=== PATIENT | male | born 1950 | race Caucasian/White ===

== ENCOUNTER 2023-09-20 09:47 | Outpatient (AMB) | payer MEDICARE, SELFPAY ==
--- NOTE | 2023-09-20 09:52 | MHC.OFFWIV ---
Intake Vital Signs 09/20/23 09:54 Height 5 ft 11 in Weight 175 lb BMI 24.4 BP 140/70 H Blood Pressure Location Lt brachial Position Sitting Pulse 66 Pulse Source Pulse Oximeter Pulse Oximetry (%) 98 Oxygen Delivery Method Room Air Intake Visit Reasons: R hand pain Intake Note: Patient is here today for right hand pain ongoing for about a year, some swelling in the wrist. Patient Tobacco Use Status: Never used Tobacco Respiratory Equipment Assistant Required: No Emergency Medical Services Coordinator: Not Required per policy Accompanied by: Self / Same As Patient Allergies Sulfa (Sulfonamide Antibiotics) Allergy (Intermediate, Verified 09/20/23 10:08) Unknown Medication List - Last Reconciled 09/20/23 by RICA Hollins- No Known Home Meds Do you need a note to return to daycare/school/sports/work: No HPI HPI Comments History of Present Illness Details Here today w/ c/o R hand numbness. Right hand dominant. Right hand slight numbness of fingers in the AM started 1 year ago Extending arm to the side relieved this initially Used supportive care at home w/ some mild effect Worse since onset Main area of pain is along the radial nerve Brushing teeth also exacerbates his sx. Very active Denies fever chills redness of the joint. Reports some sort of accident in the past year but without injury to the joint on the right wrist or hand PFSH Social History Patient Tobacco Use Status: Never used Tobacco Review of Systems Const All systems reviewed & are unremarkable except as noted in HPI and below Physical Exam Vital Signs: Last Vital Signs Pulse 66 09/20/23 09:54 BP 140/70 H 09/20/23 09:54 Pulse Ox 98 09/20/23 09:54 Oxygen Delivery Method Room Air 09/20/23 09:54 BMI result Body Mass Index 24.4 Const Other: Right wrist: Positive Tinel and Phalen's on the right Hand grasps strong Cap refill within normal limits Radial pulse within limits Assessment & Plan Assessment & Plan (1) Carpal tunnel syndrome of right wrist: Code(s): G56.01 - Carpal tunnel syndrome, right upper limb Plan: . Plan Discussed treatment options with him. He wishes to start with physical therapy and only pursue a hand surgery referral if needed. I did let him know that sometimes the wait to get into the hand surgeon can be sometimes I have placed this referral now and have advised him to schedule this and cancel if he feels physical therapy is effective. He can use a wrist splint at bedtime control the symptoms that he suffers 1st thing upon waking in the morning. This note is constructed using voice recognition software. While every effort has been made to ensure accuracy in costumed character, still errors may have been included Sometimes, these errors may affect the content or meaning of the given sentence . Orders: Orders PT Evaluation and Treatment Today G56.01 - Carpal tunnel syndrome, right upper limb Referrals Hand Surgery Referral G56.01 - Carpal tunnel syndrome, right upper limb Coding Level of Care Code Est Pt Level 3 (54327) Diagnoses Carpal tunnel syndrome of right wrist G56.01
[2023-09-20 09:54] VITALS: BP 140/70; PULSE 66; O2SAT 98; BMI 24.4
== END 2023-09-20 10:34 | disposition home or self-care (01) ==
PROVIDERS: Visit Provider Nurse Practitioner Family
DX: G56.01 Carpal tunnel syndrome, right upper limb (principal)
CPT/HCPCS: 99213

== ENCOUNTER 2023-10-18 10:56 | Outpatient (AMB) | payer MEDICARE, SELFPAY ==
--- NOTE | 2023-10-18 11:07 | A.OFFPC_ITS ---
Vital Signs 10/18/23 11:08 Height 5 ft 11 in Weight 5 lb 11 oz BMI 0.8 BP 136/74 Blood Pressure Location Rt brachial Position Sitting Respiration 13 Pulse 67 Pulse Source Pulse Oximeter Temp 98.6 F Temp Source Temporal Artery Scan Pulse Oximetry (%) 99 Oxygen Delivery Method Room Air Intake Visit Reasons: est care Intake Note: Patient is here to establish care and would like to discuss concerns with the provider. Metal Ceiling Builder Required: No Accompanied by: Self / Same As Patient Allergies Sulfa (Sulfonamide Antibiotics) Allergy (Intermediate, Verified 10/18/23 11:26) Unknown Medication List - Last Reconciled 10/18/23 by Florinda Pike, [facility]- No Known Home Meds Tobacco use date assessed: 10/18/23 Fall risk assessment: No Falls in past year Last assessed Fall Risk: 10/18/23 Dental Screening Dental Screen Date: 10/18/23 Did you have a dental visit in the last 12 months?: Yes Did you have a dental problem in the last 6 months where you did not have access to dental care?: No Was dental information given to patient?: Patient has dentist HPI HPI Comments History of Present Illness Details 73-year-old male with carpal tunnel synd michael, day Quervain's tenosynovitis, CVA 12/2022 [facility] for stroke [facility] Here today with no previous records Here today with complaints of numbness on right lateral thigh. Reports stroke w/ right josé manuel in 2022, Not on meds. Does not follow with Cards or Neuro. numbness right lateral upper leg, since stroke 12/2022. Intermittent. Has occurred 3 times in the last 3 months. Last time 1 week ago while hiking in [place]. REports normal strength. Denies swelling. Remains very active. Has no interest in labs or diagnostics for evaluation of this. [facility] Medical History (Updated 10/18/23 @ 13:09 by Linda Weiner CMA) Stroke Inguinal hernia Surgical History (Updated 10/18/23 @ 13:09 by Linda Weiner CMA) Hx of inguinal hernia surgery History of knee surgery History of hand surgery Family History (Updated 10/18/23 @ 13:09 by Linda Weiner CMA) Mother Cancer Father Cardiovascular disease Social History (Updated 10/18/23 @ 11:18 by Linda Weiner [facility]) Household Members: None Housing: Other Housing Other:: Mobile home 75 years or older and lives alone: No Alcohol intake: current Alcohol intake frequency: a few times a week Alcohol type: wine Patient Tobacco Use Status: Never used Tobacco e-Cigarette/Vaping Use: Never Used service: No Current occupational status: retired Current occupational exposures/hazards: No Cognitive needs: No Hearing needs: No Vision needs: No Questionnaire PHQ-9 Over the last 2 weeks, how often have you been bothered by any of the following problems? 1. Little interest or pleasure in doing things: not at all 2. Feeling down, depressed, or hopeless: not at all 3. Trouble falling or staying asleep, or sleeping too much: not at all 4. Feeling tired or having little energy: not at all 5. Poor appetite or overeating: not at all 6. Feeling bad about yourself - or that you are a failure or have let yourself or your family down: not at all 7. Trouble concentrating on things, such as reading the newspaper or watching te levision: not at all 8. Moving or speaking so slowly that other people could have noticed. Or the opposite - being so fidgety or restless that you have been moving around a lot more than usual: not at all 9. Thoughts that you would be better off or of hurting yourself in some way: not at all Total score: 0 Depression Screening Interpretation: Negative Depression Screening Done: Yes 94812 - PHQ-9 Billing: Yes Source: Developed by Drs. Derrick Garcia, Sirena Whitlock, Moo Lynn and colleagues, with an educational maycol from [employer]. Thrive Questionnaire Date Thrive assessed: 10/18/23 I am a: Patient What is your living situation today?: I have a steady place to live Within the past 12 months, did the food you bought not last and you didn't have the money to get more?: Never true Within the past 12 months, did you worry whether your food would run out before you got money to buy more?: Never true Do you have trouble paying for medicines?: No Do you have trouble getting transportation to medical appointments?: No Do you have trouble paying your heating and electricity bill?: No Do you have trouble taking care of your child, family member or friend?: No Do you have trouble with day-to-day activities such as bathing, preparing meals, shopping, managing finances, etc.?: No Are you currently unemployed and looking for a job?: No Are you interested in more education?: No Please select the resources that you would like help with: None Currently or been in a relationship where the following occur: no concerns reported THRIVE Score: 0 AUDIT C Alcohol Use Questionnaire (AUDIT-C) 1. How often do you have a drink containing alcohol?: Monthly or less 2. How many drinks containing alcohol do you have on a typical day when you are drinking?: 1 or 2 3. How often do you have six or more drinks on one occasion?: Never Total Score: 1 Score Reviewed/Action Taken: Yes AAMIR-7 AMB Questionnaire AAMIR-7 Date AAMIR - 7 assessed: 10/18/23 Feeling nervous, anxious, or on edge: 0 = Not at all Not being able to stop or control worryin = Not at all Worrying too much about different things: 0 = Not at all Trouble relaxin = Not at all Being so restless that it is hard to sit still: 0 = Not at all Becoming easily annoyed or irritable: 0 = Not at all Feeling afraid as if something awful might happen: 0 = Not at all Total AAMIR-7 score (0-4 normal; 5-9 mild; 10-14 moderate; 15-21 severe): 0 Source: Developed by Drs. Derrick Garcia, Sirena Whitlock, Moo Lynn and colleagues, with an educational maycol from [employer]. AAMIR-7 Assessment Billing AAMIR-7 Assessment Tool: AAMIR-7 Assessment 97281 Review of Systems Const All systems reviewed & are unremarkable except as noted in HPI and below Physical exam (Primary Care) Vital Signs: Last Vital Signs Temp 98.6 F 10/18/23 11:08 Pulse 67 10/18/23 11:08 Resp 13 10/18/23 11:08 BP 136/74 10/18/23 11:08 Pulse Ox 99 10/18/23 11:08 Oxygen Delivery Method Room Air 10/18/23 11:08 BMI result Body Mass Index 0.8 Tobacco/Smoking Status: Tobacco use Status Tobacco use date assessed 10/18/23 10/18/23 11:18 Patient Tobacco Use Status Never used Tobacco 10/18/23 11:18 e-Cigarette/Vaping Use Never Used 10/18/23 11:18 PHQ-9: PHQ-9 Score PHQ-9: Total score 0 10/18/23 11:38 Depression Screening Interpretation: Negative Thrive Assessment: Date of Thrive Assessment Date Thrive assessed 10/18/23 10/18/23 11:38 Currently or been in a relationship where the following occur: no concerns reported Const Other: Awake alert oriented Moves all extremities x4 neuro exam grossly intact Unable to reproduce the symptoms he complains of. No spinal tenderness. No CVAT. No edema. Assessment and Plan Assessment & Plan (1) Meralgia paresthetica, right lower limb: Comment: offered PT and labs. Declined at this time. will cont to monitor and f/u if interested in addl workup. Code(s): G57.11 - Meralgia paresthetica, right lower limb Plan This note is constructed using voice recognition software. While every effort has been made to ensure accuracy in square cutter, still errors may have been included Sometimes, these errors may affect the content or meaning of the given sentence . Total time spent caring for the patient today was 30 minutes. This includes time spent before the visit reviewing the chart, time spent during the visit, and time spent after the visit on documentation Coding Level of Care Code Est Pt Level 4 (20667) Diagnoses Meralgia paresthetica, right lower limb G57.11 Additional Codes AAMIR-7 Assessment Billing - AAMIR-7 Assessment Tool: AAMIR-7 Assessment 36824 ([id number])
[2023-10-18 11:08] VITALS: BP 136/74; PULSE 67; RESP 13; TEMP 37; O2SAT 99
== END 2023-10-18 11:40 | disposition home or self-care (01) ==
PROVIDERS: Visit Provider Nurse Practitioner Family
DX: G57.11 Meralgia paresthetica, right lower limb (principal)
CPT/HCPCS: 99214

== ENCOUNTER 2023-10-30 10:31 | Outpatient (AMB) | payer MEDICARE, SELFPAY ==
--- NOTE | 2023-10-30 10:50 | MHC.PC.OV ---
Vital Signs 10/30/23 10:51 Height 5 ft 11 in Weight 173 lb 0.4 oz BMI 24.1 BP 132/80 Blood Pressure Location Lt brachial Position Sitting Pulse 84 Pulse Source Pulse Oximeter Pulse Oximetry (%) 99 Oxygen Delivery Method Room Air Intake Visit Reasons: eye issue Intake Note: pt states left eye swelling X3days Learning Support Teacher Required: No Allergies Sulfa (Sulfonamide Antibiotics) Allergy (Intermediate, Verified 10/30/23 11:54) Unknown Medication List - Last [facility]30[facility]23 [facility] No Known Home Meds Tobacco use date assessed: 10/30/23 Fall risk assessment: No Falls in past year HPI HPI Comments History of Present Illness Details L upper eye lid swelling started a few days ago has been applying ice and hot comps ice helped more than the heat Reports normal vision No drainage Denies trauma or headache PFSH Medical History (Updated 10/18/23 @ 13:09 by Linda Weiner CMA) Stroke Inguinal hernia Surgical History (Updated 10/18/23 @ 13:09 by Linda Weiner CMA) Hx of inguinal hernia surgery History of knee surgery History of hand surgery Family History (Updated 10/18/23 @ 13:09 by Linda Weiner CMA) Mother Cancer Father Cardiovascular disease Social History (Updated 10/18/23 @ 11:18 by Linda Weiner CMA) Household Members: None Housing: Other Housing Other:: Mobile home 75 years or older and lives alone: No Alcohol intake: current Alcohol intake frequency: a few times a week Alcohol type: wine Patient Tobacco Use Status: Never used Tobacco e-Cigarette/Vaping Use: Never Used service: No Current occupational status: retired Current occupational exposures/hazards: No Cognitive needs: No Hearing needs: No Vision needs: No Questionnaire Thrive Questionnaire Date Thrive assessed: 10/18/23 I am a: Patient What is your living situation today?: I have a steady place to live Within the past 12 months, did the food you bought not last and you didn't have the money to get more?: Never true Within the past 12 months, did you worry whether your food would run out before you got money to buy more?: Never true Do you have trouble paying for medicines?: No Do you have trouble getting transportation to medical appointments?: No Do you have trouble paying your heating and electricity bill?: No Do you have trouble taking care of your child, family member or friend?: No Do you have trouble with day-to-day activities such as bathing, preparing meals, shopping, managing finances, etc.?: No Are you currently unemployed and looking for a job?: No Are you interested in more education?: No Please select the resources that you would like help with: None THRIVE Score: 0 AUDIT C Alcohol Use Questionnaire (AUDIT-C) 1. How often do you have a drink containing alcohol?: Monthly or less 2. How many drinks containing alcohol do you have on a typical day when you are drinking?: 1 or 2 3. How often do you have six or more drinks on one occasion?: Never Total Score: 1 Score Reviewed/Action Taken: Yes AAMIR-7 AMB Questionnaire AAMIR-7 Date AAMIR - 7 assessed: 10/18/23 Source: Developed by Drs. Derrick Garcia, Sirena Whitlock, Moo Lynn and colleagues, with an educational maycol from [employer]. Review of Systems Const All systems reviewed & are unremarkable except as noted in HPI and below Physical exam (Primary Care) Vital Signs: Last Vital Signs Pulse 84 10/30/23 10:51 BP 132/80 10/30/23 10:51 Pulse Ox 99 10/30/23 10:51 Oxygen Delivery Method Room Air 10/30/23 10:51 BMI result Body Mass Index 24.1 Tobacco/Smoking Status: Tobacco use Status Tobacco use date assessed 10/30/23 10/30/23 11:12 Patient Tobacco Use Status Never used Tobacco 10/30/23 10:53 e-Cigarette/Vaping Use Never Used 10/30/23 10:53 Thrive Assessment: Date of Thrive Assessment Date Thrive assessed 10/18/23 10/30/23 10:53 Const Other: PERRLA, EOMI, SCLERAS NONICTERIC BILAT LEFT UPPER LID + EDEMA AND ERYTHEMA W/O PERIORBITAL INVOLVEMENT, STYE NOTED, MILD YELLOW CRUSTING NOTED TO EYE LASHES Assessment and Plan Assessment & Plan (1) Hordeolum externum left upper eyelid: Code(s): H00.014 - Hordeolum externum left upper eyelid Medications: New erythromycin 0.5 inches ophthalmic (eye) BID 3.5 grams 0RF 5 days Coding Level of Care Code Est Pt Level 3 (34203) Diagnoses Hordeolum externum left upper eyelid H00.014
[2023-10-30 10:51] VITALS: BP 132/80; PULSE 84; O2SAT 99; BMI 24.1
== END 2023-10-30 12:00 | disposition home or self-care (01) ==
PROVIDERS: PCP Family Medicine; Visit Provider Nurse Practitioner Family
DX: H00.014 Hordeolum externum left upper eyelid (principal)
CPT/HCPCS: 99213

== ENCOUNTER 2023-10-31 09:30 | Outpatient (RCR) | payer MEDICARE, OTHER, SELFPAY ==
--- NOTE | 2023-10-14 11:20 | MHC.OT.EP ---
[address] [phone] Occupational Therapy Plan of Care Patient Name: Forest Marks Date of Evaluation: 10/14/23 Diagnosis: R CTS Pain Location: Mostly pain free at rest Sharp 8/10 pain through right thumb and radiating down radial wrist Tenderness over radial wrist Pain Score: 8 Pain Scale Used: Numeric (0 - 10) Aggravating Factors: Supination, grasping objects/free weights Alleviating Factors: Self massage to hand, ice at times Assessment: 73 yo male was seen in walk-in clinic 09/20/23 w/ right hand pain and edema, had been gradually worsening. He was referred to OT for further assessment and management. On assessment today, he reports pain free at baseline and no significant nighttime pain, but reports sharp discomfort w/ forearm supination and gripping tasks. He has arthritic deformities noted in digits w/ general end range stiffness, right worse than left, and mildly positive CMC grind test for OA. Otherwise provocative testing consistent with De Quervain's tendinitis. He will benefit from cont'd therapy services for conservative management through joint protection, activity modification and progression of strengthening and functional activities. Frequency and Duration: The patient will be seen 2x/wk for 4 weeks Short Term Goals: Ind w/ thumb spica orthosis wear Ind w/ joint protection techniques Ind w/ HEP/stretching program Residential Goals: Pt to report pain <3/10 w/ moderate daily activities Progress to strengthening routine w/ pain managed Right gross grasp > 80lb Treatment Plan: Therapeutic Exercise Therapeutic Activity Home Exercise Program Splinting Patient Education Edema Control ADL Training Ultrasound Iontophoresis Paraffin Fluidotherapy MHP Cold Packs Joint Mobilization Soft Tissue Mobilization Kinesiotaping Recommend neoprene thumb spica orthosis Trial ionto w/ dexamethasone Electronically Signed By: Shantell Ayala OTR/L CHT Please Sign and return to therapist. Thank you once again for your referral.
== END 2023-11-07 09:05 | disposition home or self-care (01) ==
LOC: HO.OT 09:30
PROVIDERS: PCP Family Medicine; Visit Provider Nurse Practitioner Family
DX: G56.01 Carpal tunnel syndrome, right upper limb (principal)
CPT/HCPCS: 97033; 97110; 97165

== ENCOUNTER 2023-12-02 08:56 | Outpatient (AMB) | payer MEDICARE, SELFPAY ==
[2023-12-02 09:16] VITALS: BP 120/78; PULSE 79; O2SAT 100; BMI 24.3
--- NOTE | 2023-12-02 09:16 | A.OFFPC_ITS ---
Vital Signs 12/02/23 09:16 Height 5 ft 11 in Weight 174 lb BMI 24.3 BP 120/78 Blood Pressure Location Lt brachial Position Sitting Pulse 79 Pulse Source Pulse Oximeter Pulse Oximetry (%) 100 Oxygen Delivery Method Room Air Intake Visit Reasons: Follow up regarding last appointment Intake Note: Patient is here for follow up on numbness in the right thigh. Allergies Sulfa (Sulfonamide Antibiotics) Allergy (Intermediate, Verified 12/02/23 09:20) Unknown Medication List - Last Reconciled 12/02/23 by JACQUE Hollins No Known Home Meds Tobacco use date assessed: 12/02/23 Fall risk assessment: No Falls in past year Last assessed Fall Risk: 12/02/23 HPI HPI Comments History of Present Illness Details 73-year-old male with carpal tunnel synd michael, day Quervain's tenosynovitis Health maintenance [facility] Here today to fu on complaints of numbness in Right thigh. started a few months ago. occurring more frequently only happening when standings never when lying or sitting down only affects right thigh. Denies any red flag neuro sx. [facility] Medical History (Updated 12/02/23 @ 09:46 by JACQUE Hollins) Stroke Inguinal hernia Surgical History (Updated 10/18/23 @ 13:09 by Linda Weiner CMA) Hx of inguinal hernia surgery History of knee surgery History of hand surgery Family History (Updated 10/18/23 @ 13:09 by Linda Weiner CMA) Mother Cancer Father Cardiovascular disease Social History (Updated 10/18/23 @ 11:18 by Linda Weiner CMA) Household Members: None Housing: Other Housing Other:: Mobile home 75 years or older and lives alone: No Alcohol intake: current Alcohol intake frequency: a few times a week Alcohol type: wine Patient Tobacco Use Status: Never used Tobacco e-Cigarette/Vaping Use: Never Used service: No Current occupational status: retired Current occupational exposures/hazards: No Cognitive needs: No Hearing needs: No Vision needs: No Questionnaire Thrive Questionnaire Date Thrive assessed: 10/18/23 AAMIR-7 AMB Questionnaire AAMIR-7 Date AAMIR - 7 assessed: 10/18/23 Source: Developed by Drs. Derrick Garcia, Moo Michel and colleagues, with an educational maycol from [employer]. Review of Systems Const All systems reviewed & are unremarkable except as noted in HPI and below Physical exam (Primary Care) Vital Signs: Last Vital Signs Pulse 79 12/02/23 09:16 BP 120/78 12/02/23 09:16 Pulse Ox 100 12/02/23 09:16 Oxygen Delivery Method Room Air 12/02/23 09:16 BMI result Body Mass Index 24.3 Tobacco/Smoking Status: Tobacco use Status Tobacco use date assessed 12/02/23 12/02/23 09:21 Patient Tobacco Use Status Never used Tobacco 12/02/23 09:19 e-Cigarette/Vaping Use Never Used 12/02/23 09:19 Thrive Assessment: Date of Thrive Assessment Date Thrive assessed 10/18/23 12/02/23 09:19 Const Other: FROM and normal strength RLE Neurovasc intact Assessment and Plan Assessment & Plan (1) Meralgia paresthetica, right lower limb: Comment: start PT If no improvement or worsening of sx, please return to office. At this time we will consider MRI Code(s): G57.11 - Meralgia paresthetica, right lower limb (2) Paresthesia of right leg: Code(s): R20.2 - Paresthesia of skin Plan This note is constructed using voice recognition software. While every effort has been made to ensure accuracy in wardrobe specialist, still errors may have been included Sometimes, these errors may affect the content or meaning of the given sentence . Total time spent caring for the patient today was 30 minutes. This includes time spent before the visit reviewing the chart, time spent during the visit, and time spent after the visit on documentation Orders: Orders PT Evaluation and Treatment Today G57.11 - Meralgia paresthetica, right lower limb, R20.2 - Paresthesia of skin Coding Level of Care Code Est Pt Level 4 (23734) Diagnoses Meralgia paresthetica, right lower limb G57.11 Paresthesia of right leg R20.2
== END 2023-12-02 10:50 | disposition home or self-care (01) ==
PROVIDERS: PCP Family Medicine; Visit Provider Nurse Practitioner Family
DX: G57.11 Meralgia paresthetica, right lower limb (principal); R20.2 Paresthesia of skin
CPT/HCPCS: 99214

== ENCOUNTER 2024-01-16 10:00 | Outpatient (RCR) | payer MEDICARE, OTHER, SELFPAY ==
--- NOTE | 2024-01-16 11:00 | MHC.PT.DC ---
[facility] [place] Office [place] Office [place] Office [address] Jaden Garcia [address] [phone] F: [phone] F: [phone] F: [phone] F: [phone] Physical Therapy Discharge Report Diagnosis: RIGHT THIGH PARESTHESIA (KP) Date of Surgery: Date of Evaluation: 12/17/23 Date of Discharge: 01/16/24 Treatments to Date: 7 Cancellations to Date: 0 No Shows to Date: 0 Discharge Status: Achieved Goals Improved Function Independent with HEP Discharge Summary: Pt has met all goals at this time and has returned to PLOF and ADLs. Pt reports minimally symptomatic at rare occasion now. Requesting d/c at this time so reviewed above exercises, given black TB today as well. LEFI completed and in chart. Electronically signed by: Jasmyn Pires PT DPT Please sign and return to therapist. Thank you for your referral.
== END 2024-01-16 11:00 | disposition home or self-care (01) ==
LOC: HO.PT 10:00
PROVIDERS: PCP Family Medicine; Visit Provider Nurse Practitioner Family
DX: G57.11 Meralgia paresthetica, right lower limb (principal); R20.2 Paresthesia of skin
CPT/HCPCS: 97110; 97161; 97535

== ENCOUNTER 2024-01-31 10:53 | Outpatient (AMB) | payer MEDICARE, SELFPAY ==
[2024-01-31 11:46] VITALS: BP 129/74; PULSE 69; O2SAT 99; BMI 22.9
--- NOTE | 2024-01-31 11:46 | MHC.PC.OV ---
Vital Signs 01/31/24 11:46 Height 5 ft 11 in Weight 164 lb BMI 22.9 BP 129/74 Blood Pressure Location Lt brachial Position Sitting Pulse 69 Pulse Source Pulse Oximeter Pulse Oximetry (%) 99 Oxygen Delivery Method Room Air Intake Visit Reasons: CPE Intake Note: Patient is here for physical, had tingling in right upper thigh, finished two weeks ago. Allergies Sulfa (Sulfonamide Antibiotics) Allergy (Intermediate, Verified 01/31/24 11:52) Unknown Tobacco use date assessed: 12/02/23 HPI CPE HPI Details 73 y/o male presents for a CPE with f/u labs and health maintenance. No recent labs to review. Has had colonoscopy x1 about 10 years ago. Pt reports tingling in R upper thigh which improved after physical therapy. HPI Comments History of Present Illness Details Documentation assistance for Josue Ren MD, was provided by Angelo Dong, Funds Development Director on 01/31/2024 at 12:31 PM EST. I, Dr. Ren, have read, observed, and verified documentation. PFSH Medical History Stroke Inguinal hernia Surgical History Hx of inguinal hernia surgery History of knee surgery History of hand surgery Family History Mother Cancer Father Cardiovascular disease Social History Household Members: None Housing: Other Housing Other:: Mobile home 75 years or older and lives alone: No Alcohol intake: current Alcohol intake frequency: a few times a week Alcohol type: wine Patient Tobacco Use Status: Never used Tobacco e-Cigarette/Vaping Use: Never Used service: No Current occupational status: retired Current occupational exposures/hazards: No Cognitive needs: No Hearing needs: No Vision needs: No Questionnaire PHQ-9 Over the last 2 weeks, how often have you been bothered by any of the following problems? 1. Little interest or pleasure in doing things: not at all 2. Feeling down, depressed, or hopeless: not at all 3. Trouble falling or staying asleep, or sleeping too much: not at all 4. Feeling tired or having little energy: not at all 5. Poor appetite or overeating: not at all 6. Feeling bad about yourself - or that you are a failure or have let yourself or your family down: not at all 7. Trouble concentrating on things, such as reading the newspaper or watching television: not at all 8. Moving or speaking so slowly that other people could have noticed. Or the opposite - being so fidgety or restless that you have been moving around a lot more than usual: not at all 9. Thoughts that you would be better off or of hurting yourself in some way: not at all Total score: 0 Depression Screening Interpretation: Negative Depression Screening Done: Yes 36718 - PHQ-9 Billing: Yes Source: Developed by Drs. Derrick Garcia, Sirena Whitlock, Moo Lynn and colleagues, with an educational maycol from [employer]. Thrive Questionnaire Date Thrive assessed: 10/18/23 I am a: Patient What is your living situation today?: I have a steady place to live Within the past 12 months, did the food you bought not last and you didn't have the money to get more?: Never true Within the past 12 months, did you worry whether your food would run out before you got money to buy more?: Never true Do you have trouble paying for medicines?: No Do you have trouble getting transportation to medical appointments?: No Do you have trouble paying your heating and electricity bill?: No Do you have trouble taking care of your child, family member or friend?: No Do you have trouble with day-to-day activities such as bathing, preparing meals, shopping, managing finances, etc.?: No Are you currently unemployed and looking for a job?: No Are you interested in more education?: No THRIVE Score: 0 AUDIT C Alcohol Use Questionnaire (AUDIT-C) 1. How often do you have a drink containing alcohol?: Monthly or less 2. How many drinks containing alcohol do you have on a typical day when you are drinking?: 1 or 2 3. How often do you have six or more drinks on one occasion?: Never Total Score: 1 AAMIR-7 AMB Questionnaire AAMIR-7 Date AAMIR - 7 assessed: 01/31/24 Feeling nervous, anxious, or on edge: 0 = Not at all Not being able to stop or control worryin = Not at all Worrying too much about different things: 0 = Not at all Trouble relaxin = Not at all Being so restless that it is hard to sit still: 0 = Not at all Becoming easily annoyed or irritable: 0 = Not at all Feeling afraid as if something awful might happen: 0 = Not at all Total AAMIR-7 score (0-4 normal; 5-9 mild; 10-14 moderate; 15-21 severe): 0 Source: Developed by Drs. Derrick Garcia, Sirena Whitlock, Moo Lynn and colleagues, with an educational maycol from [employer]. AAMIR-7 Assessment Billing AAMIR-7 Assessment Tool: AAMRI-7 Assessment 28311 Review of Systems Const Denies chills, Denies fatigue, Denies fever(s), Denies headache(s) and Denies weakness Eyes Denies change in vision ENT Denies dizziness, Denies headache(s), Denies hearing loss, Denies nasal congestion, Denies sinus pain, Denies sinus pressure and Denies sore throat Card Denies chest pain, Denies lightheadedness, Denies dyspnea and Denies other (palpitations) Resp Denies cough, Denies dyspnea and Denies wheezing GI Denies abdominal pain, Denies melena, Denies hematochezia, Denies change in bowel habits, Denies dyspepsia and Denies nausea Denies hematuria and Denies dysuria Musc Denies abnormal gait, Denies myalgias, Denies arthralgias, Denies numbness and Denies tingling Skin/Breast Denies rash, Denies unusual bruising and Denies wounds Neuro Denies abnormal gait, Denies dizziness, Denies headache(s), Denies memory loss, Denies numbness, Denies Sensory deficit (Neuro), Denies tingling and Denies weakness Psych Denies anxiety, Denies depression and Denies memory loss Endo Denies cold intolerance, Denies fatigue, Denies heat intolerance, Denies polydipsia and Denies polyuria Efren/Lymph Denies easy bleeding and Denies easy bruising Aller/Immun Denies wheezing Physical exam (Primary Care) Vital Signs: Last Vital Signs Pulse 69 01/31/24 11:46 BP 129/74 01/31/24 11:46 Pulse Ox 99 01/31/24 11:46 Oxygen Delivery Method Room Air 01/31/24 11:46 BMI result Body Mass Index 22.9 Tobacco/Smoking Status: Tobacco use Status Tobacco use date assessed 12/02/23 01/31/24 11:54 Patient Tobacco Use Status Never used Tobacco 01/31/24 11:54 e-Cigarette/Vaping Use Never Used 01/31/24 11:54 PHQ-9: PHQ-9 Score PHQ-9: Total score 0 01/31/24 11:54 Depression Screening Interpretation: Negative Thrive Assessment: Date of Thrive Assessment Date Thrive assessed 10/18/23 01/31/24 11:54 Const General: no acute distress, well developed, alert and awake Nutritional Appearance: well nourished Orientation/consciousness: patient oriented x3 HENMT Head: Yes normocephalic and Yes atraumatic Ears: hearing grossly normal bilaterally and TM's normal bilaterally General nose exam: Normal external nose present and Normal nares present Mouth: Normal oral and palatal mucosa present and moist mucous membranes Teeth and gingiva: dentition normal Throat: Yes posterior oropharynx normal Eyes General: appearance normal, both eyes and all related structures Pupils: Equal, round and reactive pupils present and Pupil accommodation reflex normal EOM: EOMs intact bilaterally Neck Neck: Yes normal visual inspection, Yes no lymphadenopathy and Yes trachea midline Thyroid: Thyroid normal Carotids: no bruits Lymphatic: no lymphadenopathy noted Chest Chest palpation & inspection: normal inspection of the chest Resp Effort & Inspection: normal respiratory effort Auscultation: clear to auscultation bilaterally Cardio Rate: regular rate Rhythm: regular rhythm Heart sounds: S1 normal heart sound present, S2 normal heart sound present, no gallops, no murmurs and no rubs Bruits: no abdominal aortic bruits and no carotid bruits GI Palpation (GI): No Abdominal aortic bruit present, Soft to palpation, nontender, No hepatosplenomegaly present and No Rebound tenderness present Auscultation: normal bowel sounds General: Yes no CVA tenderness Back/Spine/Pelvis Back: no CVA tenderness Cervical Spine: cervical ROM normal and No Cervical spine tenderness Thoracic/Lumbar Spine: thoraco-lumbar ROM normal, No pain with thoraco-lumbar ROM, No thoracic spinal tenderness and No lumbar spinal tenderness Skin Lesions: no lesions Rashes: no rashes Trauma: no lacerations or abrasions Wounds: no wounds Nails: normal Neuro General: patient oriented x3 Cranial nerves: Yes Equal, round and reactive pupils present Cognition (Neuro): normal cognition Gait exam (Neuro): Normal gait present Motor exam (neuro): 5/5 motor strength present throughout Sensory Exam: No Sensory deficit (Neuro) Deep tendon reflexes (DTR's): Right patellar reflex intensity grade: 2+ and Left patellar reflex intensity grade: 2+ Extrem General: Yes normal to inspection and No edema Psych Appearance: grossly normal Affect: normal affect Attitude: cooperative Thought process: Normal thought process present Assessment and Plan Assessment & Plan (1) Adult general medical exam: Code(s): Z00.00 - Encounter for general adult medical examination without abnormal findings Plan: 73-year-old?male?presents?for?complete?physical?exam Exam?within?normal?limits?except?as?described?below Encouraged?ongoing?healthy?diet?with?active?lifestyle?and?plenty?of?exercise (2) Paresthesia of right leg: Code(s): R20.2 - Paresthesia of skin Plan: Gets?numbness?and?tingling?at?right?lateral?aspect?of?thigh Has?attended?physical?therapy?which?resolves?the?problem?and?he?continues?to?do?these?exercises?at?home?now. (3) Wound of skin: Code(s): T14.8XXA - Other injury of unspecified body region, initial encounter Plan: Wound?at?right?anterior?forearm?with?mild?surrounding?erythema No?indication?for?an?antibiotic?at?this?time?but?he?will?watch?this?to?ensure?that?it?resolved He?had?a?tetanus?shot?last?year (4) Screening for colon cancer: Code(s): Z12.11 - Encounter for screening for malignant neoplasm of colon Plan: Colonoscopy?10?years?ago?which?was?negative?and?he?was?told?to?follow-up?in?10?years. No?family?history?of?colon?cancer?or?polyps Will?send?Cologuard?test (5) Screening for prostate cancer: Code(s): Z12.5 - Encounter for screening for malignant neoplasm of prostate Plan: Check?PSA Orders: Orders Comprehensive [place]. Panel Fast Today Z00.00 - Encounter for general adult medical examination without abnormal findings Complete Blood Count Auto Diff Today Z00.00 - Encounter for general adult medical examination without abnormal findings Microalbumin, Random (w Creat) Today I10 - Essential (primary) hypertension Prostate Specific Antigen Scr Today Z12.5 - Encounter for screening for malignant neoplasm of prostate Lipid Panel Today Z00.00 - Encounter for general adult medical examination without abnormal findings TSH reflex Free T4 Today Z00.00 - Encounter for general adult medical examination without abnormal findings UA and rflx microscopic Today Z00.00 - Encounter for general adult medical examination without abnormal findings Referrals Cologuard Test Z12.11 - Encounter for screening for malignant neoplasm of colon, Z12.12 - Encounter for screening for malignant neoplasm of rectum Coding Level of Care Code Est Pt Level 3 (22556) Est Pt Prev Care >65y(76814) Diagnoses Adult general medical exam Z00.00 Paresthesia of right leg R20.2 Wound of skin T14.8XXA Screening for colon cancer Z12.11 Screening for prostate cancer Z12.5 Additional Codes AAMIR-7 Assessment Billing - AAMIR-7 Assessment Tool: AAMIR-7 Assessment 45467 ([id number])
== END 2024-01-31 12:46 | disposition home or self-care (01) ==
PROVIDERS: PCP Family Medicine; Visit Provider Family Medicine
DX: Z00.00 Encounter for general adult medical examination without abnormal findings (principal); R20.2 Paresthesia of skin; T14.8XXA Other injury of unspecified body region, initial encounter; Z12.11 Encounter for screening for malignant neoplasm of colon; Z12.5 Encounter for screening for malignant neoplasm of prostate
CPT/HCPCS: 99397

== ENCOUNTER 2024-02-19 09:30 | Outpatient (REF) | payer MEDICARE, OTHER, SELFPAY ==
[2024-02-19 13:10] LABS: MANUAL DIFF FLAG NO
[2024-02-19 13:12] LABS: Basophils Percent Auto 0.5 % (0-2); Eosinophils Absolute Auto 0.1 X10*3/uL (0.0-0.4); Eosinophils Percent Auto 1.7 % (0-4); Hematocrit 44.7 % (42.0-52.0); Hemoglobin 14.5 g/dl (14.0-18.0); Imm Gran Abs Auto 0.01 X10*3/uL (0.00-0.03); Imm Gran Pct Auto 0.2 % (0.0-0.4); Lymphocytes Absolute Auto 1.7 X10*3/uL (1.2-4.9); Lymphocytes Percent Auto 28.5 % (20-40); Mean Corpuscular HGB Conc 32.4 g/dl (31.0-36.0); Mean Corpuscular Hemoglobin 30.8 pg (27.0-33.0); Mean Corpuscular Volume 94.9 fL (80.0-98.0); Mean Platelet Volume 9.2 fL (9.4-12.4); Monocytes Absolute Auto 0.6 X10*3/uL (0.1-1.2); Monocytes Percent Auto 9.7 % (2-11); Neutrophils Absolute Auto 3.5 x10*3/uL (2.0-8.3); Neutrophils Percent Auto 59.4 % (45-73); Platelet Count 256 X10*3/uL (160-400); Red Blood Count 4.71 X10*6/uL (4.60-5.80); Red Cell Distribution Width 12.7 % (11.0-16.0); White Blood Count 5.9 X10*3/uL (4.8-10.8)
[2024-02-19 13:23] LABS: Appearance Urine Clear; Color Urine Yellow; Glucose Urine UA Negative (Negative); Leukocyte Esterase Urine Negative (Negative); Nitrite Urine Negative (Negative); Specific Gravity - Urine 1.025 (1.005-1.025); Urine Blood Negative (Negative); Urine Ketones Negative (Negative); Urine Protein Negative (Neg-Trace)
[2024-02-19 13:30] LABS: Alanine Aminotransferase 15 U/L (0-40); Albumin Level 4.2 g/dL (3.5-5.0); Alkaline Phosphatase 65 U/L (39-117); Anion Gap 10 (12-20); Aspartate Amino Transferase 23 U/L (5-37); Bilirubin Total 1.6 mg/dL (0.0-1.0); Blood Urea Nitrogen 18 mg/dL (9-16); Calcium 9.7 mg/dL (8.4-10.2); Carbon Dioxide 29 mmol/L (22-29); Chloride 104 mmol/L (96-108); Cholesterol 222 mg/dL (<200); Estimated Glomerular Filt Rate > 60; Glucose Fasting 92 mg/dL (60-99); HDL Cholesterol 48 mg/dL (>40); LDL Cholesterol Calculated 160 mg/dL (<100); Potassium 4.3 mmol/L (3.3-5.1); Sodium 139 mmol/L (135-145); Total Protein 6.7 g/dL (6.5-8.0); Triglycerides 74 mg/dL (<150)
[2024-02-19 13:43] LABS: Prostate Specific Antigen Scr 5.93 ng/mL (<0.05-4.0)
[2024-02-19 13:51] LABS: TSH reflex Free T4 0.79 uIU/mL (0.32-4.0)
[2024-02-19 14:02] LABS: Creatinine Urine 172.76 mg/dL; Microalbum/Creatinine Ratio Ur 9.2 ug/mg cr (<30)
== END 2024-02-19 09:31 | disposition home or self-care (01) ==
LOC: HO.WFDLDS 09:30
PROVIDERS: Visit Provider Family Medicine
DX: Z00.00 Encounter for general adult medical examination without abnormal findings (principal); Z12.5 Encounter for screening for malignant neoplasm of prostate; I10 Essential (primary) hypertension
CPT/HCPCS: 36415; 80053; 80061; 81003; 82043; 82570; 84153; 84443; 85025

== ENCOUNTER 2024-02-27 09:11 | Outpatient (REF) | payer MEDICARE, OTHER, SELFPAY ==
[2024-02-27 12:42] LABS: Prostate Specific Antigen Scr 4.71 ng/mL (<0.05-4.0)
== END 2024-02-27 09:12 | disposition home or self-care (01) ==
LOC: HO.WFDLDS 09:11
PROVIDERS: Visit Provider Family Medicine
DX: R97.20 Elevated prostate specific antigen [PSA] (principal); Z12.5 Encounter for screening for malignant neoplasm of prostate
CPT/HCPCS: 36415; 84153

== ENCOUNTER 2024-04-24 10:48 | Outpatient (AMB) | payer MEDICARE, SELFPAY ==
--- NOTE | 2024-04-24 11:18 | AM.OFFWIN_ITS ---
Intake Vital Signs 04/24/24 11:22 Height 5 ft 11 in Weight 163 lb 2 oz BMI 22.7 BP 128/72 Blood Pressure Location Rt brachial Position Sitting Respiration 16 Pulse 62 Pulse Source Pulse Oximeter Pulse Oximetry (%) 99 Oxygen Delivery Method Room Air Intake Visit Reasons: est/ toenail fungus/ needs medication Intake Note: Fungus on all toes both feet. Requesting prescription for Jublia as it works well for his friends. Patient Tobacco Use Status: Never used Tobacco Allergies Sulfa (Sulfonamide Antibiotics) Allergy (Intermediate, Verified 04/24/24 11:52) Unknown Medication List - Last Reconciled 04/24/24 by Florinda Pike, [facility] No Known Home Meds Do you need a note to return to daycare/school/sports/work: No HPI HPI Comments History of Present Illness Details Pleasant 73-year-old female here today with chief complaints of onychomycosis affecting toenails of bilat feet. Reports that this has been ongoing for years. He would like a prescription for Jublia. Reports that he has done some research at home and has a friend in his using this and has worked quite effectively and therefore he would like it. Exam Onychomycosis on all toenails of bilat feet Plan Start Jublia. Advised for him to work with Jublia directly or his insurance company if this is not covered by his insurance he has a high [id number] cost. Educated on side effects to include ingrown toenails and skin sensitivity. This note is constructed using voice recognition software. While every effort has been made to ensure accuracy in consumer services consultant, still errors may have been included Sometimes, these errors may affect the content or meaning of the given sentence . [facility] Medical History Stroke Inguinal hernia Surgical History Hx of inguinal hernia surgery History of knee surgery History of hand surgery Family History Mother Cancer Father Cardiovascular disease Social History Household Members: None Housing: Other Housing Other:: Mobile home 75 years or older and lives alone: No Alcohol intake: current Alcohol intake frequency: a few times a week Alcohol type: wine Patient Tobacco Use Status: Never used Tobacco e-Cigarette/Vaping Use: Never Used service: No Current occupational status: retired Current occupational exposures/hazards: No Cognitive needs: No Hearing needs: No Vision needs: No Physical Exam Vital Signs: Last Vital Signs Pulse 62 04/24/24 11:22 Resp 16 04/24/24 11:22 BP 128/72 04/24/24 11:22 Pulse Ox 99 04/24/24 11:22 Oxygen Delivery Method Room Air 04/24/24 11:22 BMI result Body Mass Index 22.7 Assessment & Plan Assessment & Plan (1) Onychomycosis: Code(s): B35.1 - Tinea unguium Plan: . Plan . Medications: New efinaconazole 10% (Jublia) 1 appl topical BEDTIME 48 weeks 8 mL 1RF Coding Level of Care Code Est Pt Level 3 (67230) Diagnoses Onychomycosis B35.1
[2024-04-24 11:22] VITALS: BP 128/72; PULSE 62; RESP 16; O2SAT 99; BMI 22.7
== END 2024-04-24 11:56 | disposition home or self-care (01) ==
PROVIDERS: PCP Family Medicine; Visit Provider Nurse Practitioner Family
DX: B35.1 Tinea unguium (principal)
CPT/HCPCS: 99213

== ENCOUNTER 2024-04-28 08:56 | Outpatient (AMB) | payer MEDICARE, SELFPAY ==
--- NOTE | 2024-04-28 08:59 | A.OFFVIS_ITS ---
Intake Visit Reasons: elevated PSA Intake Note: New Patient presents for initial visit for elevated psa Last PSA 02/27/24: 4.71 Urology Medications: none Blood Thinner: none Nutrition Aides Teacher Required: No Accompanied by: Self / Same As Patient Allergies Sulfa (Sulfonamide Antibiotics) Allergy (Intermediate, Verified 04/28/24 09:31) Unknown Medication List - Last Reconciled 04/28/24 by JACQUE Tran efinaconazole 10% (Jublia) 1 appl topical BEDTIME 48 weeks HPI Comments Details: Forest is a 73-year-old male patient of Dr. Ren. He has a past medical history of stroke and inguinal hernia. He presents to the office today as a new patient for an elevated PSA. In review of patient's chart it appears PSAs are as follows 07/07 2.3, 03/11 4.7. When asked he denies any bothersome urinary issues or concerns. He denies any known family history of prostate cancer. ANDREA performed enlarged prostate smooth, no masses or nodules palpated. He denies urinary urgency, urinary frequency, incontinence, nocturia, hematuria, dysuria, foul smelling urine, changes to urinary stream, flank pain, fever, and or chills. He is happy with his current voiding parameters. We discussed at length potential causes of elevated PSA. Discussed obtaining retroperitoneal ultrasound for further assessment evaluation as well as redraw of PSA with no sex the night before, no caffeine morning of, and no heavy lifting 1-2 days prior. In office urinalysis results reviewed with the patient today. He otherwise offers no other issues or concerns at this time. [facility] Medical History Stroke Inguinal hernia Surgical History Hx of inguinal hernia surgery History of knee surgery History of hand surgery Family History Mother Cancer Father Cardiovascular disease Social History Household Members: None Housing: Other Housing Other:: Mobile home 75 years or older and lives alone: No Alcohol intake: current Alcohol intake frequency: a few times a week Alcohol type: wine Patient Tobacco Use Status: Never used Tobacco e-Cigarette/Vaping Use: Never Used service: No Current occupational status: retired Current occupational exposures/hazards: No Cognitive needs: No Hearing needs: No Vision needs: No Review of Systems Const All systems reviewed & are unremarkable except as noted in HPI and below Physical Exam Const General: cooperative, healthy appearing, comfortable, no acute distress, well developed, alert and awake Orientation/consciousness: patient oriented x3 Limitations: no limitations HEENT Head: Yes normal to inspection, Yes normocephalic and Yes atraumatic Ears: hearing grossly normal bilaterally Eyes General: appearance normal, both eyes and all related structures Neck Neck: Yes normal visual inspection and Yes trachea midline Chest Chest palpation & inspection: normal inspection of the chest Resp Effort & Inspection: normal respiratory effort and able to speak in complete sentences Cardio Rate: regular rate GI Inspection: Yes normal to inspection General: Yes no CVA tenderness Back/Spine/Pelvis Back: no CVA tenderness Skin General skin exam: no rashes or lesions noted Neuro General: patient oriented x3 Extrem General: Yes normal to inspection Psych Appearance: grossly normal and well kempt Mental Status: mental status grossly normal Speech and movement: Normal speech and movement present and Clear speech present Affect: normal affect Attitude: cooperative Thought process: Normal thought process present Thought content: Normal thought content present Insight: Fair insight present (Psych) Judgement: Fair judgement present (Psych) Results AMB Urinalysis, Automated UA Leukoctes 0 Cyrus/uL Last Edit by [employer] on 04/28/24 09:16 UA Nitrite Last Edit by [employer] on 04/28/24 09:16 UA Urobilinogen 0.2 mg/dL Last Edit by [employer] on 04/28/24 09:16 UA Protein 0 mg/dL Last Edit by [employer] on 04/28/24 09:16 UA pH 6.0 Last Edit by [employer] on 04/28/24 09:16 UA Blood 0 Fernando/uL Last Edit by [employer] on 04/28/24 09:16 UA Specific [place] 1.020 Last Edit by [employer] on 04/28/24 09:16 UA Ketone Last Edit by [employer] on 04/28/24 09:16 UA Bilirubin 0 mg/dL Last Edit by César Blanchard on 04/28/24 09:16 UA Glucose 0 mg/dL Last Edit by César Blanchard on 04/28/24 09:16 Results Reviewed Results Reviewed: Laboratory Last Values Urine pH (Auto) 6.0 04/28/24 09:06 Specific [place] (Auto) 1.020 04/28/24 09:06 Urine Protein (Auto) 0 mg/dL 04/28/24 09:06 Glucose (UA)(Auto) 0 mg/dL 04/28/24 09:06 Urine Blood (Auto) 0 Fernando/uL 04/28/24 09:06 Urine Bilirubin (Auto) 0 mg/dL 04/28/24 09:06 Urine Urobilinogen (Auto) 0.2 mg/dL 04/28/24 09:06 Leukocyte Esterase (Auto) 0 Cyrus/uL 04/28/24 09:06 Assessment & Plan Assessment & Plan (1) Elevated PSA: Code(s): R97.20 - Elevated prostate specific antigen [PSA] Category: Medical Plan In office urinalysis results reviewed with the patient today; as noted above. Recent PSA results reviewed with the patient today; as noted above. Discussed at length potential causes of elevated PSA. Will obtain redraw of PSA with no sex the night before, no caffeine morning of, no heavy lifting 1-2 days prior. Will obtain retroperitoneal ultrasound for further assessment evaluation. Patient currently denies any bothersome urinary issues or concerns. He reports be happy with current voiding parameters. Follow-up in 1-3 months with imaging and labs to be completed prior; or sooner with any issues, concerns, and or questions. Orders: Orders US retroperitoneal comp Today R97.20 - Elevated prostate specific antigen [PSA] AMB Urinalysis Automated Today Z13.9 - Encounter for screening, unspecified PSA,Total (Free>4and<10) Today R97.20 - Elevated prostate specific antigen [PSA] Patient Instructions: The patient had an opportunity to ask questions regarding the treatment plan. All questions were answered. Physical exam, labs, and imaging were discussed and reviewed in detail. As well as risks, benefits, and discussion of treatment choices. No major barriers to understanding were identified. The patient expressed understanding and agreement with the above treatment plan. The patient was made aware they should contact our office by phone for worsening of their current condition, the appearance of new symptoms, or with any questions or concerns. Compliance is encouraged with any medications and follow up testing that is ordered. It is a privilege to be allowed the opportunity to participate in? your urological care.? Again, if you have any questions or concerns If you have any questions or concerns please do not hesitate to contact me. The office is [phone]. This note is constructed using voice recognition software. While every effort has been made to ensure accuracy residential program director errors may have been included. Yours sincerely, JACQUE Tran Coding Level of Care Code New Pt Level 3 (72679) Diagnoses Elevated PSA R97.20
== END 2024-04-28 09:38 | disposition home or self-care (01) ==
PROVIDERS: PCP Family Medicine; Visit Provider Nurse Practitioner Family
DX: R97.20 Elevated prostate specific antigen [PSA] (principal); Z13.9 Encounter for screening, unspecified
CPT/HCPCS: 99203

== ENCOUNTER → 2024-04-28 08:56 | Outpatient (BNVA) | payer MEDICARE, SELFPAY | PROVIDERS: PCP Family Medicine; Visit Provider Nurse Practitioner Family | DX: R97.20 Elevated prostate specific antigen [PSA] (principal) | CPT/HCPCS: 81003; 99202 ==

== ENCOUNTER 2024-05-29 14:46 | Outpatient (REF) | payer MEDICARE, SELFPAY ==
[2024-05-29 16:27] LABS: PSA,Total (Free>4and<10) 6.24 ng/mL (0.00-4.00)
[2024-06-01 13:27] LABS: Free Prostate Spec Ag 1.2 ng/mL; Percent Free Prostate Spec Ag 18 % (calc) (>25); Prostate Specific Ag Total 6.6 ng/mL (< OR = 4.0)
== END 2024-05-29 14:47 | disposition home or self-care (01) ==
LOC: HO.LAB 14:46
PROVIDERS: PCP Family Medicine; Visit Provider Nurse Practitioner Family
DX: R97.20 Elevated prostate specific antigen [PSA] (principal); Z12.5 Encounter for screening for malignant neoplasm of prostate
CPT/HCPCS: 36415; 84153; 84154

== ENCOUNTER 2024-06-09 10:02 | Outpatient (REF) | payer MEDICARE, SELFPAY ==
--- NOTE | ~2024-06-09 | US_ITS ---
EXAMINATION: US RETROPERITONEAL COMPLETE (RENAL) CLINICAL INFORMATION: Limited PSA. COMPARISON: None available. TECHNIQUE: Real-time imaging of the kidneys and bladder. FINDINGS: RIGHT KIDNEY: 11 x 6 x 5 cm (SAG x AP x TRV). Volume is 191 cc . Normal echotexture. No solid or cystic lesion.. Renal cortical thickness is normal. No hydronephrosis. No gross calculus. LEFT KIDNEY: 11 x 6 x 6 cm (SAG x AP x TRV).. Volume is 201 cc . No solid or cystic lesion. Normal echotexture. Renal cortical thickness is normal. No hydronephrosis. No gross calcification/calculus. BLADDER: Fluid-filled. Bilateral ureteral jets are demonstrated. Prevoid bladder volume is 396 mL. Postvoid bladder volume is 25 mL. Prostate gland measures 6 cm in maximal length and volume 63 cc. US/US retroperitoneal comp IMPRESSION: No hydronephrosis. No gross renal lesion.. Electronically signed by: Amilcar Hennessy MD 06/16/2024 11:11 AM EDT
== END 2024-06-09 10:03 | disposition home or self-care (01) ==
LOC: HO.US 10:02
PROVIDERS: PCP Family Medicine; Visit Provider Nurse Practitioner Family
DX: R97.20 Elevated prostate specific antigen [PSA] (principal)
CPT/HCPCS: 76770

== ENCOUNTER → 2024-06-09 10:04 | Outpatient (BNV) | payer MEDICARE, SELFPAY | PROVIDERS: PCP Family Medicine; Visit Provider Radiology Diagnostic Radiology | DX: R97.20 Elevated prostate specific antigen [PSA] (principal) | CPT/HCPCS: 76770 ==

== ENCOUNTER 2024-06-16 08:42 | Outpatient (AMB) | payer MEDICARE, SELFPAY ==
--- NOTE | 2024-06-16 08:54 | MHC.OFFVIS ---
Intake Visit Reasons: 2m/US/PSA Intake Note: Patient presents today for follow up on: elevated psa, psa and ultrasound results Imaging completed: 06/09/24 PSA: 6.6 Urology Medications: none Blood Thinner: none Industrial Electrical Engineer Required: No Accompanied by: Self / Same As Patient Allergies Sulfa (Sulfonamide Antibiotics) Allergy (Intermediate, Verified 06/16/24 09:51) Unknown Medication List - Last Reconciled 06/16/24 by JIN TranP- levofloxacin 500 mg PO daily 3 days HPI Comments Details: Forest is a 73-year-old male patient of Dr. Ren. He has a past medical history of stroke and inguinal hernia. He presents to the office today for follow-up. Of note, patient was seen approximately 6 weeks ago as a new patient for an elevated PSA at which time a retroperitoneal ultrasound was ordered and redraw of PSA for further assessment evaluation. These results were reviewed with the patient today. Bilateral kidneys with no calculi, lesions, or hydronephrosis. The bladder's fluid filled. Bladder jets are demonstrated. Pre void bladder volume is a proximally 400 mL. Postvoid bladder volume is approximately 30 mL. Prostate gland measures approximately 63 cc. 07/07 2.3, 03/11 4.7, 06/11 6.6 % free PSA 18%. When asked he denies any bothersome urinary issues or concerns. He denies any known family history of prostate cancer. ANDREA performed during last office visit and noted enlarged prostate; smooth, no masses or nodules palpated. He denies urinary urgency, urinary frequency, incontinence, nocturia, hematuria, dysuria, foul smelling urine, changes to urinary stream, flank pain, fever, and or chills. He is happy with his current voiding parameters. We discussed at length potential causes of elevated PSA. PCPT risk calculator results reviewed with the patient today. Discussed 70% chance prostate biopsy is negative for prostate cancer, 20% chance of low-grade prostate cancer, and 10% chance of high-grade prostate cancer. We discussed at length further treatment options to include MRI of the prostate verses trial of finasteride verses prostate biopsy. Risks and benefits of these interventions were discussed. In office urinalysis results reviewed with the patient today. He otherwise offers no other issues or concerns at this time. [facility] Medical History Stroke Inguinal hernia Surgical History Hx of inguinal hernia surgery History of knee surgery History of hand surgery Family History Mother Cancer Father Cardiovascular disease Social History Household Members: None Housing: Other Housing Other:: Mobile home 75 years or older and lives alone: No Alcohol intake: current Alcohol intake frequency: a few times a week Alcohol type: wine Patient Tobacco Use Status: Never used Tobacco e-Cigarette/Vaping Use: Never Used service: No Current occupational status: retired Current occupational exposures/hazards: No Cognitive needs: No Hearing needs: No Vision needs: No Review of Systems Const All systems reviewed & are unremarkable except as noted in HPI and below Physical Exam Const General: cooperative, healthy appearing, comfortable, no acute distress, well developed, alert and awake Orientation/consciousness: patient oriented x3 Limitations: no limitations HEENT Head: Yes normal to inspection, Yes normocephalic and Yes atraumatic Ears: hearing grossly normal bilaterally Eyes General: appearance normal, both eyes and all related structures Neck Neck: Yes normal visual inspection and Yes trachea midline Chest Chest palpation & inspection: normal inspection of the chest Resp Effort & Inspection: normal respiratory effort and able to speak in complete sentences Cardio Rate: regular rate GI Inspection: Yes normal to inspection General: Yes no CVA tenderness Back/Spine/Pelvis Back: no CVA tenderness Skin General skin exam: no rashes or lesions noted Neuro General: patient oriented x3 Extrem General: Yes normal to inspection Psych Appearance: grossly normal and well kempt Mental Status: mental status grossly normal Speech and movement: Normal speech and movement present and Clear speech present Affect: normal affect Attitude: cooperative Thought process: Normal thought process present Thought content: Normal thought content present Insight: Fair insight present (Psych) Judgement: Fair judgement present (Psych) Results AMB Urinalysis, Automated UA Leukoctes 0 Cyrus/uL Last Edit by César Blanchard on 06/16/24 09:05 UA Nitrite Negative Last Edit by César Blanchard on 06/16/24 09:05 UA Urobilinogen 0.2 mg/dL Last Edit by César Blanchard on 06/16/24 09:05 UA Protein 0 mg/dL Last Edit by César Blanchard on 06/16/24 09:05 UA pH 6.0 Last Edit by César Blanchard on 06/16/24 09:05 UA Blood 0 Fernando/uL Last Edit by César Blanchard on 06/16/24 09:05 UA Specific [place] 1.025 Last Edit by César Blanchard on 06/16/24 09:05 UA Ketone Negative Last Edit by César Blanchard on 06/16/24 09:05 UA Bilirubin 0 mg/dL Last Edit by César Blanchard on 06/16/24 09:05 UA Glucose 0 mg/dL Last Edit by César Blanchard on 06/16/24 09:05 Results Reviewed Results Reviewed: Laboratory Last Values Urine pH (Auto) 6.0 06/16/24 09:03 Specific [place] (Auto) 1.025 06/16/24 09:03 Urine Protein (Auto) 0 mg/dL 06/16/24 09:03 Glucose (UA)(Auto) 0 mg/dL 06/16/24 09:03 Urine Ketones (Auto) Negative 06/16/24 09:03 Urine Blood (Auto) 0 Fernando/uL 06/16/24 09:03 Urine Nitrite (Auto) Negative 06/16/24 09:03 Urine Bilirubin (Auto) 0 mg/dL 06/16/24 09:03 Urine Urobilinogen (Auto) 0.2 mg/dL 06/16/24 09:03 Leukocyte Esterase (Auto) 0 Cyrus/uL 06/16/24 09:03 Date of Service: 06/09/24 EXAMINATION: US RETROPERITONEAL COMPLETE (RENAL) FINDINGS: RIGHT KIDNEY: 11 x 6 x 5 cm (SAG x AP x TRV). Volume is 191 cc . Normal echotexture. No solid or cystic lesion.. Renal cortical thickness is normal. No hydronephrosis. No gross calculus. LEFT KIDNEY: 11 x 6 x 6 cm (SAG x AP x TRV).. Volume is 201 cc . No solid or cystic lesion. Normal echotexture. Renal cortical thickness is normal. No hydronephrosis. No gross calcification/calculus. BLADDER: Fluid-filled. Bilateral ureteral jets are demonstrated. Prevoid bladder volume is 396 mL. Postvoid bladder volume is 25 mL. Prostate gland measures 6 cm in maximal length and volume 63 cc. IMPRESSION: No hydronephrosis. No gross renal lesion.. Assessment & Plan Assessment & Plan (1) Elevated PSA: Code(s): R97.20 - Elevated prostate specific antigen [PSA] Category: Medical (2) Enlarged prostate: Code(s): N40.0 - Benign prostatic hyperplasia without lower urinary tract symptoms Category: Medical Plan: Plan Risks and benefits regarding trans rectal ultrasound with prostate biopsy were discussed.? Options of continued surveillance, no treatment and biopsy were offered. The risks include but are not limited to, urinary tract infection, sepsis, difficulty urinating, bleeding into the rectum or bladder that requires intervention and transfusion,and failure to diagnose prostate cancer. The patient understands the options and the risks involved. They wish to proceed. Printed information was provided to ensure he remains off anticoagulation for the appropriate length of time. He may require cardiology or PCP clearance.? An antibiotic will be administered prior to, and following the procedure Plan In office urinalysis results reviewed with the patient today; as noted above. Recent retroperitoneal ultrasound results reviewed with the patient today; as noted above. Recent PSA results reviewed with the patient today; as noted above. We discussed at length potential causes of elevated PSA as well as further treatment options to include surveillance monitoring verses prostate biopsy verses MRI of the prostate. Risks and benefits of these interventions were discussed at length. All questions were answered. Will schedule for prostate biopsy. Discussed importance of taking antibiotic day before, day of, and day after procedure; prescription provided. Patient denies any bothersome urinary issues or concerns. He reports be happy with current voiding parameters. Follow-up per doctor's orders; or sooner with any issues, concerns, and or questions. Orders: Orders AMB Urinalysis Automated Today Z13.9 - Encounter for screening, unspecified Medications: New levofloxacin take 1 tablet day before procedure, 1 tablet day of procedure and 1 tablet day after procedure 500 mg PO daily 3 tabs 0RF 3 days Patient Instructions: The patient had an opportunity to ask questions regarding the treatment plan. All questions were answered. Physical exam, labs, and imaging were discussed and reviewed in detail. As well as risks, benefits, and discussion of treatment choices. No major barriers to understanding were identified. The patient expressed understanding and agreement with the above treatment plan. The patient was made aware they should contact our office by phone for worsening of their current condition, the appearance of new symptoms, or with any questions or concerns. Compliance is encouraged with any medications and follow up testing that is ordered. It is a privilege to be allowed the opportunity to participate in? your urological care.? Again, if you have any questions or concerns If you have any questions or concerns please do not hesitate to contact me. The office is [phone]. This note is constructed using voice recognition software. While every effort has been made to ensure accuracy video operator errors may have been included. Yours sincerely, JACQUE Tran Coding Level of Care Code Est Pt Level 4 (22846) Diagnoses Elevated PSA R97.20 Enlarged prostate N40.0
== END 2024-06-16 09:23 | disposition home or self-care (01) ==
LOC: HO.HUSH 08:43
PROVIDERS: PCP Nurse Practitioner Family; Visit Provider Nurse Practitioner Family
DX: R97.20 Elevated prostate specific antigen [PSA] (principal); N40.0 Benign prostatic hyperplasia without lower urinary tract symptoms; Z13.9 Encounter for screening, unspecified
CPT/HCPCS: 99214

== ENCOUNTER → 2024-06-16 08:42 | Outpatient (BNVA) | payer MEDICARE, SELFPAY | PROVIDERS: PCP Nurse Practitioner Family; Visit Provider Nurse Practitioner Family | DX: R97.20 Elevated prostate specific antigen [PSA] (principal); N40.0 Benign prostatic hyperplasia without lower urinary tract symptoms | CPT/HCPCS: 81003; 99212 ==

== ENCOUNTER 2024-06-23 08:52 | Outpatient (AMB) | payer MEDICARE, SELFPAY ==
--- NOTE | 2024-06-23 08:57 | MHC.OFFWIV ---
Intake Vital Signs 06/23/24 09:01 06/23/24 09:13 Height 5 ft 11 in Weight 165 lb 8 oz BMI 23.1 BP 158/74 H 132/68 Blood Pressure Location Lt brachial Lt brachial Position Sitting Sitting Respiration 14 Pulse 66 Pulse Source Pulse Oximeter Pulse Oximetry (%) 100 Oxygen Delivery Method Room Air Intake Visit Reasons: est/ear pain in both Intake Note: Patient complaining of both ears bothering, lightheaded and unbalanced x 1 week. Patient needs a medication prescribed jublia. Patient Tobacco Use Status: Never used Tobacco [employer] Member Other Ranks Required: No Allergies Sulfa (Sulfonamide Antibiotics) Allergy (Intermediate, Verified 06/23/24 09:07) Unknown Medication List - Last Re[facility]iled [facility]23[facility]24 [facility] No Known Home Meds Do you need a note to return to daycare/school/sports/work: No HPI HPI Comments History of Present Illness Details 73 y/o M with vertigo Here today for a walk in visit. Reports for the last 10 days, felt lightheaded, could not walk straight line without swaying, felt presyncopal. Since onset, less and less. Has appt with ENT Jul 23 2024 for chronic vertigo/BPPV. Right ear felt like listening through a shell, this has improved. Has never done vestibular therapy Ears do not hurt. Denies any drainage. Denies trauma. BP elevated upon intake. Recheck WNL. Not currently on medications Asked what his PSA was from 05/2024 w/ consult with Uro. Advised to fu with PCP and URo about this. PSA values provided to him Finally he asks for RX for Jublia for onychomycosis. Exam Awake alert oriented, no acute distress PERRLA, EOMI, no nystagmus EAC bilat clear, TM intact with mild congestion Nares patent, turbinates within normal limits Pharynx within normal limits Normal tandem walking, normal toe walking, normal heel walking, alert oriented, moves all extremities Plan Recommend to see ENT as scheduled in July. Try Flonase to see if this helps. He reports that he has a prescription at home. Referred for vestibular therapy. Fall precautions reviewed. Recommend a follow up with primary care provider as well as urologist in regards to his PSA Made aware that the Jublia which was prescribed was denied by insurance. Return to the office for routine follow up with primary care provider, sooner as needed This note is constructed using voice recognition software. While every effort has been made to ensure accuracy in warehouse distribution manager, still errors may have been included Sometimes, these errors may affect the content or meaning of the given sentence . Total time spent caring for the patient today was 30 minutes. This includes time spent before the visit reviewing the chart, time spent during the visit, and time spent after the visit on documentation PFSH Medical History Stroke Inguinal hernia Surgical History Hx of inguinal hernia surgery History of knee surgery History of hand surgery Family History Mother Cancer Father Cardiovascular disease Social History Household Members: None Housing: Other Housing Other:: Mobile home 75 years or older and lives alone: No Alcohol intake: current Alcohol intake frequency: a few times a week Alcohol type: wine Patient Tobacco Use Status: Never used Tobacco e-Cigarette/Vaping Use: Never Used service: No Current occupational status: retired Current occupational exposures/hazards: No Cognitive needs: No Hearing needs: No Vision needs: No Physical Exam Vital Signs: Last Vital Signs Pulse 66 06/23/24 09:01 Resp 14 06/23/24 09:01 BP 158/74 H 06/23/24 09:01 Pulse Ox 100 06/23/24 09:01 Oxygen Delivery Method Room Air 06/23/24 09:01 BMI result Body Mass Index 23.1 Assessment & Plan Assessment & Plan (1) Vertigo: Code(s): R42 - Dizziness and giddiness Plan: . (2) Onychomycosis: Code(s): B35.1 - Tinea unguium Plan: . (3) Elevated PSA: Code(s): R97.20 - Elevated prostate specific antigen [PSA] Plan: . (4) Elevated blood pressure reading without diagnosis of hypertension: Code(s): R03.0 - Elevated blood-pressure reading, without diagnosis of hypertension Plan: . (5) BPPV (benign paroxysmal positional vertigo): Comment: . Code(s): H81.10 - Benign paroxysmal vertigo, unspecified ear Qualifiers: Laterality: bilateral Qualified Code(s): H81.13 - Benign paroxysmal vertigo, bilateral Plan: . Orders: Orders PT Evaluation and Treatment Today H81.10 - Benign paroxysmal vertigo, unspecified ear, R42 - Dizziness and giddiness Medications: New fluticasone propionate 50 mcg/actuation administer into each nostril 1 spray intranasal BID 16 grams 0RF Coding Level of Care Code Est Pt Level 4 (58750) Diagnoses Vertigo R42 Onychomycosis B35.1 Elevated PSA R97.20 Elevated blood pressure reading without diagnosis of hypertension R03.0 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 Laterality: bilateral
[2024-06-23 09:01] VITALS: BP 158/74; PULSE 66; RESP 14; O2SAT 100; BMI 23.1
[2024-06-23 09:13] VITALS: BP 132/68
== END 2024-06-23 09:22 | disposition home or self-care (01) ==
PROVIDERS: PCP Nurse Practitioner Family; Visit Provider Nurse Practitioner Family
DX: B35.1 Tinea unguium (principal); R97.20 Elevated prostate specific antigen [PSA]; R03.0 Elevated blood-pressure reading, without diagnosis of hypertension; H81.13 Benign paroxysmal vertigo, bilateral

== ENCOUNTER → 2024-06-23 08:52 | Outpatient (BNVA) | payer MEDICARE, SELFPAY | PROVIDERS: PCP Nurse Practitioner Family | DX: R97.20 Elevated prostate specific antigen [PSA] (principal); R03.0 Elevated blood-pressure reading, without diagnosis of hypertension; H81.13 Benign paroxysmal vertigo, bilateral | CPT/HCPCS: 99212 ==

== ENCOUNTER 2024-07-02 08:02 | Outpatient (REF) | payer MEDICARE, SELFPAY ==
[2024-07-02] MEDS: Lidocaine HCl 1 % MPF 5 ML VIAL 10 ML SUBCUT (08:56)
--- NOTE | 2024-07-02 08:59 | W.PM.OPN ---
Operative Note Operative Note Date of Service: 07/02/24 Narrative: Preoperative diagnosis: Elevated PSA Postoperative diagnosis: Elevated PSA Procedure: 1. transrectal ultrasound measurement of prostate 2. transrectal ultrasound-guided pudendal nerve block 3. transrectal ultrasound-guided prostate biopsy 12 core Surgeon: Dr. Fred Rubin Anesthetic: 10cc 1% lidocaine Indications for procedure: Elevated PSA 06/11 6.6 18%F Counselling: Technical aspects, risks and benefits of proposed procedure were discussed in full. All questions have been answered, written consent has been obtained and patient agrees to proceed. Procedure: The patient was brought into the procedure area and placed in a left lateral decubitus position. Patient identity confirmed. Perioperative antibiotics confirmed. Safety pause time out performed. ANDREA was performed to dilate rectal sphincter Iodine 10cc with 60 cc gel was placed per rectum to reduce infection risk using a catheter tip syringe. 8 Hz Jazmine rectal end-fire ultrasound probe was placed transrectally without difficulty. The prostate was visualized. Seminal vesicles were normal. Prostate margins were clearly demarcated. Bladder was seen superiorly. No cystic structures were noted No calcifications were noted at the surgical margin The prostate was otherwise homogeneous in nature. No suspicious whorls on nodularity suggestive prostate cancer. The prostate was measured in 3 dimensions Prostatic Width: 5.4 cm Prostatic Height: 4.4 cm Urethral Length: 5.1 cm Total volume equals : 65 ml An ultrasound-guided pudendal nerve block was performed using a 22 gauge spinal needle in the sagittal plane. 4 cc of 1% lidocaine placed at the junction of each seminal vesicle and 2 cc placed at the apex of the prostate. A 12 core biopsy was performed with 6 cores each side using an 18 gauge prostate biopsy gun. Two cores each were taken at the prostate apex, mid and base on each side. Cores were spaced between lateral and medial aspects. Each core was examined as placed on specimen foam as part of quality audit representative to ensure a minimum 1 cm of length and minimal discontinuity. He tolerated the procedure well with minimal rectal bleeding. Blood pressure remained stable following procedure. He was able to ambulate to bathroom after 5 minutes. Printed instructions regarding antibiotic use and common adverse events from the procedure such as low-grade temperature, potential infection and bleeding were given. He understands to call the office or go to an emergency room should any of these events arise. Pathology: 12 core prostate biopsy. CPT code 64643: Transrectal ultrasound; this is a diagnostic test for evaluation of the prostate and surrounding structures, looking for abnormalities or suspicious areas worrisome for cancer CPT code 10007: Biopsy, prostate; needle or punch, single or multiple, any approach CPT code 55656: Ultrasonic guidance for needle placement (eg, biopsy, aspiration, injection, localization device), imaging supervision and interpretation
== END 2024-07-02 08:03 | disposition home or self-care (01) ==
LOC: HO.US 08:02
PROVIDERS: PCP Nurse Practitioner Family; Visit Provider Urology
DX: R97.20 Elevated prostate specific antigen [PSA] (principal)
CPT/HCPCS: 55700; 76942; 88305; J2003

== ENCOUNTER → 2024-07-02 08:02 | Outpatient (BNV) | payer MEDICARE, SELFPAY | PROVIDERS: PCP Nurse Practitioner Family; Visit Provider Urology | DX: R97.20 Elevated prostate specific antigen [PSA] (principal) | CPT/HCPCS: 55700; 76872; 76942 ==

== ENCOUNTER 2024-07-23 13:27 | Outpatient (AMB) | payer MEDICARE, SELFPAY ==
--- NOTE | 2024-07-23 13:25 | A.OFFVIS_ITS ---
Intake Visit Reasons: Prostate biopsy results Intake Note: Patient is present for PROSTATE BIOPSY RESULTS Urology Medication:NONE Antibiotic Allergy:SULFA Blood Thinner:NONE Stick Puller Required: No Allergies Sulfa (Sulfonamide Antibiotics) Allergy (Intermediate, Verified 07/28/24 14:21) Unknown HPI Comments Details: Forest is a pleasant male. He is a patient of Dr. Ren. He is seen for the following urologic conditions -prostate cancer Telemedicine Evaluation 15 min Consultation Your [employer] [facility] Video Prostate biopsy follow-up Biopsy performed followed for elevated PSA Results discussed Staging investigations to be completed 1) Deferred therapy/active surveillance. Recommended in the setting of low volume, very low risk and low risk disease. Criteria include 3 cores or less, same side, no core greater than 50% disease. Evaluation may be augmented with imaging such as pelvic MRI and genetic evaluation of biopsy material. Somatic tissue genetic testing such as Prolaris, which focuses on tumor-specific pathogenic variants that may identify an indication for further germline testing and can guide therapeutic decisions in the setting of low risk and low volume disease. - The patient is a candidate for active surveillance. NCCN Prostate Cancer Guideline 4.2022 PROS-F Page 2 PRINCIPLES OF ACTIVE SURVEILLANCE AND OBSERVATION Confirmatory Testing to Establish Appropriateness of Active Surveillance: - Goals of confirmatory testing are to help facilitate early identification of those patients who may be at a higher risk of future grade reclassification or cancer progression. - Since an initial prostate biopsy may underestimate tumor grade or volume, confirmatory testing is strongly recommended within the first 6 to 12 months of diagnosis for patients who are considering active surveillance. - Options for confirmatory testing include prostate biopsy, mpMRI with calculation of PSA density (and repeat biopsy as indicated), and/or molecular tumor analysis, see Principles of Risk Stratification (PROS-D). - Early confirmatory testing may not be necessary in patients who have had an mpMRI prior to diagnostic biopsy. ?All patients should undergo a confirmatory prostate biopsy within 1?2 years of their diagnostic biopsy Prostate cancer - 07/12 - grade group 1, NCCN ultra/low risk category 4.2023 PSA - 07/07 2.3, 03/11 4.7, 06/11 6.6 % free PSA 18% TRUS volume 65gm [id number] Histologic type: Acinar adenocarcinoma Histologic grade: Moderately differentiated Fatou score: 3+3=6 Tumor quantitation: Number cores positive: 5 ( LDL 4%, LL 25%, RMM 8%, RAL 4%, VARINDER 29%) Total number of cores: 12 Periprostatic fat inv.: Not identified Seminal vesicle inv.: Not identified Perineural inv.: Not identified LVI: Not identified Staging investigations to be completed [facility] Medical History Stroke Inguinal hernia Surgical History Hx of inguinal hernia surgery History of knee surgery History of hand surgery Family History Mother Cancer Father Cardiovascular disease Social History Household Members: None Housing: Other Housing Other:: Mobile home 75 years or older and lives alone: No Alcohol intake: current Alcohol intake frequency: a few times a week Alcohol type: wine Patient Tobacco Use Status: Never used Tobacco e-Cigarette/Vaping Use: Never Used service: No Current occupational status: retired Current occupational exposures/hazards: No Cognitive needs: No Hearing needs: No Vision needs: No Review of Systems Const Denies chills and Denies fever(s) Card Reports no additional complaints and Denies syncope Resp Denies cough GI Denies abdominal pain and Denies heartburn Reports as per HPI and Denies change in libido Neuro Denies syncope Psych Denies change in libido Endo Denies change in libido Physical Exam Const General: cooperative, healthy appearing, comfortable and no acute distress Orientation/consciousness: patient oriented x3 HEENT Face and sinus: Yes normal facial exam Mouth: moist mucous membranes Neck Neck: Yes normal visual inspection, Yes full ROM and Yes trachea midline Chest Chest palpation & inspection: normal inspection of the chest Resp Effort & Inspection: normal respiratory effort, able to speak in complete sentences and no respiratory distress GI Inspection: Yes normal to inspection Back/Spine/Pelvis Cervical Spine: normal cervical lordosis Thoracic/Lumbar Spine: thoracic and lumbar spine normal to inspection Skin General skin exam: no rashes or lesions noted Neuro General: patient oriented x3, gait normal, tone normal and moves all extremities Extrem General: Yes normal to inspection and Yes capillary refill normal Telehealth Telehealth Telehealth Platform: [facility] Location of provider rendering services: practice address Location of patient: address on file Patient Identification confirmed using: Name, : Yes Telehealth method: video Patient verbally consented to treatment: Yes Patient verbally consented to billing insurance company: Yes Patient informed of any privacy concerns related to visit: Yes Minutes spent on Phone/Video with Pt.: 15 Assessment & Plan Assessment & Plan (1) Hormone sensitive prostate cancer: Code(s): C61 - Malignant neoplasm of prostate; Z19.1 - Hormone sensitive malignancy status Category: Medical Plan Three-month follow-up PSA Consider finasteride If remains on surveillance will require imaging repeat biopsy at appropriate interval Orders: Orders PSA,Total (Free>4and<10) 3 Months C61 - Malignant neoplasm of prostate, Z19.1 - Hormone sensitive malignancy status Patient Instructions: Imaging studies, laboratory and physical exam results were discussed and reviewed in detail. No major barriers to patient understanding were identified. An opportunity to ask questions regarding the treatment plan was provided. All questions were answered. The patient expressed understanding and agreement with the above treatment plan. The patient is aware they should contact our office by phone for worsening of their current condition or the appearance of new urologic symptoms. Compliance is encouraged with any medications and followup testing that is ordered. It is a privilege to participate in the urologic care of your patient. If you have any questions or concerns regarding treatment for the above conditions, or other urologic issues, please do not hesitate to contact me. The office t elephone contact is [phone]. This note is constructed using voice recognition software. While every effort has been made to ensure accuracy dredge deckhand errors may have been included. Yours sincerely, Dr Fred Rubin MD, [facility] - Urology Providers of Expert, Compassionate Care for the Genitourinary System Coding Level of Care Code Tele Est Pt Level 4 (11897) Diagnoses Hormone sensitive prostate cancer C61; Z19.1
--- OUTSIDE RECORDS SUMMARY | 2024-07-29 02:35 | XMS_ITS | Data Portability ---
Author Organization [facility], Home Service Address [address] [place] [id number] Assessment Encounter Date Assessment Date Assessment LastModified by Organization Details LastModified Time 07/14/2018 07/14/2018 Patient presente d to office today for their Medicare Annual Wellness Visit. Education was provided on healthy nutrition, including a diet rich in fruits and vegetables, minimizing simple carbohydrates, salt, and saturated fats. Encouraged regular cardiovascular exercise such as walking at least 30 minutes daily, 5 times per week. Emphasized preventive health measures and educated pt on fall prevention and community-based lifestyle interventions to help reduce health risks and promote healthy living. tbalicki Not available 07/14/2018 14:56:29 07/13/2019 07/13/2019 Patient presente d to office today for their Medicare Annual Wellness Visit. Education was provided on healthy nutrition, including a diet rich in fruits and vegetables, minimizing simple carbohydrates, salt, and saturated fats. Encouraged regular cardiovascular exercise such as walking at least 30 minutes daily, 5 times per week. Emphasized preventive health measures and educated pt on fall prevention and community-based lifestyle interventions to help reduce health risks and promote healthy living. Not available 07/13/2019 10:22:19 Plan of Treatment Reminders Order Date Submit Date Provider Last Modified By Organization Details Last Modified Time Details Appointments None recorded. Lab lipid panel, blood 2017 018 RENEE Not available 8 08:06:53 CBC w/ auto diff 2017 018 RENEE Not available 8 08:06:53 CMP, serum or plasma 2017 018 RENEE Not available 8 08:06:53 urinalysi s, dipstick 2017 018 agatha [facility], 6 [facility] [place], [address], 8 16:34:24 CBC w/ auto diff 2018 019 [facility], 6 [facility],[place], [address], 9 08:25:27 culture, urine 2018 019 [facility], [address] [place] [address],[place], [address], 9 08:25:27 erythrocy te sedimenta tion rate by westergre n method 2018 019 [facility], [address] [place] [address],[place], [address], 9 08:25:27 vitamin D, 25-hydrox y, total, serum 2018 RENEE Not available 9 08:16:28 lipid panel, blood 2018 RENEE Not available 9 08:16:28 urinalysi s, dipstick 2018 abelanger 7 [facility] [place] [facility], [address] [place] [address],[place], [address], 9 10:22:21 CBC w/ auto diff 2018 RENEE Not available 9 08:16:28 CMP, serum or plasma 2018 RENEE Not available 9 08:16:27 hepatitis C Ab, serum 2018 abelanger 7 Not available 9 10:22:21 PSA, serum or plasma 2018 RENEE Not available 9 08:16:28 Referral physical therapist referral 2018 019 [facility], [address], [place], [address], 9 09:59:04 Procedures None recorded. Surgeries None recorded. Imaging XR, shoulder 2017 RENEE Not available 8 08:44:48 XR, cervical spine, 2 or 3 view 2017 RENEE Not available 8 08:44:48 US, testicle 2018 RENEE Not available 9 23:52:57 Medication Orders Medrol (Js) 4 mg tablets in a dose pack 2017 018 alicki [facility] [place] [place], [address] [place], [address], 9 11:02:41 doxycycli ne hyclate 100 mg tablet 2018 019 sbHiConversiono [facility] [place], [place], [address] [place], [address], 9 14:45:15 triamcino lone acetonide 0.1 % topical cream 2018 019 [employer] [facility] [place] [place], [address] [place], [address], 9 09:40:50 Patient TargetsNo targets recorded. Patient Instructions Encounter Date Encounter Id Patient Instructions Last Modified By Organization Details Last Modified Time 07/14/2018 [id number] rhythm strip, EKG* [email or web address] Not available 07/21/2018 08:10:08 Discussed and explained advance directives such as standard forms to the {{patient caregiv er patient and caregiver}}. Face to face discussion lasted for a duration of ___ minutes. bren Not available 07/14/2018 14:56:29 09/01/2018 [id number] Call if any increased symptoms agatha Not available 09/01/2018 11:54:56 05/15/2019 [id number] sciatica: care instructions Not available 05/15/2019 14:30:34 07/13/2019 [id number] advance care planning: care instructions Not available 07/13/2019 10:22:21 Discussed and explained advance directives such as standard forms to the {{patient caregiv er patient and caregiver}}. Face to face discussion lasted for a duration of ___ minutes. Not available 07/13/2019 09:53:49 Reason for Referral Physical Therapist Referral for Pain in right lower limb Referring Physician: Hey[facility], Encounter Date: 04/27/2019 Results Created Date Observation Date Name Description Value Unit Range Abnormal Flag Note LastModifiedBy Organization Detail LastModifiedTime 07/14/20 18 07/14/2018 urina lysis , dipst ick Leukocytes Negati ve Not Available [facility] [place] [facility] [address] [place] [address], [address], 07/14/2018 15:45:13 07/14/20 18 07/14/2018 urina lysis , dipst ick Nitrite negati ve Not Available [facility] [address] [place] [address], [address], 07/14/2018 15:45:13 07/14/20 18 07/14/2018 urina lysis , dipst ick Urobilinogen .2 Not Available [facility] [address] [place] [address], [address], 07/14/2018 15:45:13 07/14/20 18 07/14/2018 urina lysis , dipst ick Protein Negati ve Not Available [facility] [place] [facility] [address] [place] [address], [address], 07/14/2018 15:45:13 07/14/20 18 07/14/2018 urina lysis , dipst ick pH 6.5 Not Available [facility] [place] [facility] [address] [place] [address], [address], 07/14/2018 15:45:13 07/14/20 18 07/14/2018 urina lysis , dipst ick Blood Negati ve Not Available [facility] [place] [facility] [address] [place], [place] [address], [address], 07/14/2018 15:45:13 07/14/20 18 07/14/2018 urina lysis , dipst ick Specific Mobeetie 1.015 Not Available [facility] [place] [facility] [address] [place], [place] [address], [address], 07/14/2018 15:45:13 07/14/20 18 07/14/2018 urina lysis , dipst ick Ketone Negati ve Not Available [facility] [place] [facility] [address] [place], [place] [address], [address], 07/14/2018 15:45:13 07/14/20 18 07/14/2018 urina lysis , dipst ick Bilirubin Negati ve Not Available [facility] [place] [facility] [address] [place], [place] [address], [address], 07/14/2018 15:45:13 07/14/20 18 07/14/2018 urina lysis , dipst ick Glucose Negati ve Not Available [facility] [place] [facility] [address] [place], [place] [address], [address], 07/14/2018 15:45:13 07/14/20 18 07/14/2018 urina lysis , dipst ick Appearance Clear Not Available [facility] [place] [facility] [address] [place], [place] [address], [address], 07/14/2018 15:45:13 07/14/20 18 07/14/2018 urina lysis , dipst ick Color Pale Yellow Not Available [facility] [place] [facility] [address] [place], [place] [address], [address], 07/14/2018 15:45:13 11/25/07/13/2019 urina lysis , dipst ick Leukocytes Negati ve Not Available [facility] [place] [facility] [address] [place], [place] [address], [address], 07/13/2019 09:41:37 07/13/2007/13/2019 urina lysis , dipst ick Nitrite negati ve Not Available [facility] [place] [facility] [address] [place], [place] [address], [address], 07/13/2019 09:41:37 07/13/2007/13/2019 urina lysis , dipst ick Urobilinogen .2 Not Available [facility] [address] [place], [address], 07/13/2019 09:41:37 07/13/2007/13/2019 urina lysis , dipst ick Protein Negati ve Not Available [address] [place], [address], 07/13/2019 09:41:37 07/13/2007/13/2019 urina lysis , dipst ick pH 7.0 Not Available [address] [place], [address], 07/13/2019 09:41:37 07/13/2007/13/2019 urina lysis , dipst ick Blood Negati ve Not Available [facility] [place] [facility] [address] [place], [place] [address], [address], 07/13/2019 09:41:37 07/13/2007/13/2019 urina lysis , dipst ick Specific Mobeetie 1.020 Not Available [facility] [place] [facility] [address] [place], [place] [address], [address], 07/13/2019 09:41:37 07/13/2007/13/2019 urina lysis , dipst ick Ketone Negati ve Not Available [facility] [place] [facility] [address] [place], [place] [address], [address], 07/13/2019 09:41:37 07/13/20 19 07/13/2019 urina lysis , dipst ick Bilirubin Negati ve Not Available [facility] [place] [facility] [address] [place], [place] [address], [address], 07/13/2019 09:41:37 07/13/20 19 07/13/2019 urina lysis , dipst ick Glucose Negati ve Not Available [facility] [place] [facility] [address] [place], [place] [address], [address], 07/13/2019 09:41:37 07/13/20 19 07/13/2019 urina lysis , dipst ick Appearance Clear Not Available [facility] [place] [facility] [address] [place], [place] [address], [address], 07/13/2019 09:41:37 07/13/20 19 07/13/2019 urina lysis , dipst ick Color Yellow Not Available [facility] [address] [place] [address] [place], [address], 07/13/2019 09:41:37 07/16/20 18 07/15/2018 XR, cervi quinn spine , 2 or 3 view No observ ation record ed. [facility] (Radiology) [address] [place], [address], 07/18/2018 09:21:40 07/16/20 18 07/15/2018 XR, shoul gurdeep No observ ation record ed. [facility] (Radiology) [address] [place], [address], 07/18/2018 09:21:40 09/02/19 19 09/02/2018 US, moreno merle No observ ation record ed. [facility] [address], [place], [address], 04/27/2019 15:00:27 Result Notes None recorded. Problems Name Problem SNOMED Code Status Onset Date Resolution Date Notes Provider Name and Address Organization Details Recorded Time History of emphysema 364846039879 52850 Active 2017 [facility] 12:[facility]:24 Frostbite 652815829 Active 2017 left great toe Chiquita Cleo galloway [facility] 8 12:04:50 Mobitz type II atrioventr icular block 71234224 Active 2017 [facility] 8 12:05:26 Seasonal allergy 901895856 Active 2017 Melyssa Plummer NP, S [address],[place], [address], [facility] 8 15:05:50 Problem Notes None recorded. Procedures Surgical History Date Name Laterality Status Provider Name and Address Organization Details Recorded Time 4 colonoscopy completed Melyssa Plummer NP, S [address],[place], [place], [address], [facility] 07/14/2018 15:11:36 8 operative procedure on knee completed November [facility] [address],[place], [address], [facility] 07/13/2019 10:12:06 7 Unlisted px hands/fingers completed November [facility] [address],[place], [address], [facility] 07/13/2019 10:12:31 Remove tonsils and adenoids completed November [facility] 6 [facility],[place], [address], [facility] 07/13/2019 10:12:44 repair of inguinal hernia completed November [facility] [address],[place], [address], [facility] 07/13/2019 10:13:02 Imaging Results Imaging Date Name Status LastModified by Organiz ation Details LastModified Time 07/15/2018 XR, cervical spine, 2 or 3 view completed [facility] (Radiology) [address] [place], [address], 07/18/2018 09:21:40 07/15/2018 XR, shoulder completed [facility] ([facility]) [address] [place], [address], 07/18/2018 09:21:40 09/02/2018 US, testicle completed [email or web address] [place] [address] [facility] [address] [place], [address], 04/27/2019 15:00:27 Procedure Notes None recorded. Medical Equipment None Reported. Allergies Allergen ID Allergen Name Allergen Category Reaction Reaction Severity Criticality Documentation Date Start Date Code Code System Note Provider Name and Address Organization Details Recorded Time 1865 Substance with sulfonami de structure and antibacte rial mechanism of action (substanc e) medicatio n Not available Not available Not available 02/28/2018 50441 8003 SNOMED Melyssa Plummer NP, S [address] [place], [address], [facility] 8 15:05:10 2701 meclizine medicatio n Not available Not available Not available 09/01/2018 6676 RxNorm Chiquita Gallo [facility] 9 11:02:37 Medications Name Sig Start Date Stop Date Status Note LastModified by Organization Details LastModified Time amoxicillin 500 mg capsule 04/27 completed Not Available Not Available Not Available prednisone 10 mg tablet take 5 tabs x 2 daystake 4 tabs x 2 daystake 3 tabs x 2 daystake 2 tabs x 2 daystake 1 tab x 2 days 05/15 completed Not Available Not Available Not Available doxycycline hyclate 100 mg capsule 02/28 completed Not Available Not Available Not Available azithromyci n 250 mg tablet 02/28 completed Not Available Not Available Not Available ibuprofen 800 mg tablet 05/15 completed Not Available Not Available Not Available prednisone 20 mg tablet 07/13 completed Not Available Not Available Not Available ciprofloxac in 500 mg tablet 02/28 completed Not Available Not Available Not Available triamcinolo ne acetonide 0.1 % topical cream APPLY A THIN LAYER TO THE AFFECTED AREA(S) BY TOPICAL ROUTE 2 TIMES PER DAY 07/13 completed Not Available Not Available Not Available amoxicillin 875 mg tablet 02/28 completed Not Available Not Available Not Available methylpredn isolone 4 mg tablets in a dose pack as directed 09/01 completed Not Available Not Available Not Available fluticasone propionate 50 mcg/actuati on nasal spray,suspe nsion 07/14 completed Not Available Not Available Not Available doxycycline hyclate 100 mg tablet Take 1 tablet twice a day by oral route. 04/27 completed Not Available Not Available Not Available Cialis 20 mg tablet Take 1 tablet as needed by oral route. 2018 active Not Available Not Available Not Avai lable Vitals Date Recorded Body height Body mass index (BMI) Body weight Heart rate Oxygen saturation Oxygen saturation in Arterial blood by Pulse oximetry Provider Name and Address Organization Details Last Updated DateTime 9 177.17 cm 24.9 kg/m2 86955.6 1 g 71 /min 98 % 98 % Chelita Menezes [facility] 9 09:44:16 Date Recorded Systolic blood pressure Diastolic blood pressure Provider Name and Address Organization Details Last Updated DateTime 07/13/2019 122 mm[Hg] 70 mm[Hg] November SUE Soto [address] [place] [address], [address], [facility] 07/13/2019 10:21:59 Date Recorded Body height Body mass index (BMI) Body weight Heart rate Oxygen saturation Oxygen saturation in Arterial blood by Pulse oximetry Systolic blood pressure Diastolic blood pressure Provider Name and Address Organization Details Last Updated DateTime 8 177.17 cm 24.8 kg/m2 45488.1 7 g 72 /min 98 % 98 % 120 mm[Hg] 74 mm[Hg] Chiquita Gallo [facility] 8 15:00:35 Date Recorded Body height Body mass index (BMI) Body weight Oxygen saturation Oxygen saturation in Arterial blood by Pulse oximetry Heart rate Body temperature Systolic blood pressure Diastolic blood pressure Provider Name and Address Organization Details Last Updated DateTime 9 177.17 cm 25.6 kg/m2 73110.8 5 g 99 % 99 % 78 /min 98.1 [degF] 124 mm[Hg] 68 mm[Hg] Chiquita Cleo [facility] 9 11:04:04 Date Recorded Body height Body mass index (BMI) Body weight Heart rate Oxygen saturation Oxygen saturation in Arterial blood by Pulse oximetry Systolic blood pressure Diastolic blood pressure Provider Name and Address Organization Details Last Updated DateTime 9 177.17 cm 24.7 kg/m2 55478.9 4 g 70 /min 99 % 99 % 130 mm[Hg] 76 mm[Hg] Chelita Riri [facility] 9 14:46:35 Date Recorded Body height Body mass index (BMI) Body weight Heart rate Oxygen saturation Oxygen saturation in Arterial blood by Pulse oximetry Systolic blood pressure Diastolic blood pressure Provider Name and Address Organization Details Last Updated DateTime 9 177.17 cm 24.6 kg/m2 69210.7 8 g 69 /min 98 % 98 % 110 mm[Hg] 80 mm[Hg] Chelitajone Fongyasmin [facility] 9 14:16:22 Social History Question Answer Notes LastModified by Organizat ion Details LastModified Time Tobacco Smoking Status [facility] 07/14/2018 14:59:21 Do You Or Have You Ever Used E-cigarettes Or Vape? Never Used Electronic Cigarettes Information not available 07/13/2019 What Was The Date Of Your Most Recent Tobacco Screening? 09/01/2018 Information not available 03/12/2019 Do You Or Have You Ever Used Smokeless Tobacco? Never Used Smokeless Tobacco Information not available 07/13/2019 How Much Tobacco Do You Smoke? No Information not available 07/13/2019 How Many Years Have You Smoked Tobacco? 0 Information not available 07/13/2019 Sex: Unknown Functional Status None recorded. Mental Status None recorded. Family History Relationship Description Onset Age of this Age Resolved Age Notes LastModified by Organization Details LastModified Time Father Myocardial infarction Not available 06/20 10:10:38 Father Cerebrovascu lar accident Not available 10:10:47 Mother Malignant neoplasm of abdomen Not available 07/13 10:11:12 Medical History No medical history recorded. Past Encounters Encounter ID Performer Location Encounter Start Date Encounter Closed Date Diagnosis/Indication Diagnosis SNOMED-CT Code Diagnosis ICD10 Code [id number] Melyssa Plummer NP, [facility] [address] [place] [address],[place] [address] 02/28/2018 14:55:21 03/04/2018 08:06:35 On examination - rash present 349974205 R21 [id number] Melyssa Plummer NP, [facility] INTER[facility] MED[facility]INE [address] [place], [place] [address] , [place] [address] 07/14/2018 14:54:49 07/14/2018 15:46:20 Adult health examination 765552097 Z00.01 Screening for cardiovascular system disease 425067871 Z13.6 Pain in right arm 696265 004 M79.601 Atypical chest pain 1025 59756 R07.89 [id number] Melyssa Plummer NP, [facility] [address] [place] [address] [place] [address] 09/01/2018 10:52:36 09/01/2018 11:57:52 Pain in testicle 75268623 N50.819 [id number] [facility] INTERNAL [address],[facility] [place] [address] 04/27/2019 14:38:55 04/27/2019 15:14:55 Pain in right lower limb 382276038 M79.604 [id number] [facility] INTERNAL [address],[facility] [address] 05/15/2019 14:07:20 05/15/2019 14:32:51 Pruritic rash 77803441 L28.2 Sciatica 83782762 M54.30 [id number] [facility] INTERNAL MEDICINE [address] [place] [address] 07/13/2019 09:34:50 07/13/2019 10:27:49 Adult health examination 849734587 Z00.00 Active or passive immunization 731444830 Z23 Screening for cardiovascular system disease 217293534 Z13.6 Vitamin D deficiency 347 17285 E55.9 Cough 78566474 R05 Health Concerns Section Related Observation LastModified by Organization Detai ls LastModified Time None Recorded Concern Status LastModified by Organization Details LastModified Time None Recorded Advance Directives Directive None Recorded Payers Encounter Date Sequence Insurance Name Policy Number Policy Ramos Covered Member ID Ramos Member ID Guarantor Name 07/14/[address] [facility] (MEDICARE REPLACEMENT/A DVANTAGE - HMO) [id number] [employer] [id number] [employer] 09/01/[address] [facility] (MEDICARE REPLACEMENT/A DVANTAGE - HMO) [id number] [employer] [id number] [employer] 04/27/[address] [facility] (MEDICARE REPLACEMENT/A DVANTAGE - HMO) [id number] [employer] [id number] [employer] 05/15/2019 1 [facility] (MEDICARE REPLACEMENT/A DVANTAGE - HMO) [id number] [employer] [id number] [employer] 07/13/[address] [facility] (MEDICARE REPLACEMENT/A DVANTAGE - HMO) [id number] [employer] [id number] [employer] Notes Date Note Type Note Provider Name and Address Organization Details Recorded Time 07/14/2018 text/html Medicare Annual Wellness VisitReported bypatient.Diet and Nutrition:healthy diet Fracture Risk:no history of fractures; no recent explained fracture; no sudden unexplained fractures; no previous musculoskeletal injuries Physical Activity:exercises on a regular basis; good physical condition Depression Risk:never feels sad, empty, or tearful; no loss of interest in activities; no significant changes in weight; no sleep disturbances or insomnia; no agitation; no loss of energy; no feelings of worthlessness or guilt; no thoughts of suicide; no history of depression; no history of mood disorders Orientation:no disorientation to time; no disorientation to date; no disorientation to place Concentration and Memory:no decreased concentrating ability; does not forget words Speech/Motor difficulties:no speech difficulties; no difficulty expressing formulated concepts; no difficulty with fine manipulative tasks; no difficulty writing/copying; does not knock things over when trying to pick them up Hearing:no loss of hearing; had recent hearing exam Vision:no vision problems Activities of Daily Living:able to bathe with limited or no assistance; able to contol urination and bowels; able to dress with limited or no assistance; able to feed self with limited or no assistance; able to get out of chair or bed with limited or no assistance; able to groom with limited or no assistance; able to toilet with limited or no assistance Instrumental Activities of Daily Living:able to do house work with limited or no assistance; able to grocery shop with limited or no assistance; able to manage medications with limited or no assistance; able to manage money with limited or no assistance; able to prepare meals with limited or no assistance; able to use the phone with limited or no assistance Falls Risk Assessment:no frequent falls while walking; no fall in the past year; no fall since last visit;dizziness/verti go; recent episode, resolved Home Safety:no unsafe stairs; no unsafe gas appliances; working smoke/CO detectors; use of seatbelts; no vision or hearing loss while driving; no fire arms; has hand bars in the bathroom/shower; good lighting in the home August 2017 had CP/SOB- diagnosed with anxiety, ? r/t meclizine ?'s pinched nerve in right arm. 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 Also C/O anterior left chest pain without associated symptoms Melyssa Plummer NP, S [address] [place] [address], [address], [facility] 07/14/2018 16:35:01 09/01/2018 text/html Hx: orchiditis S ome recent ( 1 week ) on/off testicular discomfort ( 2 or 3 on pain scale ) More on left side No penile discharge, no rash No fever Denies back, abdominal pain, minimal suprapubic discomfort No hematuria, No BRBPR Melyssa Plummer NP, S [address] [place] [address], [address], [facility] 09/01/2018 11:55:11 04/27/2019 text/html c/o pain in the hamstring area for 1 week, but no injury, just woke up with some tension initially played 11 games of Ciapple ball yesterday and also has tightness in his right calf in the last week he has had a little bit of pain behind the knee, but mainly in the hamstring. occasionally has pain in the bottom of the heel when walking bare foot very active lifestyle, sports, bicycling, labor intense job. has had sciatica around 24 but this feels different this time. he denies any numbness or tingling at this time has tried ice and heat with some temporary relief denies weakness of the leg the pain is generalized in the back of the thigh cannot pinpoint an area of maximal pain pain is worse when walking and standing up straight, but not much more so than when sitting longest drive was to [place], but the pain preceded this trip has been using OTC ibuprofen with some relief has a bottle of oxycodone from his dentist pain at its worst is 8/10 presently the pain is 3/10 12 system ROS negative except where noted above- denies: chest pain, palpitations, sob, ankle swelling, visual problems, hearing problems, muscle aches or pains, numbness or tingling extremities, abdominal pain, bowel issues, bladder issues, sexual dysfunction, abnormal bleeding, sx of sinus/respiratory infection , headaches, dizziness/lightheaded ness, rashes, or nail changes. November SUE Soto [address] [place] [address], [address], [facility] 04/27/2019 15:11:32 05/15/2019 text/html rash right leg w chucho up with red spot a couple days ago then noticed a ring shaped indent adjacent at first just thought it was from his clothes but its persisted all day it isn't itchy or bothersome was wondering if this could be ring worm sciatica still bothersome but seeing pt now 12 system ROS negative except where noted above- denies: chest pain, palpitations, sob, ankle swelling, visual problems, hearing problems, muscle aches or pains, numbness or tingling extremities, abdominal pain, bowel issues, bladder issues, sexual dysfunction, abnormal bleeding, sx of sinus/respiratory infection , headaches, dizziness/lightheaded ness, rashes, or nail changes. SUE Finn [facility] [place], [address], [facility] 05/18/2019 13:40:00 07/13/2019 text/html Medicare Annual Wellness VisitReported bypatient.Diet and Nutrition:healthy diet; discussed vitamin and supplement use Fracture Risk:no recent explained fracture; no sudden unexplained fractures; no previous musculoskeletal injuries;history of fractures Physical Activity:exercises on a regular basis; good physical condition Depression Risk:never feels sad, empty, or tearful; no loss of interest in activities; no significant changes in weight; no sleep disturbances or insomnia; no agitation; no loss of energy; no feelings of worthlessness or guilt; no thoughts of suicide; no history of depression; no history of mood disorders Orientation:no disorientation to time; no disorientation to date; no disorientation to place Concentration and Memory:no decreased concentrating ability; no memory lapses or loss; does not forget words Speech/Motor difficulties:no speech difficulties; no difficulty expressing formulated concepts; no difficulty with fine manipulative tasks; no difficulty writing/copying; no slowed reaction time; does not knock things over when trying to pick them up Hearing:no loss of hearing Vision:no vision problems Activities of Daily Living:able to bathe with limited or no assistance; able to contol urination and bowels; able to dress with limited or no assistance; able to feed self with limited or no assistance; able to get out of chair or bed with limited or no assistance; able to groom with limited or no assistance; able to toilet with limited or no assistance Instrumental Activities of Daily Living:able to do house work with limited or no assistance; able to grocery shop with limited or no assistance; able to manage medications with limited or no assistance; able to manage money with limited or no assistance; able to prepare meals with limited or no assistance; able to use the phone with limited or no assistance Falls Risk Assessment:no frequent falls while walking; no fall in the past year; no fall since last visit; no dizziness/vertigo Home Safety:reviewed sun protection; no unsafe radha hazzards; no unsafe stairs; no unsafe gas appliances; working smoke/CO detectors; wears protective head gear for biking/high velocity; use of seatbelts; no vision or hearing loss while driving; has hand bars in the bathroom/shower; good lighting in the home November [facility]UE Soto [facility] [place], [address], [facility] 07/13/2019 10:27:14
== END 2024-07-23 14:26 | disposition home or self-care (01) ==
LOC: HO.HUSH 13:27
PROVIDERS: PCP Nurse Practitioner Family; Visit Provider Urology
DX: C61 Malignant neoplasm of prostate (principal); Z19.1 Hormone sensitive malignancy status
CPT/HCPCS: 99214

== ENCOUNTER 2024-07-28 14:12 | Outpatient (AMB) | payer MEDICARE, SELFPAY ==
[2024-07-28 14:20] VITALS: BP 130/60; PULSE 60; RESP 16; O2SAT 98; BMI 23.3
--- NOTE | 2024-07-28 14:20 | A.OFFPC_ITS ---
Vital Signs 07/28/24 14:20 Height 5 ft 11 in Weight 167 lb 4 oz BMI 23.3 BP 130/60 Blood Pressure Location Rt brachial Position Sitting Respiration 16 Pulse 60 Pulse Source Pulse Oximeter Pulse Oximetry (%) 98 Oxygen Delivery Method Room Air Intake Visit Reasons: pt referral Intake Note: right leg pain Allergies Sulfa (Sulfonamide Antibiotics) Allergy (Intermediate, Verified 07/28/24 14:21) Unknown Tobacco use date assessed: 12/02/23 HPI pt referral HPI Details 74 y/o male presents today with complain ts of R leg pain, back pain. Has noted pain seems to worsen in the morning. Pain improves significantly with alleve. Had been having trouble getting referral to physical therapy. [facility] Medical History Stroke Inguinal hernia Surgical History Hx of inguinal hernia surgery History of knee surgery History of hand surgery Family History Mother Cancer Father Cardiovascular disease Social History Household Members: None Housing: Other Housing Other:: Mobile home 75 years or older and lives alone: No Alcohol intake: current Alcohol intake frequency: a few times a week Alcohol type: wine Patient Tobacco Use Status: Never used Tobacco e-Cigarette/Vaping Use: Never Used service: No Current occupational status: retired Current occupational exposures/hazards: No Cognitive needs: No Hearing needs: No Vision needs: No Questionnaire PHQ-9 Over the last 2 weeks, how often have you been bothered by any of the following problems? 4. Feeling tired or having little energy: not at all 5. Poor appetite or overeating: not at all 6. Feeling bad about yourself - or that you are a failure or have let yourself or your family down: not at all 7. Trouble concentrating on things, such as reading the newspaper or watching television: not at all 8. Moving or speaking so slowly that other people could have noticed. Or the opposite - being so fidgety or restless that you have been moving around a lot more than usual: not at all 9. Thoughts that you would be better off or of hurting yourself in some way: not at all Source: Developed by Drs. Derrick Garcia, Sirena Whitlock, Moo Lynn and colleagues, with an educational maycol from [employer]. Thrive Questionnaire Date Thrive assessed: 10/18/23 I am a: Patient What is your living situation today?: I have a steady place to live Within the past 12 months, did the food you bought not last and you didn't have the money to get more?: I choose not to answer this question Within the past 12 months, did you worry whether your food would run out before you got money to buy more?: Never true Do you have trouble paying for medicines?: No Do you have trouble getting transportation to medical appointments?: No Do you have trouble paying your heating and electricity bill?: No Do you have trouble taking care of your child, family member or friend?: I choose not to answer this question Do you have trouble with day-to-day activities such as bathing, preparing meals, shopping, managing finances, etc.?: No Are you currently unemployed and looking for a job?: No Are you interested in more education?: No Please select the resources that you would like help with: None Currently or been in a relationship where the following occur: I choose not to answer THRIVE Score: 0 AUDIT C Alcohol Use Questionnaire (AUDIT-C) 1. How often do you have a drink containing alcohol?: Monthly or less 2. How many drinks containing alcohol do you have on a typical day when you are drinking?: 1 or 2 3. How often do you have six or more drinks on one occasion?: Never Total Score: 1 AAMIR-7 AMB Questionnaire AAMIR-7 Date AAMIR - 7 assessed: 01/31/24 Feeling nervous, anxious, or on edge: 0 = Not at all Not being able to stop or control worryin = Not at all Worrying too much about different things: 0 = Not at all Trouble relaxin = Not at all Being so restless that it is hard to sit still: 0 = Not at all Becoming easily annoyed or irritable: 0 = Not at all Feeling afraid as if something awful might happen: 0 = Not at all Total AAMIR-7 score (0-4 normal; 5-9 mild; 10-14 moderate; 15-21 severe): 0 Source: Developed by Drs. Derrick Garcia, Sirena Whitlock, Moo Lynn and colleagues, with an educational maycol from [employer]. Review of Systems Const Denies chills, Denies fatigue, Denies fever(s), Denies headache(s) and Denies weakness ENT Denies dizziness and Denies headache(s) Card Denies dyspnea Resp Denies cough, Denies dyspnea, Denies wheezing and Denies other (shortness of breath) Musc Details: R Leg pain Reports back pain, Denies numbness and Denies tingling Neuro Denies dizziness, Denies headache(s), Denies numbness, Denies tingling and Denies weakness Psych Denies anxiety and Denies depression Endo Denies fatigue Aller/Immun Denies wheezing Physical exam (Primary Care) Vital Signs: Last Vital Signs Pulse 60 07/28/24 14:20 Resp 16 07/28/24 14:20 BP 130/60 07/28/24 14:20 Pulse Ox 98 07/28/24 14:20 Oxygen Delivery Method Room Air 07/28/24 14:20 BMI result Body Mass Index 23.3 Tobacco/Smoking Status: Tobacco use Status Tobacco use date assessed 12/02/23 07/28/24 14:22 Patient Tobacco Use Status Never used Tobacco 07/28/24 14:22 e-Cigarette/Vaping Use Never Used 07/28/24 14:22 Thrive Assessment: Date of Thrive Assessment Date Thrive assessed 10/18/23 07/28/24 14:22 Currently or been in a relationship where the following occur: I choose not to answer Const General: well developed; No acute distress Nutritional Appearance: well nourished Orientation/consciousness: patient oriented x3 [facility] Head: Yes normocephalic and Yes atraumatic Eyes General: appearance normal, both eyes and all related structures Pupils: Equal, round and reactive pupils present EOM: EOMs intact bilaterally Resp Effort & Inspection: normal respiratory effort Neuro General: patient oriented x3 and gait normal Cranial nerves: Yes Equal, round and reactive pupils present Psych Affect: normal affect Coding Level of Care Code Est Pt Level 3 (10022) Diagnoses Right leg pain M79.604 Back pain M54.9 Lumbar radiculopathy M54.16 Assessment & Plan Assessment & Plan (1) Right leg pain: Code(s): M79.604 - Pain in right leg Category: Medical Plan: Patient?has?right?thigh?pain?and?numbness/tingling?which?is?worse?in?the?morning ?and?also?relieved?with?lumbar?extension Also?improved?significantly?with?a?leave Ma y?have?chronic?right?thigh?muscle?strain?however?concern?for?lumbar?radiculopath y?and?may?have?disc?injury?or?swelling. Ordered?physical?therapy Use?Aleve?as?an?anti-inflammatory?medication Ice/heat Follow-up?in?4-6?weeks.??If?not?improving?or?worsening?will?get?imaging?and?cons ider?referral?for?injection?therapy (2) Back pain: Code(s): M54.9 - Dorsalgia, unspecified Category: Medical Plan: As?above (3) Lumbar radiculopathy: Code(s): M54.16 - Radiculopathy, lumbar region Category: Medical Plan: As?above Orders: Orders PT Evaluation and Treatment Today M54.16 - Radiculopathy, lumbar region, M79.651 - Pain in right thigh
== END 2024-07-28 15:05 | disposition home or self-care (01) ==
PROVIDERS: PCP Nurse Practitioner Family; Visit Provider Family Medicine
DX: M79.604 Pain in right leg (principal); M54.9 Dorsalgia, unspecified; M54.16 Radiculopathy, lumbar region

== ENCOUNTER → 2024-07-28 14:12 | Outpatient (BNVA) | payer MEDICARE, SELFPAY | PROVIDERS: PCP Nurse Practitioner Family; Visit Provider Family Medicine | DX: M79.604 Pain in right leg (principal); M54.9 Dorsalgia, unspecified; M54.16 Radiculopathy, lumbar region | CPT/HCPCS: 99212 ==

== ENCOUNTER 2024-08-20 08:45 | Outpatient (AMB) | payer MEDICARE, SELFPAY ==
--- OUTSIDE RECORDS SUMMARY | 2024-08-20 08:48 | XMS_ITS | Data Portability ---
Author Organization [facility], Home Service Address [address] [place] [address] Assessment Encounter Date Assessment Date Assessment LastModified [...] 08:06:53 CMP, serum or plasma 2017 018 REENE Not available 8 08:06:53 urinalysi s, dipstick 2017 018 agatha [facility], [address] [facility], [address], [place], [address], 8 16:34:24 CBC w/ auto diff 2018 019 [facility], [address] [facility], [address], [place], [address], 9 08:25:27 culture, urine 2018 019 [facility], [address] [place] [address], [address], [place], [address], 9 08:25:27 erythrocy te sedimenta tion rate by westergre n method 2018 [facility], [address] [place] [address], [address], [place], [address], 9 08:25:27 vitamin D, 25-hydrox y, total, serum 2018 RENEE Not available 9 08:16:28 lipid panel, blood 2018 RENEE Not available 9 08:16:28 urinalysi s, dipstick 2018 abelanger 7 [facility], [address] [place] [address], [address], [place], [address], 9 10:22:21 CBC w/ auto diff 2018 RENEE Not available 9 08:16:28 CMP, serum or plasma 2018 RENEE Not available 9 08:16:27 hepatitis C Ab, serum 2018 abelanger 7 Not available 9 10:22:21 PSA, serum or plasma 2018 RENEE Not available 9 08:16:28 Referral physical therapist referral 2018 019 [facility], [address] [place], [address], 9 09:59:04 Procedures None recorded. Surgeries None recorded. Imaging XR, shoulder 2017 RENEE Not available 8 08:44:48 XR, cervical spine, 2 or 3 view 2017 018 RENEE Not available 8 08:44:48 US, testicle 2018 RENEE Not available 9 23:52:57 Medication Orders Medrol (Js) 4 mg tablets in a dose pack 2017 018 tbevansi [facility] [place] [place], [address] [place], [address], 9 11:02:41 doxycycli ne hyclate 100 mg tablet 2018 019 sbjuan pabloo [facility] [place] [place], [address] [place], [address], 9 14:45:15 triamcino lone acetonide 0.1 % topical cream 2018 019 sbjuan pabloo [facility] [place], [place], [address] [place], [address], 9 09:40:50 Patient TargetsNo targets recorded. Patient Instructions Encounter Date Encounter Id Patient Instructions Last Modified By Organization Details Last Modified Time 07/14/2018 [id number] rhythm strip, EKG* shahab Not available 07/21/2018 08:10:08 Discussed and explained advance directives such as standard forms to the {{patient caregiv er patient and caregiver}}. Face to face discussion lasted for a duration of ___ minutes. tbalisarah Not available 07/14/2018 14:56:29 09/01/2018 [id number] Call if any increased symptoms eskawski Not available 09/01/2018 11:54:56 05/15/2019 [id number] sciatica: care instructions Not available 05/15/2019 14:30:34 07/13/2019 [id number] advance care planning: care instructions Not available [...] dipst ick Leukocytes Negati ve Not Available [facility] [address], [address], 07/14/2018 15:45:13 07/14/20 18 07/14/2018 urina lysis , dipst ick Nitrite negati ve Not Available [facility] [address] [place], [address], 07/14/2018 15:45:13 07/14/20 18 07/14/2018 urina lysis , dipst ick Urobilinogen .2 Not Available [facility] [address] [place], [address], 07/14/2018 15:45:13 07/14/20 18 07/14/2018 urina lysis , dipst ick Protein Negati ve Not Available [facility] [address] [place], [address], 07/14/2018 15:45:13 07/14/20 18 07/14/2018 urina lysis , dipst ick pH 6.5 Not Available [facility] [address] [facility], [place], [address], 07/14/2018 15:45:13 07/14/20 18 07/14/2018 urina lysis , dipst ick Blood Negati ve Not Available [facility] [address] [facility] [address], [place], [address], 07/14/2018 15:45:13 07/14/20 18 07/14/2018 urina lysis , dipst ick Specific [place] 1.015 Not Available [facility] [address] [facility] [address], [place], [address], 07/14/2018 15:45:13 07/14/20 18 07/14/2018 urina lysis , dipst ick Ketone Negati ve Not Available [facility] [address] [facility] [address], [place], [address], 07/14/2018 15:45:13 07/14/20 18 07/14/2018 urina lysis , dipst ick Bilirubin Negati ve Not Available [facility] [address] [facility] [address], [place], [address], 07/14/2018 15:45:13 07/14/20 18 07/14/2018 urina lysis , dipst ick Glucose Negati ve Not Available [facility] [address] [facility] [address], [place], [address], 07/14/2018 15:45:13 07/14/20 18 07/14/2018 urina lysis , dipst ick Appearance Clear Not Available [facility] [address] [facility] [address], [place], [address], 07/14/2018 15:45:13 07/14/20 18 07/14/2018 urina lysis , dipst ick Color Pale Yellow Not Available [facility] [address] [facility] [address], [place], [address], 07/14/2018 15:45:13 07/13/2007/13/2019 urina lysis , dipst ick Leukocytes Negati ve Not Available [facility] [address] [facility] [address], [place], [address], 07/13/2019 09:41:37 07/13/2007/13/2019 urina lysis , dipst ick Nitrite negati ve Not Available [facility] [address] [facility] [address], [place], [address], 07/13/2019 09:41:37 07/13/2007/13/2019 urina lysis , dipst ick Urobilinogen .2 Not Available [facility] [address] [facility] [address], [place], [address], 07/13/2019 09:41:37 07/13/2007/13/2019 urina lysis , dipst ick Protein Negati ve Not Available [facility] [address] [facility] [address], [place], [address], 07/13/2019 09:41:37 07/13/2007/13/2019 urina lysis , dipst ick pH 7.0 Not Available [facility] [address] [facility] [address], [place], [address], 07/13/2019 09:41:37 07/13/2007/13/2019 urina lysis , dipst ick Blood Negati ve Not Available [facility] [address] [facility] [address], [place], [address], 07/13/2019 09:41:37 07/13/2007/13/2019 urina lysis , dipst ick Specific [place] 1.020 Not Available [facility] [address] [facility] [address], [place], [address], 07/13/2019 09:41:37 07/13/20 19 07/13/2019 urina lysis , dipst ick Ketone Negati ve Not Available [facility] [address] [facility] [address], [place], [address], 07/13/2019 09:41:37 07/13/20 19 07/13/2019 urina lysis , dipst ick Bilirubin Negati ve Not Available [facility] [address] [facility] [address] , [place], [address], 07/13/2019 09:41:37 07/13/20 19 07/13/2019 urina lysis , dipst ick Glucose Negati ve Not Available [facility] [address] [facility] [address] , [place], [address], 07/13/2019 09:41:37 07/13/20 19 07/13/2019 urina lysis , dipst ick Appearance Clear Not Available [facility] [address] [facility] [address] , [place], [address], 07/13/2019 09:41:37 07/13/20 19 07/13/2019 urina lysis , dipst ick Color Yellow Not Available [facility] [address] [facility] [address] , [place], [address], 07/13/2019 09:41:37 07/16/20 18 07/15/2018 XR, cervi quinn spine , 2 or 3 view No observ ation record ed. [facility] (Radiology) [address] [place], [address], 07/18/2018 09:21:40 07/16/20 18 07/15/2018 XR, shoul gurdeep No observ ation record ed. [facility] (Radiology) [address] [place], [address], 07/18/2018 09:21:40 09/02/19 19 09/02/2018 US, testi merle No observ ation record ed. [facility] [address] [facility], [place], [address], 04/27/2019 15:00:27 Result Notes None recorded. Problems Name Problem SNOMED Code Status Onset Date Resolution Date Notes Provider Name and Address Organization Details Recorded Time History of emphysem a 50660964872 043910 Active 2017 [facility]24 Frostbit e 834748519 Active 2017 left great toe Chiquita galloway [facility] 8 12:04:50 Mobitz type II atrioven tricular block 07331934 Active 2017 [facility] 8 12:05:26 Seasonal allergy 922542036 Active 2017 Melyssa Plummer NP, S [address] [place] [address], [address], [facility] 8 15:05:50 Problem Notes None recorded. Procedures Surgical History Date Name Laterality Status Provider Name and Address Organization Details Recorded Time 03/01/20 14 colonoscopy completed Melyssa Plummer NP, S [address] [place] [address], [address], [facility] 07/14/2018 15:11:36 08/19/18 68 operative procedure on knee completed [facility] [address], [address], [facility] 07/13/2019 10:12:06 08/19/18 67 Unlisted px hands/fingers completed [address], [address], [facility] 07/13/2019 10:12:31 Remove tonsils and adenoids completed [address], [address], [facility] 07/13/2019 10:12:44 repair of inguinal hernia completed [address], [place], [address], [facility] 07/13/2019 10:13:02 Imaging Results Imaging Date Name Status LastModified by Organiz ation Details LastModified Time 07/15/2018 XR, cervical spine, 2 or 3 view completed [facility] (Radiology) [address] [place], [address], 07/18/2018 09:21:40 07/15/2018 XR, shoulder completed [facility] (Radiology) [address] [place], [address], 07/18/2018 09:21:40 09/02/2018 US, testicle completed [email or web address] [facility] [address] [place], [address], 04/27/2019 15:00:27 Procedure Notes None recorded. Medical Equipment None Reported. Allergies Allergen ID Allergen Name Allergen Category Reaction Reaction Severity Criticality Documentation Date Start Date Code Code System Note Provider Name and Address Organization Details Recorded Time 1866 Substance with sulfonami de structure and antibacte rial mechanism of action (substanc e) medicatio n Not available Not available Not available 02/28/2018 68038 8003 SNGENESIS Plummer NP, S [address] [place], [address], [facility] 8 15:05:10 2701 meclizine medicatio n Not available Not available Not available 09/01/2018 6676 RxNorm Chiquita galloway, [facility] 9 11:02:37 Medications Name Sig [...] Updated DateTime 9 177.17 cm 24.9 kg/m2 55530.6 1 g 71 /min 98 % 98 % Chelita Menezes [facility] 9 09:44:16 Date Recorded Systolic blood pressure Diastolic blood pressure Provider Name and Address Organization Details Last Updated DateTime 07/13/2019 122 mm[Hg] 70 mm[Hg] November Charles [facility] [address] [place], [address], [facility] 07/13/2019 10:21:59 Date Recorded Body height Body mass index (BMI) Body weight Heart rate Oxygen saturation Oxygen saturation in Arterial blood by Pulse oximetry Systolic blood pressure Diastolic blood pressure Provider Name and Address Organization Details Last Updated DateTime 8 177.17 cm 24.8 kg/m2 94922.1 7 g 72 /min 98 % 98 % 120 mm[Hg] 74 mm[Hg] Chiquita Gallo [place] [facility] 8 15:00:35 Date Recorded Body height Body mass index (BMI) Body weight Oxygen saturation Oxygen saturation in Arterial blood by Pulse oximetry Heart rate Body temperature Systolic blood pressure Diastolic blood pressure Provider Name and Address Organization Details Last Updated DateTime 9 177.17 cm 25.6 kg/m2 87080.8 5 g 99 % 99 % 78 /min 98.1 [degF] 124 mm[Hg] 68 mm[Hg] Chiquitamaribeth Gallo [facility] 9 11:04:04 Date Recorded Body height Body mass index (BMI) Body weight Heart rate Oxygen saturation Oxygen saturation in Arterial blood by Pulse oximetry Systolic blood pressure Diastolic blood pressure Provider Name and Address Organization Details Last Updated DateTime 177.17 cm 24.7 kg/m2 76271.9 4 g 70 /min 99 % 99 % 130 mm[Hg] 76 mm[Hg] Chelita Riri [facility] 9 14:46:35 Date Recorded Body height Body mass index (BMI) Body weight Heart rate Oxygen saturation Oxygen saturation in Arterial blood by Pulse oximetry Systolic blood pressure Diastolic blood pressure Provider Name and Address Organization Details Last Updated DateTime 177.17 cm 24.6 kg/m2 39097.7 8 g 69 /min 98 % 98 % 110 mm[Hg] 80 mm[Hg] Chelita Menezes [facility] 9 14:16:22 Social History Question Answer Notes LastModified by Organizat ion Details LastModified Time Tobacco Smoking Status Never Smoker Chiquita Cleo galloway [facility] 07/14/2018 14:59:21 Do You Or [...] Diagnosis ICD10 Code [id number] Melyssa Plummer NP, [facility] [address] [place] [address],[place] [address] 02/28/2018 14:55:21 03/04/2018 08:06:35 On examination - rash present [id number] R21 [id number] Melyssa Plummer NP, [facility] [address] [place], [place] [address] [address] 07/14/2018 14:54:49 07/14/2018 15:46:20 Adult health examination 980555233 Z00.01 Screening for cardiovascular system disease 389077633 Z13.6 Pain in right arm 819665 004 M79.601 Atypical chest pain 1025 24159 R07.89 [id number] Melyssa Plummer NP, [facility] [address] [place] [address] 09/01/2018 10:52:36 09/01/2018 11:57:52 Pain in testicle 00996718 N50.819 [id number] November [facility] [address] [place] [address],[place] [address] 04/27/2019 14:38:55 04/27/2019 15:14:55 Pain in right lower limb 305503041 M79.604 [id number] November [facility] [address] [place] [address],[place] [address] 05/15/2019 14:07:20 05/15/2019 14:32:51 Pruritic rash 89261432 L28.2 Sciatica 74677434 M54.30 [id number] November SUE Soto [facility] [address] [facility],[place] [address] 07/13/2019 09:34:50 07/13/2019 10:27:49 Adult health examination 217398101 Z00.00 Active or passive immunization 737904803 Z23 Screening for cardiovascular system disease 897276097 Z13.6 Vitamin D deficiency 347 01654 E55.9 Cough 95646780 R05 Health Concerns Section Related Observation LastModified by Organization Detai ls LastModified Time None Recorded Concern Status LastModified by Organization Details LastModified Time None Recorded Advance Directives Directive None Recorded Payers Encounter Date Sequence Insurance Name Policy Number Policy Ramos Covered Member ID Ramos Member ID Guarantor Name 07/14/2018 1 [facility] (MEDICARE REPLACEMENT/A DVANTAGE - HMO) [id number] Forest Marks [id number] Forest Marks 09/01/2018 1 [facility] (MEDICARE REPLACEMENT/A DVANTAGE - HMO) [id number] Forest Marks [id number] Forest Marks 04/27/2019 1 [facility] (MEDICARE REPLACEMENT/A DVANTAGE - HMO) [id number] Forest Marks [id number] Forest Marks 05/15/2019 1 [facility] (MEDICARE REPLACEMENT/A DVANTAGE - HMO) [id number] Forest Marks [id number] Forest Marks 07/13/2019 1 [facility] (MEDICARE REPLACEMENT/A DVANTAGE - HMO) [id number] Forest Marks [id number] Forest Marks Notes Date Note Type Note Provider Name a oh Address Organization Details Recorded Time 8 text/html Medicare Annual Wellness VisitReported bypatient.Diet and [...] the past year; no fall since last visit;dizziness/vert igo; recent episode, resolved Home Safety:no unsafe stairs; [...] left chest pain without associated symptoms Melyssa Plummer, MARIE, S [address] [facility], [place], [address], [facility] 07/14/2018 16:35:01 9 text/html Hx: orchiditis Some recent ( 1 week ) on/off testicular discomfort ( 2 or 3 on pain scale ) More on left side No penile discharge, no rash No fever Denies back, abdominal pain, minimal suprapubic discomfort No hematuria, No BRBPR Melyssa Plummer, [employer], S [address] [place], [address], [facility] 09/01/2018 11:55:11 9 text/html c/o pain in the hamstring area for 1 week, but no injury, just woke up with some tension initially played 11 games of Ocision ball yesterday and also has tightness in [...] than when sitting longest drive was to [place], but the pain preceded this trip has [...] bleeding, sx of sinus/respiratory infection , headaches, dizziness/lightheade dness, rashes, or nail changes. SUE Finn [address] [place], [address], [facility] 04/27/2019 15:11:32 9 text/html rash right leg woke up with red spot a couple days [...] bleeding, sx of sinus/respiratory infection , headaches, dizziness/lightheade dness, rashes, or nail changes. Heydi SUE Soto [address] [place] [address], [address], [facility] 05/18/2019 13:40:00 9 text/html Medicare Annual Wellness VisitReported bypatient.Diet and [...] lighting in the home November SUE Soto [address] [place] [address], [address], [facility] 07/13/2019 10:27:14
--- NOTE | 2024-08-20 08:57 | MHC.PC.OV ---
Vital Signs 08/20/24 08:59 Height 5 ft 11 in Weight 165 lb BMI 23.0 BP 130/60 Blood Pressure Location Rt brachial Position Sitting Respiration 16 Pulse 68 Pulse Source Pulse Oximeter Pulse Oximetry (%) 98 Oxygen Delivery Method Room Air Intake Visit Reasons: xray referral Intake Note: pt is here for a x-ray for his back Allergies Sulfa (Sulfonamide Antibiotics) Allergy (Intermediate, Verified 08/20/24 08:58) Unknown Tobacco use date assessed: 12/02/23 HPI xray referral HPI Details 74 y/o male presents to f/u R thigh pain, numbness/tingling. Had referred him for physical therapy. Reports no improvement with physical therapy. [facility] Medical History Stroke Inguinal hernia Surgical History Hx of inguinal hernia surgery History of knee surgery History of hand surgery Family History Mother Cancer Father Cardiovascular disease Social History Household Members: None Housing: Other Housing Other:: Mobile home 75 years or older and lives alone: No Alcohol intake: current Alcohol intake frequency: a few times a week Alcohol type: wine Patient Tobacco Use Status: Never used Tobacco e-Cigarette/Vaping Use: Never Used service: No Current occupational status: retired Current occupational exposures/hazards: No Cognitive needs: No Hearing needs: No Vision needs: No Questionnaire PHQ-9 Over the last 2 weeks, how often have you been bothered by any of the following problems? 1. Little interest or pleasure in doing things: not at all 2. Feeling down, depressed, or hopeless: not at all 3. Trouble falling or staying asleep, or sleeping too much: not at all 4. Feeling tired or having little energy: not at all 5. Poor appetite or overeating: not at all 6. Feeling bad about yourself - or that you are a failure or have let yourself or your family down: not at all 7. Trouble concentrating on things, such as reading the newspaper or watching television: not at all 8. Moving or speaking so slowly that other people could have noticed. Or the opposite - being so fidgety or restless that you have been moving around a lot more than usual: several days 9. Thoughts that you would be better off or of hurting yourself in some way: not at all Total score: 1 Source: Developed by Drs. Derrick Garcia, Sirena Whitlock, Moo Lynn and colleagues, with an educational maycol from [employer]. Thrive Questionnaire Date Thrive assessed: 10/18/23 I am a: Patient What is your living situation today?: I have a steady place to live Within the past 12 months, did the food you bought not last and you didn't have the money to get more?: Never true Within the past 12 months, did you worry whether your food would run out before you got money to buy more?: Never true Do you have trouble paying for medicines?: No Do you have trouble getting transportation to medical appointments?: No Do you have trouble paying your heating and electricity bill?: No Do you have trouble taking care of your child, family member or friend?: No Do you have trouble with day-to-day activities such as bathing, preparing meals, shopping, managing finances, etc.?: No Are you currently unemployed and looking for a job?: I choose not to answer this question Are you interested in more education?: I choose not to answer this question Please select the resources that you would like help with: Utilities Currently or been in a relationship where the following occur: No concerns reported THRIVE Score: 0 AUDIT C Alcohol Use Questionnaire (AUDIT-C) 1. How often do you have a drink containing alcohol?: Monthly or less 2. How many drinks containing alcohol do you have on a typical day when you are drinking?: 1 or 2 3. How often do you have six or more drinks on one occasion?: Never Total Score: 1 AAMIR-7 AMB Questionnaire AAMIR-7 Date AAMIR - 7 assessed: 01/31/24 Feeling nervous, anxious, or on edge: 1 = Several days Not being able to stop or control worryin = Not at all Worrying too much about different things: 0 = Not at all Trouble relaxin = More than half the days Being so restless that it is hard to sit still: 1 = Several days Becoming easily annoyed or irritable: 0 = Not at all Feeling afraid as if something awful might happen: 0 = Not at all Total AAMIR-7 score (0-4 normal; 5-9 mild; 10-14 moderate; 15-21 severe): 4 Source: Developed by Drs. Derrick Garcia, Sirena Whitlock, Moo Lynn and colleagues, with an educational maycol from [employer]. Review of Systems Const Denies chills, Denies fatigue, Denies fever(s), Denies headache(s) and Denies weakness ENT Denies dizziness and Denies headache(s) Card Denies dyspnea Resp Denies cough, Denies dyspnea, Denies wheezing and Denies other (shortness of breath) Musc Denies numbness and Denies tingling Neuro Denies dizziness, Denies headache(s), Denies numbness, Denies tingling and Denies weakness Psych Denies anxiety and Denies depression Endo Denies fatigue Aller/Immun Denies wheezing Physical exam (Primary Care) Vital Signs: Last Vital Signs Pulse 68 08/20/24 08:59 Resp 16 08/20/24 08:59 BP 130/60 08/20/24 08:59 Pulse Ox 98 08/20/24 08:59 Oxygen Delivery Method Room Air 08/20/24 08:59 BMI result Body Mass Index 23.0 Tobacco/Smoking Status: Tobacco use Status Tobacco use date assessed 12/02/23 08/20/24 08:57 Patient Tobacco Use Status Never used Tobacco 08/20/24 08:57 e-Cigarette/Vaping Use Never Used 08/20/24 08:57 PHQ-9: PHQ-9 Score PHQ-9: Total score 1 08/20/24 09:06 Thrive Assessment: Date of Thrive Assessment Date Thrive assessed 10/18/23 08/20/24 08:57 Currently or been in a relationship where the following occur: No concerns reported Const General: well developed; No acute distress Nutritional Appearance: well nourished Orientation/consciousness: patient oriented x3 HENMT Head: Yes normocephalic and Yes atraumatic Eyes General: appearance normal, both eyes and all related structures Pupils: Equal, round and reactive pupils present EOM: EOMs intact bilaterally Resp Effort & Inspection: normal respiratory effort Neuro General: patient oriented x3 and gait normal Cranial nerves: Yes Equal, round and reactive pupils present Psych Affect: normal affect Coding Level of Care Code Est Pt Level 3 (28144) Diagnoses Lumbar radiculopathy M54.16 Right thigh pain M79.651 Assessment & Plan Assessment & Plan (1) Lumbar radiculopathy: Code(s): M54.16 - Radiculopathy, lumbar region Category: Medical Plan: Ongoing?lumbar?radicular?pain?radiating?in?to?right?hip Patient?denies?that?physical?therapy?helped?much. He?notes?that?applying?cold?to?his?back?improves?his?symptoms.??He?notes?leave?improves?his?symptoms?being?does?not?want?take?medication?on?regular?basis. Will?give?him?a?short?course?of?prednisone. He?will?use?cold?packs?gentle?stretching.??Support?legs?while?sleeping. Referred?to?new?[facility] Will?check?x-rays?of?lumbar?spine?and?right?hip?pelvis. Will?discuss?results?with?patient?a?few?weeks. (2) Right thigh pain: Code(s): M79.651 - Pain in right thigh Category: Medical Plan: As?above Orders: Orders XR hip RT min 2V w/wo pel Today M79.651 - Pain in right thigh XR lumbar spine 2-3V Today M54.16 - Radiculopathy, lumbar region Referrals Orthopedics Referral M54.16 - Radiculopathy, lumbar region, M79.651 - Pain in right thigh Medications: New prednisone 40 mg (2 x 20 mg) PO DAILY 4 days 8 tabs 0RF
[2024-08-20 08:59] VITALS: BP 130/60; PULSE 68; RESP 16; O2SAT 98; BMI 23.0
== END 2024-08-20 09:29 | disposition home or self-care (01) ==
PROVIDERS: PCP Nurse Practitioner Family; Visit Provider Family Medicine
DX: M54.16 Radiculopathy, lumbar region (principal); M79.651 Pain in right thigh

== ENCOUNTER 2024-08-24 10:13 | Outpatient (REF) | payer MEDICARE, SELFPAY ==
--- NOTE | ~2024-08-24 | XR_ITS ---
EXAMINATION: Right hip x-ray. CLINICAL INFORMATION: Pain in the right thigh. TECHNIQUE: AP and oblique views]. 2 views. COMPARISON: No priors. FINDINGS: No acute cortical disruption or malalignment. No lytic or blastic lesions. Degenerative changes in the coxofemoral joint and sacroiliac joint. 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 Electronically signed by: Amilcar Hennessy MD 08/24/2024 10:48 AM DELORIS POMPA
--- NOTE | ~2024-08-24 | XR_ITS ---
EXAMINATION: XR LUMBOSACRAL SPINE CLINICAL INFORMATION: M54.16 - Radiculopathy, lumbar region COMPARISON: None available. TECHNIQUE: Three views of the lumbosacral spine. FINDINGS: Dextroconvex curvature of the lumbar spine apex at L3. Multilevel marginal osteophyte formation and endplate sclerosis and decreased intervertebral disc height throughout the included lower thoracic and the lumbar spine. No acute cortical disruption. Grade 1 retrolisthesis at L2-3. Vascular calcifications. Abundant stool. No lytic or blastic lesions. XR/XR lumbar spine 2-3V IMPRESSION: Multilevel thoracolumbar spondylosis and dextroconvex rotoscoliosis without acute fracture. Electronically signed by: Amilcar Hennessy MD 08/24/2024 10:50 AM DELORIS
--- OUTSIDE RECORDS SUMMARY | 2024-08-24 11:17 | XMS_ITS | Data Portability ---
Author Organization [facility] Home Service Address [address] [place] [address] Assessment Encounter Date Assessment Date Assessment LastModified [...] 2017 018 [facility], [address] [facility], [address], [place], [address], 8 16:34:24 CBC w/ auto diff 2018 019 [facility], [address] [facility], [address], [place], [address], 9 08:25:27 culture, urine 2018 019 [facility], [address] [place] [address], [address], [place], [address], 9 08:25:27 erythrocy te sedimenta tion rate by westergre n method 2018 [facility], [address] [place] [address], [address], [place], [address], 9 08:25:27 vitamin D, 25-hydrox y, total, serum 2018 RENEE Not available 9 08:16:28 lipid panel, blood 2018 RENEE Not available 9 08:16:28 urinalysi s, dipstick 2018 abelanger 7 [facility], [address] [place] [address], [address], [place], [address], 9 10:22:21 CBC w/ auto diff 2018 RENEE Not available 9 08:16:28 CMP, serum or plasma 2018 RENEE Not available 9 08:16:27 hepatitis C Ab, serum 2018 abelanger 7 Not available 9 10:22:21 PSA, serum or plasma 2018 RENEE Not available 9 08:16:28 Referral physical therapist referral 2018 019 [facility], [address] [place], [address], 9 09:59:04 Procedures None recorded. Surgeries None recorded. Imaging XR, shoulder 2017 RENEE Not available 8 08:44:48 XR, cervical spine, 2 or 3 view 2017 018 RENEE Not available 8 08:44:48 US, testicle 2018 RENEE Not available 9 23:52:57 Medication Orders Medrol (Js) 4 mg tablets in a dose pack 2017 018 [email or web address] [facility] [place], [address] [place], [address], 9 11:02:41 doxycycli ne hyclate 100 mg tablet 2018 019 sbjuan pabloo [facility] [place], [address] [place], [address], 9 14:45:15 triamcino lone acetonide 0.1 % topical cream 2018 019 sbjuanp abloo [facility] [place], [address] [place], [address], 9 09:40:50 Patient TargetsNo targets recorded. Patient Instructions Encounter Date Encounter Id Patient Instructions Last Modified By Organization Details Last Modified Time 07/14/2018 [id number] rhythm strip, EKG* [email or web address] Not available 07/21/2018 08:10:08 Discussed and explained advance directives such as standard forms to the {{patient caregiv er patient and caregiver}}. Face to face discussion lasted for a duration of ___ minutes. [email or web address] Not available 07/14/2018 14:56:29 09/01/2018 [id number] Call if any increased symptoms eskawski Not available 09/01/2018 11:54:56 05/15/2019 [id number] sciatica: care instructions Not available 05/15/2019 14:30:34 07/13/2019 [id number] advance care planning: care instructions Not available [...] dipst ick Leukocytes Negati ve Not Available [facility] [address], [address], 07/14/2018 15:45:13 07/14/20 18 07/14/2018 urina lysis , dipst ick Nitrite negati ve Not Available [facility] [address] [place], [address], 07/14/2018 15:45:13 07/14/20 18 07/14/2018 urina lysis , dipst ick Urobilinogen .2 Not Available [facility] [address] [place], [address], 07/14/2018 15:45:13 07/14/20 18 07/14/2018 urina lysis , dipst ick Protein Negati ve Not Available [facility] [address] [place], [address], 07/14/2018 15:45:13 07/14/20 18 07/14/2018 urina lysis , dipst ick pH 6.5 Not Available [facility] [address] [facility], [place], [address], 07/14/2018 15:45:13 07/14/20 18 07/14/2018 urina lysis , dipst ick Blood Negati ve Not Available [facility] [address] [facility] [address], [place], [address], 07/14/2018 15:45:13 07/14/20 18 07/14/2018 urina lysis , dipst ick Specific Lignite 1.015 Not Available [facility] [address] [facility] [address], [place], [address], 07/14/2018 15:45:13 07/14/20 18 07/14/2018 urina lysis , dipst ick Ketone Negati ve Not Available [facility] [address] [facility] [address], [place], [address], 07/14/2018 15:45:13 07/14/20 18 07/14/2018 urina lysis , dipst ick Bilirubin Negati ve Not Available [facility] [address] [facility] [address], [place], [address], 07/14/2018 15:45:13 07/14/20 18 07/14/2018 urina lysis , dipst ick Glucose Negati ve Not Available [facility] [address] [facility] [address], [place], [address], 07/14/2018 15:45:13 07/14/20 18 07/14/2018 urina lysis , dipst ick Appearance Clear Not Available [facility] [address] [facility] [address], [place], [address], 07/14/2018 15:45:13 07/14/20 18 07/14/2018 urina lysis , dipst ick Color Pale Yellow Not Available [facility] [address] [facility] [address], [place], [address], 07/14/2018 15:45:13 07/13/2007/13/2019 urina lysis , dipst ick Leukocytes Negati ve Not Available [facility] [address] [facility] [address], [place], [address], 07/13/2019 09:41:37 07/13/2007/13/2019 urina lysis , dipst ick Nitrite negati ve Not Available [facility] [address] [facility] [address], [place], [address], 07/13/2019 09:41:37 07/13/2007/13/2019 urina lysis , dipst ick Urobilinogen .2 Not Available [facility] [address], [place], [address], 07/13/2019 09:41:37 07/13/2007/13/2019 urina lysis , dipst ick Protein Negati ve Not Available [facility] [address] [facility] [address], [place], [address], 07/13/2019 09:41:37 07/13/2007/13/2019 urina lysis , dipst ick pH 7.0 Not Available [facility] [address] [facility] [address], [place], [address], 07/13/2019 09:41:37 07/13/2007/13/2019 urina lysis , dipst ick Blood Negati ve Not Available [facility] [address] [facility] [address], [place], [address], 07/13/2019 09:41:37 07/13/2007/13/2019 urina lysis , dipst ick Specific Lignite 1.020 Not Available [facility] [address] [facility] [address], [place], [address], 07/13/2019 09:41:37 07/13/20 19 07/13/2019 urina lysis , dipst ick Ketone Negati ve Not Available [facility] [address] [facility] [address], [place], [address], 07/13/2019 09:41:37 07/13/20 19 07/13/2019 urina lysis , dipst ick Bilirubin Negati ve Not Available [facility] [address] [facility] [address] , [place], [address], 07/13/2019 09:41:37 07/13/20 19 07/13/2019 urina lysis , dipst ick Glucose Negati ve Not Available [facility] [address] [facility] [address] , [place], [address], 07/13/2019 09:41:37 07/13/20 19 07/13/2019 urina lysis , dipst ick Appearance Clear Not Available [facility] [address] [facility] [address] , [place], [address], 07/13/2019 09:41:37 07/13/20 19 07/13/2019 urina lysis , dipst ick Color Yellow Not Available [facility] [address] [facility] [address] , [place], [address], 07/13/2019 09:41:37 07/16/20 18 07/15/2018 XR, cervi quinn spine , 2 or 3 view No observ ation record ed. [facility] (Radiology) [address] [place], [address], 07/18/2018 09:21:40 07/16/20 18 07/15/2018 XR, shoul gurdeep No observ ation record ed. [facility] (Radiology) [address] [place], [address], 07/18/2018 09:21:40 09/02/19 19 09/02/2018 US, testi merle No observ ation record ed. [facility] [address] [facility], [place], [address], 04/27/2019 15:00:27 Result Notes None recorded. Problems Name Problem SNOMED Code Status Onset Date Resolution Date Notes Provider Name and Address Organization Details Recorded Time History of emphysem a 87996323359 451641 Active 2017 [facility] 12:[facility]24 Frostbit e 240179737 Active 2017 left great toe Chiquita galloway [facility] 8 12:04:50 Mobitz type II atrioven tricular block 97341536 Active 2017 [facility] 8 12:05:26 Seasonal allergy 222269471 Active 2017 Melyssa Plummer NP, S [address] [place] [address], [address], [facility] 8 15:05:50 Problem Notes None recorded. Procedures Surgical History Date Name Laterality Status Provider Name and Address Organization Details Recorded Time 03/01/20 14 colonoscopy completed Melyssa Plummer NP, S [address] [place] [address], [address], [facility] 07/14/2018 15:11:36 08/19/18 68 operative procedure on knee completed [facility] [address], [address], [facility] 07/13/2019 10:12:06 08/19/18 67 Unlisted px hands/fingers completed [address], [address], [facility] 07/13/2019 10:12:31 Remove tonsils and adenoids completed [address], [address], [facility] 07/13/2019 10:12:44 repair of inguinal hernia completed [address], [place], [address], [facility] 07/13/2019 10:13:02 Imaging Results Imaging Date Name Status LastModified by Organiz ation Details LastModified Time 07/15/2018 XR, cervical spine, [address] [facility] (Radiology) [address] [place], [address], 07/18/2018 09:21:40 07/15/2018 XR, shoulder completed [facility] (Radiology) [address] [place], [address], 07/18/2018 09:21:40 09/02/2018 US, testicle completed [email or web address] [facility] [address] [place], [address], 04/27/2019 15:00:27 Procedure Notes None recorded. Medical Equipment None Reported. Allergies Allergen ID Allergen Name Allergen Category Reaction Reaction Severity Criticality Documentation Date Start Date Code Code System Note Provider Name and Address Organization Details Recorded Time 1866 Substance with sulfonami de structure and antibacte rial mechanism of action (substanc e) medicatio n Not available Not available Not available 02/28/2018 63237 8003 SNGENESIS Plummer NP, S [address] [place], [address], [facility] 8 15:05:10 2701 meclizine medicatio n Not available Not available Not available 09/01/2018 6676 RxNorm Chiquita galloway, [facility] 9 11:02:37 Medications Name Sig [...] Updated DateTime 9 177.17 cm 24.9 kg/m2 82131.6 1 g 71 /min 98 % 98 % Chelita Menezes [facility] 9 09:44:16 Date Recorded Systolic blood pressure Diastolic blood pressure Provider Name and Address Organization Details Last Updated DateTime 07/13/2019 122 mm[Hg] 70 mm[Hg] November [facility] [address] [place], [address], [facility] 07/13/2019 10:21:59 Date Recorded Body height Body mass index (BMI) Body weight Heart rate Oxygen saturation Oxygen saturation in Arterial blood by Pulse oximetry Systolic blood pressure Diastolic blood pressure Provider Name and Address Organization Details Last Updated DateTime 8 177.17 cm 24.8 kg/m2 90062.1 7 g 72 /min 98 % 98 % 120 mm[Hg] 74 mm[Hg] Chiquita Gallo [place] [facility] 8 15:00:35 Date Recorded Body height Body mass index (BMI) Body weight Oxygen saturation Oxygen saturation in Arterial blood by Pulse oximetry Heart rate Body temperature Systolic blood pressure Diastolic blood pressure Provider Name and Address Organization Details Last Updated DateTime 9 177.17 cm 25.6 kg/m2 36162.8 5 g 99 % 99 % 78 /min 98.1 [degF] 124 mm[Hg] 68 mm[Hg] Chiquitamaribeth Gallo [facility] 9 11:04:04 Date Recorded Body height Body mass index (BMI) Body weight Heart rate Oxygen saturation Oxygen saturation in Arterial blood by Pulse oximetry Systolic blood pressure Diastolic blood pressure Provider Name and Address Organization Details Last Updated DateTime 177.17 cm 24.7 kg/m2 81864.9 4 g 70 /min 99 % 99 % 130 mm[Hg] 76 mm[Hg] Chelita Riri [facility] 9 14:46:35 Date Recorded Body height Body mass index (BMI) Body weight Heart rate Oxygen saturation Oxygen saturation in Arterial blood by Pulse oximetry Systolic blood pressure Diastolic blood pressure Provider Name and Address Organization Details Last Updated DateTime 177.17 cm 24.6 kg/m2 12960.7 8 g 69 /min 98 % 98 % 110 mm[Hg] 80 mm[Hg] Chelita Menezes [facility] 9 14:16:22 Social History Question Answer Notes LastModified by Organizat ion Details LastModified Time Tobacco Smoking Status Never Smoker Chiquita Cleo galloway [facility] 07/14/2018 14:59:21 Do You Or [...] Diagnosis/Indication Diagnosis SNOMED-CT Code Diagnosis ICD10 Code Diagnosis Note [id number] Melyssa Plummer NP, [facility] [address] [place] [address] [place] [address] 02/28/2018 14:55:21 03/04/2018 08:06:35 On examination - rash present 028869770 R21 [id number] Melyssa Plummer NP, [facility] [address] [place] [address] 07/14/2018 14:54:49 07/14/2018 15:46:20 Adult health examination 619866189 Z00.01 Screening for cardiovascular system disease 154904613 Z13.6 Pain in right arm 278762 004 M79.601 Atypical chest pain 1025 46291 R07.89 [id number] Melyssa Plummer NP, [address] [place] [address] 09/01/2018 10:52:36 09/01/2018 11:57:52 Pain in testicle 94339501 N50.819 [id number] [facility] [address] [place] [address] 04/27/2019 14:38:55 04/27/2019 15:14:55 Pain in right lower limb 747517929 M79.604 ? nerve impingemen t dvt very unlikely ibuprofen 800 mg tid prn has old oxycodone which is ok to take if in extreme pain [id number] November [facility] [address] [facility] [address] 05/15/2019 14:07:20 05/15/2019 14:32:51 Pruritic rash 56647403 L28.2 Sciatica 86316051 M54.[place] [id number] November SUE Soto [facility] [address] [facility] [address] 07/13/2019 09:34:50 07/13/2019 10:27:49 Adult health examination 910806782 Z00.00 HCP - sister - debbi mora Active or passive immunization 233994910 Z23 refuses flu shot ama Screening for cardiovascular system disease 958579928 Z13.6 Vitamin D deficiency 347 85131 E55.9 Cough 85448383 R05 has dry/troat clearing habit - just feels more like a habit doesn't feel thirsty doesn't feel an itching in throat denies post nasal drip denies hoarseness denies heartburn doesn't seem to be related to underlying pathology will monitor for change Health Concerns Section Related Observation LastModified by Organization Detai ls LastModified Time None Recorded Concern Status LastModified by Organization Details LastModified Time None Recorded Advance Directives Directive None Recorded Payers Encounter Date Sequence Insurance Name Policy Number Policy Ramos Covered Member ID Ramos Member ID Guarantor Name 07/14/2018 1 [facility] (MEDICARE REPLACEMENT/A DVANTAGE - HMO) [id number] [employer] [id number] [employer] 09/01/2018 1 [facility] (MEDICARE REPLACEMENT/A DVANTAGE - HMO) [id number] [employer] Marks [id number] Forest Marks 04/27/2019 1 [facility] (MEDICARE REPLACEMENT/A DVANTAGE - HMO) [id number] Forest Marks [id number] Forest Marks 05/15/2019 1 [facility] (MEDICARE REPLACEMENT/A DVANTAGE - HMO) [id number] Forest Marks [id number] Forest Marks 07/13/2019 1 [facility] (MEDICARE REPLACEMENT/A DVANTAGE - HMO) [id number] Forest Marks [id number] Forest [employer] Notes Date Note Type Note Provider Name a nd Address Organization Details Recorded Time 8 text/html [...] without associated symptoms Melyssa Plummer NP, S [address] [place], [address], [facility] 07/14/2018 16:35:01 9 text/html Hx: orchiditis Some recent ( 1 week ) on/off testicular discomfort ( 2 or 3 on pain scale ) More on left side No penile discharge, no rash No fever Denies back, abdominal pain, minimal suprapubic discomfort No hematuria, No BRBPR Melyssa Plummer NP, S [address] [place], [address], [facility] 09/01/2018 11:55:11 9 text/html c/o pain in the hamstring area for 1 week, but no injury, just woke up with some tension initially played 11 games of [employer] ball yesterday and also has tightness in [...] than when sitting longest drive was to [place], but the pain preceded this trip has [...] rashes, or nail changes. SUE Finn [address] [place], [address], [facility] 04/27/2019 15:11:32 9 text/html rash [...] rashes, or nail changes. SUE Finn [address] [place], [address], [facility] 05/18/2019 13:40:00 9 text/html Medicare [...] the bathroom/shower; good lighting in the home SUE Finn [address] [place] [address], [address], [facility] 07/13/2019 10:27:14
== END 2024-08-24 10:14 | disposition home or self-care (01) ==
LOC: HO.XRAY 10:13
PROVIDERS: PCP Family Medicine; Visit Provider Family Medicine
DX: M79.651 Pain in right thigh (principal); M54.16 Radiculopathy, lumbar region
CPT/HCPCS: 72100; 73502

== ENCOUNTER → 2024-08-24 10:18 | Outpatient (BNV) | payer MEDICARE, SELFPAY | PROVIDERS: PCP Family Medicine; Visit Provider Radiology Diagnostic Radiology | DX: M16.11 Unilateral primary osteoarthritis, right hip (principal); M47.895 Other spondylosis, thoracolumbar region | CPT/HCPCS: 72100; 73502 ==

== ENCOUNTER 2024-09-03 09:41 | Outpatient (AMB) | payer MEDICARE, SELFPAY ==
--- NOTE | 2024-09-03 09:54 | A.OFFPC_ITS ---
Vital Signs 09/03/24 09:56 Height 5 ft 11 in Weight 167 lb BMI 23.3 BP 130/60 Blood Pressure Location Rt brachial Position Sitting Respiration 14 Pulse 65 Pulse Source Pulse Oximeter Temp 97.4 F Temp Source Oral Pulse Oximetry (%) 99 Oxygen Delivery Method Room Air Intake Visit Reasons: f/u R leg pain, back pain Intake Note: f/u rt leg pain and back pain Allergies Sulfa (Sulfonamide Antibiotics) Allergy (Intermediate, Verified 09/03/24 09:55) Unknown Tobacco use date assessed: 12/02/23 HPI f/u R leg pain, back pain HPI Details 74 y/o male presents to f/u lumbar radic ulopathy and referred pain to R hip thigh. Had ordered x-rays. Gave him a short course of prednisone. Had referred him to [facility]. Lumbar spine x-ray 08/24/24 shows multilevel thoracolumbar spondylosis and dextroconvex rotoscoliosis without acute fracture. Notes pain has improved a bit in the morning. HPI Comments History of Present Illness Details Documentation assistance for Josue Ren MD, was provided by Angelo Dong,? Machine Rebuilder on 09/03/2024 at 10:23AM EST. I, Dr. Ren, have read, observed, and verified documentation. ?? PFSH Medical History Stroke Inguinal hernia Surgical History Hx of inguinal hernia surgery History of knee surgery History of hand surgery Family History Mother Cancer Father Cardiovascular disease Social History Household Members: None Housing: Other Housing Other:: Mobile home 75 years or older and lives alone: No Alcohol intake: current Alcohol intake frequency: a few times a week Alcohol type: wine Patient Tobacco Use Status: Never used Tobacco e-Cigarette/Vaping Use: Never Used service: No Current occupational status: retired Current occupational exposures/hazards: No Cognitive needs: No Hearing needs: No Vision needs: No Questionnaire Thrive Questionnaire Date Thrive assessed: 08/20/24 I am a: Patient What is your living situation today?: I have a steady place to live Within the past 12 months, did the food you bought not last and you didn't have the money to get more?: Never true Within the past 12 months, did you worry whether your food would run out before you got money to buy more?: Never true Do you have trouble paying for medicines?: No Do you have trouble getting transportation to medical appointments?: No Do you have trouble paying your heating and electricity bill?: No Do you have trouble taking care of your child, family member or friend?: No Do you have trouble with day-to-day activities such as bathing, preparing meals, shopping, managing finances, etc.?: No Are you currently unemployed and looking for a job?: I choose not to answer this question Are you interested in more education?: I choose not to answer this question Please select the resources that you would like help with: Utilities Currently or been in a relationship where the following occur: No concerns reported THRIVE Score: 0 AAMIR-7 AMB Questionnaire AAMIR-7 Date AAMIR - 7 assessed: 01/31/24 Source: Developed by Drs. Derrick Garcia, Sirena Whitlock, Moo Lynn and colleagues, with an educational maycol from [employer]. Review of Systems Const Denies chills, Denies fatigue, Denies fever(s), Denies headache(s) and Denies weakness ENT Denies dizziness and Denies headache(s) Card Denies dyspnea Resp Denies cough, Denies dyspnea, Denies wheezing and Denies other (shortness of breath) Musc Reports back pain, Denies numbness and Denies tingling Neuro Denies dizziness, Denies headache(s), Denies numbness, Denies tingling and Denies weakness Psych Denies anxiety and Denies depression Endo Denies fatigue Aller/Immun Denies wheezing Physical exam (Primary Care) Vital Signs: Last Vital Signs Temp 97.4 F 09/03/24 09:56 Pulse 65 09/03/24 09:56 Resp 14 09/03/24 09:56 BP 130/60 09/03/24 09:56 Pulse Ox 99 09/03/24 09:56 Oxygen Delivery Method Room Air 09/03/24 09:56 BMI result Body Mass Index 23.3 Tobacco/Smoking Status: Tobacco use Status Tobacco use date assessed 12/02/23 09/03/24 10:01 Patient Tobacco Use Status Never used Tobacco 09/03/24 10:01 e-Cigarette/Vaping Use Never Used 09/03/24 10:01 Thrive Assessment: Date of Thrive Assessment Date Thrive assessed 08/20/24 09/03/24 10:01 Currently or been in a relationship where the following occur: No concerns reported Const General: well developed; No acute distress Nutritional Appearance: well nourished Orientation/consciousness: patient oriented x3 HENMT Head: Yes normocephalic and Yes atraumatic Eyes General: appearance normal, both eyes and all related structures Pupils: Equal, round and reactive pupils present EOM: EOMs intact bilaterally Resp Effort & Inspection: normal respiratory effort Neuro General: patient oriented x3 and gait normal Cranial nerves: Yes Equal, round and reactive pupils present Psych Affect: normal affect Coding Level of Care Code Est Pt Level 3 (02639) Diagnoses Right thigh pain M79.651 Lumbar radiculopathy M54.16 Meralgia paresthetica, right lower limb G57.11 Assessment & Plan Assessment & Plan (1) Right thigh pain: Code(s): M79.651 - Pain in right thigh Category: Medical Plan: Right?hip?and?thigh?pain. X-ray?shows?some?spondylosis?and?also?a?rotoscoliosis May?have?referred/radicular?pain?from?the?above. May?be?secondary?to?a?meralgia?paresthetica?with?a?locations?impingement?closer? to?anterior?superior?iliac?spine Thi s?may?be?amenable?to?physical?therapy?and?patient?was?agreeable?to?beginning?thi s. He?does?not?feel?that?the?short?course?of?steroid?helped?although?he?does?say?th at?he?is?feeling?better. He?will?try? diclofenac?gel?and?he?says?that?ice?improves?his?pain?and?makes?worse. Had?referred?him?to?Ortho?and?he?will?decide?if?he?wants?to?pursue?that?after?tr china?physical?therapy?and?diclofenac (2) Lumbar radiculopathy: Code(s): M54.16 - Radiculopathy, lumbar region Category: Medical Plan: As?above (3) Meralgia paresthetica, right lower limb: Code(s): G57.11 - Meralgia paresthetica, right lower limb Category: Medical Plan: As?above Orders: Orders PT Evaluation and Treatment Today G57.11 - Meralgia paresthetica, right lower limb, R20.2 - Paresthesia of skin Medications: New diclofenac sodium 1% (Arthritis Pain (diclofenac)) 4 grams topical BID 200 grams 2RF 30 days
[2024-09-03 09:56] VITALS: BP 130/60; PULSE 65; RESP 14; TEMP 36.3; O2SAT 99; BMI 23.3
== END 2024-09-03 10:33 | disposition home or self-care (01) ==
PROVIDERS: PCP Family Medicine; Visit Provider Family Medicine
DX: G57.11 Meralgia paresthetica, right lower limb (principal)

== ENCOUNTER → 2024-09-03 09:41 | Outpatient (BNVA) | payer MEDICARE, SELFPAY | PROVIDERS: PCP Nurse Practitioner Family; Visit Provider Family Medicine | DX: M79.651 Pain in right thigh (principal); M54.16 Radiculopathy, lumbar region; G57.11 Meralgia paresthetica, right lower limb | CPT/HCPCS: 99212 ==

== ENCOUNTER 2024-11-16 12:04 | Outpatient (REF) | payer MEDICARE, SELFPAY ==
--- OUTSIDE RECORDS SUMMARY | 2024-11-16 13:46 | XMS_ITS | Encounter Summary ---
Author Organization [employer] Address [address] [place] [address] Care Team Providers Care Rn Surgery Name Role Phone Unavailable Primary Care Provider Unavailabl e Encounter Details Date Type Department Care Team (Latest Contact Info) Description 08/23/2022 Abstract Social History Tobacco Use Types Packs/Day Years Used Date Smoking Tobacco: Never Smokeless Tobacco: Never Sex and Gender Information Value Date Recorded Sex Assigned at Male 06/18/2022 10:24 AM EDT Legal Sex Male 10:24 AM EDT Gender Identity Male 06/18/2022 10:24 AM EDT Sexual Orientation Choose not to disclose 2021 10:24 AM EDT COVID-19 Exposure Response Date Recorded In the last 10 days, have yo u been in contact with someone who was confirmed or suspected to have Coronavirus/COVID-19? No / Unsure 08/23/2022 2:29 PM EST documented as of this encounter Plan of Treatment Upcoming Encounters Date Type Department Care Team (Late st Contact Info) Description 03/29/2025 9:00 AM EDT Office Visit [facility] [address] [place], [place] [phone] Jolene Hope [address] [place], [place] [phone] documented as of this encounter Visit Diagnoses Not on filedocumented in this encounter
--- OUTSIDE RECORDS SUMMARY | 2024-11-16 13:46 | XMS_ITS | Clinical Summary ---
Author Organization [employer] Address [address] [place] [address] [address] [place] [address] Care Team Providers Care Restaurant Supervisor Name Role Phone Unavailable Primary Care Provider Unavailabl e Allergies Active Allergy Reactions Criticality Noted Date Comments Sulfa Antibiotics Unknown 07/08/2017 Medications No known medications Encounters Date Type Department Care Team Description 09/08/2024 9:00 AM EST Office Visit [facility] [address] [place] [address] [phone] Jolnee Hope from Last 3 Months Social History Tobacco Use Types Packs/Day Years Used Date Smoking Tobacco: Never Smokeless Tobacco: Never Tobacco Cessation:Counseling Given: Not Answered Sex and Gender Information Value Date Recorded Sex Assigned at Male 06/18/2022 10:24 AM EDT Legal Sex Male 10:24 AM EDT Gender Identity Male 06/18/2022 10:24 AM EDT Sexual Orientation Choose not to disclose 2021 10:24 AM EDT Last Filed Vital Signs Vital Sign Reading Time Taken Comments Blood Pressure 134/60 09/08/2024 9:13 AM EST Pulse 68 09/08/2024 9:13 AM EST Temperature - - Respiratory Rate - - Oxygen Saturation - - Inhaled Oxygen Concentration - - Weight - - Height - - Body Mass Index - - Plan of Treatment Upcoming Encounters Date Type Department Care Team (Late st Contact Info) Description 03/29/2025 9:00 AM EDT Office Visit [facility] [address] [place] [address] [phone] Jolene Hope [address] [place], [place] [phone] Health Maintenance Due Date Last Done Comments CT Colonography 1949 Colonoscopy 1949 Colorectal Cancer Screening 1949 Depression Screening 1949 FIT DNA/Cologuard 1949 FIT 1949 FOBT 1949 Lipid Panel 1949 SDOH Screening 1949 Sigmoidoscopy 1949 Alcohol/Substance Use Screening 1961 Hepatitis C Screening 1967 Pneumococcal Vaccine: 50+ Years (1 of 1 - PCV) 1999 Zoster Vaccines (1 of 2) 1999 Dental X-Ray: Full Mouth 09/01/2015 08/31/2012 COVID-19 Vaccine (3 - 2023- season) 2024 04/04/2021, 03/12/2021 Influenza Vaccine (#1) 2024 RSV Patients and Patients Aged 60 years or older (1 - 1-dose 75+ series) 2024 Dental Oral Exam 03/09/2025 09/08/2024, , 08/28/2023, Additional history exists Dental Prophylaxis 03/09/2025 09/08/2024, 0 03/04/2024, 08/28/2023, Additional history exists Tobacco Screening 09/08/2025 09/08/2024 Dental X-Ray: Bitewings 09/09/2025 09/08/19, 07/08/2024, 08/28/2023, Additional history exists DTaP/Tdap/Td Vaccines (2 - Td or Tdap) 06/30/2033 06/30/2023 HIB Vaccines Aged Out No longer eligi ble based on patient's age to complete this topic HPV Vaccines Aged Out No longer eligi ble based on patient's age to complete this topic Hepatitis A Vaccines Aged Out No long er eligible based on patient's age to complete this topic Hepatitis B Vaccines Aged Out No long er eligible based on patient's age to complete this topic IPV Vaccines Aged Out No longer eligi ble based on patient's age to complete this topic Meningococcal Vaccine Aged Out No sherron misty eligible based on patient's age to complete this topic RSV under 20 months Aged Out No longe r eligible based on patient's age to complete this topic Rotavirus Vaccines Aged Out No longer eligible based on patient's age to complete this topic Procedures Procedure Name Priority Date/Time Associated Diagnosis Comments INTRAORAL - PERIAPICAL FIRST RADIOGRAPHIC IMAGE Routine 09/08/2024 9:00 AM EST INTRAORAL - PERIAPICAL EACH ADDITIONAL RADIOGRAPHIC IMAGE Routine 09/08/2024 9:00 AM EST INTRAORAL - PERIAPICAL EACH ADDITIONAL RADIOGRAPHIC IMAGE Routine 09/08/2024 9:00 AM EST BITEWINGS - 4 RADIOGRAPHIC IMAGES Routine 09/08/2024 9:00 AM EST PROPHYLAXIS - ADULT Routine 09/08/2024 9 :00 AM EST CASE PRESENTATION, DETAILED AND EXTENSIVE TREATMENT PLANNING Routine 09/08/2024 9:00 AM EST PERIODIC ORAL EVALUATION - ESTABLISHED PATIENT Routine 09/08/2024 9:00 AM EST from Last 3 Months Insurance [facility] FULL DENTAL - N FULL (MEDICAID) DENTAL [facility]
--- OUTSIDE RECORDS SUMMARY | 2024-11-16 13:46 | XMS_ITS | Data Portability ---
Author Organization [facility], Home Service Address [address] [place] [address] Assessment Encounter Date Assessment Date Assessment LastModified [...] Modified Time Details Appointments None recorded. Lab vitamin D, 25-hydrox y, total, serum 2018 019 RENEE Not available 9 08:16:28 lipid panel, blood 2018 019 RENEE Not available 9 08:16:28 urinalysi s, dipstick 2018 019 abelanger 7 [facility], [address] [place] [address], [address], [place], [address], 9 10:22:21 CBC w/ auto diff 2018 RENEE Not available 9 08:16:28 CMP, serum or plasma 2018 RENEE Not available 9 08:16:27 hepatitis C Ab, serum 2018 abelanger 7 Not available 9 10:22:21 PSA, serum or plasma 2018 RENEE Not available 9 08:16:28 CBC w/ auto diff 2018 [facility], [address] [place] [address], [address], [place], [address], 9 08:25:27 culture, urine 2018 [facility], [address] [place] [address], [address], [place], [address], 9 08:25:27 erythrocy te sedimenta tion rate by westergre n method 2018 [facility], [address] [place] [address], [address], [place], [address], 9 08:25:27 lipid panel, blood 2017 018 RENEE Not available 8 08:06:53 CBC w/ auto diff 2017 RENEE Not available 8 08:06:53 CMP, serum or plasma 2017 RENEE Not available 8 08:06:53 urinalysi s, dipstick 2017 agatha [facility], [address] [place] [address], [address], [place], [address], 8 16:34:24 Referral physical therapist referral 2018 019 [facility], [address], [place], [address], 9 09:59:04 Procedures None recorded. Surgeries None recorded. Imaging US, testicle 2018 RENEE Not available 9 23:52:57 XR, shoulder 2017 018 RENEE Not available 8 08:44:48 XR, cervical spine, 2 or 3 view 2017 RENEE Not available 8 08:44:48 Medication Orders triamcino lone acetonide 0.1 % topical cream 2018 019 sbjuan pabloo [facility] [place], [address] [place], [address], 9 09:40:50 doxycycli ne hyclate 100 mg tablet 2018 019 sbucko [facility] [place], [address] [place], [address], 9 14:45:15 Medrol (Js) 4 mg tablets in a dose pack 2017 018 tbalicki [facility] [place], [address] [place], [address], 9 11:02:41 Patient TargetsNo targets recorded. Patient Instructions Encounter Date Encounter Id Patient Instructions Last Modified By Organization Details Last Modified Time 07/14/2018 [id number] rhythm strip, EKG* [email or web address] Not available 07/21/2018 08:10:08 Discussed and explained advance directives such as standard forms to the {{patient caregiv er patient and caregiver}}. Face to face discussion lasted for a duration of ___ minutes. [email or web address] Not available 07/14/2018 14:56:29 09/01/2018 [id number] Call if any increased symptoms agatha Not available 09/01/2018 11:54:56 05/15/2019 [id number] sciatica: care instructions Not available 05/15/2019 14:30:34 07/13/2019 [id number] advance care planning: care instructions Not available 07/13/2019 10:22:21 Discussed and explained advance directives such as standard forms to the {{patient caregiv er patient and caregiver}}. Face to face discussion lasted for a duration of ___ minutes. Not available 07/13/2019 09:53:49 Reason for Referral Physical Therapist Referral for Pain in right lower limb Referring Physician: Heydi Soto, Internal Medicine, Encounter Date: 04/27/2019 Results Created Date Observation Date Name Description Value Unit Range Abnormal Flag Note LastModifiedBy Organization Detail LastModifiedTime 07/14/20 18 07/14/2018 urina lysis , dipst ick Leukocytes Negati ve Not Available [facility] [address], [address], 07/14/2018 15:45:13 07/14/20 18 07/14/2018 urina lysis , dipst ick Nitrite negati ve Not Available [address], [address], 07/14/2018 15:45:13 07/14/20 18 07/14/2018 urina lysis , dipst ick Urobilinogen .2 Not Available [facility] [address] [place], [address], 07/14/2018 15:45:13 07/14/20 18 07/14/2018 urina lysis , dipst ick Protein Negati ve Not Available [facility] [address] [place], [address], 07/14/2018 15:45:13 07/14/20 18 07/14/2018 urina lysis , dipst ick pH 6.5 Not Available [facility] [address], [place], [address], 07/14/2018 15:45:13 07/14/20 18 07/14/2018 urina lysis , dipst ick Blood Negati ve Not Available [facility] [address], [place], [address], 07/14/2018 15:45:13 07/14/20 18 07/14/2018 urina lysis , dipst ick Specific [place] 1.015 Not Available [facility] [address], [place], [address], 07/14/2018 15:45:13 07/14/20 18 07/14/2018 urina lysis , dipst ick Ketone Negati ve Not Available [facility] [address], [place], [address], 07/14/2018 15:45:13 07/14/20 18 07/14/2018 urina lysis , dipst ick Bilirubin Negati ve Not Available [facility] [address], [place], [address], 07/14/2018 15:45:13 07/14/20 18 07/14/2018 urina lysis , dipst ick Glucose Negati ve Not Available [facility] [address], [place], [address], 07/14/2018 15:45:13 07/14/20 18 07/14/2018 urina lysis , dipst ick Appearance Clear Not Available [facility] [address], [place], [address], 07/14/2018 15:45:13 07/14/20 18 07/14/2018 urina lysis , dipst ick Color Pale Yellow Not Available [facility] [address], [place], [address], 07/14/2018 15:45:13 07/13/2007/13/2019 urina lysis , dipst ick Leukocytes Negati ve Not Available [facility] [address], [place], [address], 07/13/2019 09:41:37 07/13/2007/13/2019 urina lysis , dipst ick Nitrite negati ve Not Available [facility] [address], [place], [address], 07/13/2019 09:41:37 07/13/2007/13/2019 urina lysis , dipst ick Urobilinogen .2 Not Available [facility] [address], [place], [address], 07/13/2019 09:41:37 07/13/2007/13/2019 urina lysis , dipst ick Protein Negati ve Not Available [facility] [address] [facility] [address], [place], [address], 07/13/2019 09:41:37 07/13/2007/13/2019 urina lysis , dipst ick pH 7.0 Not Available [facility] [address], [place], [address], 07/13/2019 09:41:37 07/13/2007/13/2019 urina lysis , dipst ick Blood Negati ve Not Available [facility] [address], [place], [address], 07/13/2019 09:41:37 07/13/2007/13/2019 urina lysis , dipst ick Specific [place] 1.020 Not Available [facility] [address], [place], [address], 07/13/2019 09:41:37 07/13/2007/13/2019 urina lysis , dipst ick Ketone Negati ve Not Available [facility] [address], [place], [address], 07/13/2019 09:41:37 07/13/20 19 07/13/2019 urina lysis , dipst ick Bilirubin Negati ve Not Available [facility] [address], [place], [address], 07/13/2019 09:41:37 07/13/20 19 07/13/2019 urina lysis , dipst ick Glucose Negati ve Not Available [facility] [address], [place], [address], 07/13/2019 09:41:37 07/13/20 19 07/13/2019 urina lysis , dipst ick Appearance Clear Not Available [facility] [address], [place], [address], 07/13/2019 09:41:37 07/13/20 19 07/13/2019 urina lysis , dipst ick Color Yellow Not Available [facility] [address], [place], [address], 07/13/2019 09:41:37 07/16/20 18 07/15/2018 XR, cervi quinn spine , 2 or 3 view No observ ation record ed. [facility] (Radiology) [address] [place], [address], 07/18/2018 09:21:40 07/16/20 18 07/15/2018 XR, shoul gurdeep No observ ation record ed. [facility] (Radiology) [address] [place], [address], 07/18/2018 09:21:40 09/02/19 19 09/02/2018 US, moreno bloom No observ ation record ed. [facility] [address] [facility], [place], [address], 04/27/2019 15:00:27 Result Notes None recorded. Problems Name Problem SNOMED Code Status Onset Date Resolution Date Notes Provider Name and Address Organization Details Recorded Time History of emphysem a 71113056531 070317 Active 2017 mild Chiquita galloway [facility] 8 12:04:24 Frostbit e 837806260 Active 2017 left great toe Chiquita galloway [facility] 8 12:04:50 Mobitz type II atrioven tricular block 56577729 Active 2017 cleaned by Kar Chiquita galloway [facility] 8 12:05:26 Seasonal allergy 163461474 Active 2017 Melyssa Plummer NP, S [address] [place] [address], [address], [facility] 8 15:05:50 Problem Notes None recorded. Procedures Surgical History Date Name Laterality Status Provider Name and Address Organization Details Recorded Time 03/01/20 14 colonoscopy completed Melyssa Plummer NP, S [address] [place] [address], [address], [facility] 07/14/2018 15:11:36 08/19/18 68 operative procedure on knee completed [address], [address], [facility] 07/13/2019 10:12:06 08/19/18 67 Unlisted px hands/fingers completed [address], [address], [facility] 07/13/2019 10:12:31 Remove tonsils and adenoids completed [address], [address], [facility] 07/13/2019 10:12:44 repair of inguinal hernia completed [address], [address], [facility] 07/13/2019 10:13:02 Imaging Results Imaging Date Name Status LastModified by Organiz ation Details LastModified Time 07/15/2018 XR, cervical spine, 2 or 3 view completed [facility] (Radiology) [address] [place], [address], 07/18/2018 09:21:40 07/15/2018 XR, shoulder completed [facility] (Radiology) [address] [place], [address], 07/18/2018 09:21:40 09/02/2018 US, testicle completed [email or web address] [facility] [address] [place], [address], 04/27/2019 15:00:27 Procedure Notes None recorded. Medical Equipment None Reported. Allergies Allergen ID Allergen Name Allergen Category Reaction Reaction Severity Criticality Documentation Date Start Date Code Code System Note Provider Name and Address Organization Details Recorded Time 186 Substance with sulfonami de structure and antibacte rial mechanism of action (substanc e) medicatio n Not available Not available Not available 02/28/2018 36096 8003 SNOMED Melyssa Plummer NP, S [address] [place], [address], [facility] 8 15:05:10 2701 meclizine medicatio n Not available Not available Not available 09/01/[address] [facility] 9 11:02:37 Medications Name [...] Updated DateTime 9 177.17 cm 24.9 kg/m2 21872.6 1 g 71 /min 98 % 98 % Chelita Menezes [facility] 9 09:44:16 Date Recorded Systolic blood pressure Diastolic blood pressure Provider Name and Address Organization Details Last Updated DateTime 07/13/2019 122 mm[Hg] 70 mm[Hg] November [address], [address], [facility] 07/13/2019 10:21:59 Date Recorded Body height Body mass index (BMI) Body weight Heart rate Oxygen saturation Oxygen saturation in Arterial blood by Pulse oximetry Systolic blood pressure Diastolic blood pressure Provider Name and Address Organization Details Last Updated DateTime 8 177.17 cm 24.8 kg/m2 76935.1 7 g 72 /min 98 % 98 % 120 mm[Hg] 74 mm[Hg] Chiquita Gallo [facility] 8 15:00:35 Date Recorded Body height Body mass index (BMI) Body weight Oxygen saturation Oxygen saturation in Arterial blood by Pulse oximetry Heart rate Body temperature Systolic blood pressure Diastolic blood pressure Provider Name and Address Organization Details Last Updated DateTime 9 177.17 cm 25.6 kg/m2 74355.8 5 g 99 % 99 % 78 /min 98.1 [degF] 124 mm[Hg] 68 mm[Hg] Chiquita Cleo [facility] 9 11:04:04 Date Recorded Body height Body mass index (BMI) Body weight Heart rate Oxygen saturation Oxygen saturation in Arterial blood by Pulse oximetry Systolic blood pressure Diastolic blood pressure Provider Name and Address Organization Details Last Updated DateTime 9 177.17 cm 24.7 kg/m2 80049.9 4 g 70 /min 99 % 99 % 130 mm[Hg] 76 mm[Hg] Chelita Menezes [facility] 9 14:46:35 Date Recorded Body height Body mass index (BMI) Body weight Heart rate Oxygen saturation Oxygen saturation in Arterial blood by Pulse oximetry Systolic blood pressure Diastolic blood pressure Provider Name and Address Organization Details Last Updated DateTime 9 177.17 cm 24.6 kg/m2 86094.7 8 g 69 /min 98 % 98 % 110 mm[Hg] 80 mm[Hg] Chelita Menezes [facility] 9 14:16:22 Social History Question Answer Notes LastModified by Organizat ion Details LastModified Time Tobacco Smoking Status Never Smoker Chiquita Gallo [facility] 07/14/2018 14:59:21 Do You [...] Code Diagnosis Note [id number] Melyssa Plummer NP, S [facility] [address] [facility] [address] 02/28/2018 14:55:21 03/04/2018 08:06:35 On examination - rash present 353209220 R21 [id number] Melyssa Plummer NP, [facility] [address],[place] [address] 07/14/2018 14:54:49 07/14/2018 15:46:20 Adult health examination 376498841 Z00.01 Screening for cardiovascular system disease 969762935 Z13.6 Pain in right arm 316354 004 M79.601 Atypical chest pain 1025 13389 R07.89 [id number] Melyssa Plummer NP, [facility] [address] [facility],[place] [address] 09/01/2018 10:52:36 09/01/2018 11:57:52 Pain in testicle 13534504 N50.819 [id number] Heydi [facility] [address],[place] [address] 04/27/2019 14:38:55 04/27/2019 15:14:55 Pain in right lower limb 333968613 M79.604 ? nerve impingemen t dvt very unlikely ibuprofen 800 mg tid prn has old oxycodone which is ok to take if in extreme pain [id number] November [facility] [address] [facility] [address],[place] [address] 05/15/2019 14:07:20 05/15/2019 14:32:51 Pruritic rash 27315767 L28.2 Sciatica 42718641 M54[place] [id number] November SUE Soto [facility] [address] [facility] [address],[place] [address] 07/13/2019 09:34:50 07/13/2019 10:27:49 Adult health examination 300478053 Z00.00 HCP - sister - debbi mora Active or passive immunization 861366002 Z23 refuses flu shot ama Screening for cardiovascular system disease 528763696 Z13.6 Vitamin D deficiency 347 16635 E55.9 Cough 42754174 R05 has dry/troat clearing habit - just [...] Ramos Member ID Guarantor Name 07/14/2018 1 [facility] (MEDICARE REPLACEMENT/ ADVANTAGE - HMO) [id number] [id number] [employer] 09/01/2018 1 [facility] (MEDICARE REPLACEMENT/ ADVANTAGE - HMO) [id number] [id number] [employer] 04/27/2019 1 [facility] (MEDICARE REPLACEMENT/ ADVANTAGE - HMO) [id number] [id number] [employer] 05/15/2019 1 [facility] (MEDICARE REPLACEMENT/ ADVANTAGE - HMO) [id number] [id number] [employer] 07/13/2019 1 [facility] (MEDICARE REPLACEMENT/ ADVANTAGE - HMO) [id number] [id number] [employer] Notes Date Note Type Note [...] associated symptoms Melyssa Plummer NP, S [address] [place], [address], [facility] 07/14/2018 16:35:01 9 text/html Hx: orchiditis Some recent ( 1 week ) on/off testicular discomfort ( 2 or 3 on pain scale ) More on left side No penile discharge, no rash No fever Denies back, abdominal pain, minimal suprapubic discomfort No hematuria, No BRBPR Melyssa Plummer NP, S [address] [place], [address], [facility] 09/01/2018 11:55:11 9 text/html c/o pain in the hamstring area for 1 week, but no injury, just woke up with some tension initially played 11 games of DNA13 ball yesterday and also has tightness in [...] than when sitting longest drive was to [place], but the pain preceded this trip has [...] rashes, or nail changes. SUE Finn [address] [place], [address], [facility] 04/27/2019 15:11:32 9 text/html rash [...] rashes, or nail changes. Heydi SUE Soto [address] [place] [address], [address], [facility] 05/18/2019 13:40:00 9 text/html Medicare [...] good lighting in the home SUE Finn [address] [place] [address], [address], [facility] 07/13/2019 10:27:14
--- OUTSIDE RECORDS SUMMARY | 2024-11-16 13:46 | XMS_ITS | Encounter Summary ---
Author Organization [employer] Address [address] [facility] [address]t [place] [address] Care Team Providers Care Flag Maker Name Role Phone Unavailable Primary Care Provider Unavailabl e Encounter Details Date Type Department Care Team (Latest Contact Info) Description 03/06/2021 Abstract [facility] CONVERSIONS Dental, Provider, DDS Social History Tobacco Use Types Packs/Day Years Used Date Smoking Tobacco: Never Assessed Sex and Gender Information Value Date Recorded Sex Assigned at Male 06/18/2022 10:24 AM EDT Legal Sex Male 10:24 AM EDT Gender Identity Male 06/18/2022 10:24 AM EDT Sexual Orientation Choose not to disclose 2021 10:24 AM EDT documented as of this encounter Plan of Treatment Upcoming Encounters Date Type Department Care Team (Late st Contact Info) Description 03/29/2025 9:00 AM EDT Office Visit [facility] [address] [place] [address] Jolene Hope [address] [place] [address] documented as of this encounter Visit Diagnoses Not on filedocumented in this encounter
--- OUTSIDE RECORDS SUMMARY | 2024-11-16 13:46 | XMS_ITS | Encounter Summary ---
Author Organization [facility] Address [address] [place] [address] Care Team Providers Care Human Resources Benefits Assistant Name Role Phone Unavailable Primary Care Provider Unavailabl e Prior Encounters Date Type Department Care Team Description 09/07/2019 Converted 13x Documents [facility] [address] [place] [phone] <No scans attached> 09/07/2019 Converted CPS Chart Documents [facility] [address], [facility] [address] [place] [address] <No scans attached> 09/07/2019 Converted 13x Documents [facility] [address], [facility] [address] [place] [address] <No scans attached> Plan of Treatment Not on file Procedures Procedure Name Priority Date/Time Associated Diagnosis Comments NC X-RAY Routine 10/05/2019 1:00 AM [facility] 28 CORE BUILDUP, INCLUDING ANY PINS WHEN REQUIRED Routine 09/25/2019 1:00 AM MST 28 CEMENT CROWN Routine 09/25/2019 1:00 AM MST 28 ENDODONTIC THERAPY, PREMOLAR TOOTH (EXCLUDING FINAL PENTECOSTAL) Routine 09/25/2019 1:00 AM MST 28 CEREC CROWN POST Routine 09/25/2019 1 :00 AM MST 28 CROWN PFM POST Routine 09/23/2019 1:0 0 AM MST 28 LIMITED ORAL EVALUATION - PROBLEM FOCUSED Routine 09/23/2019 1:00 AM MST PANORAMIC RADIOGRAPHIC IMAGE Routine 09/23/2019 1:00 AM MST ADDITIONAL X-RAY Routine 09/23/2019 1:00 AM MST SINGLE X-RAY Routine 09/23/2019 1:00 AM MST MISSED APPOINTMENT Routine 09/23/2019 1: 00 AM MST Visit Diagnoses Not on file
--- OUTSIDE RECORDS SUMMARY | 2024-11-16 13:46 | XMS_ITS | Clinical Summary ---
Author Organization [facility] Address [address] [place] [address] Care Team Providers Care Check Weigher Name Role Phone Unavailable Primary Care Provider Unavailabl e Social History Tobacco Use Types Packs/Day Years Used Date Smoking Tobacco: Never Assessed Sex and Gender Information Value Date Recorded Sex Assigned at Not on file Legal Sex Male 12:05 PM PST Gender Identity Not on file Sexual Orientation Not on file Plan of Treatment Not on file
--- OUTSIDE RECORDS SUMMARY | 2024-11-16 13:46 | XMS_ITS | Encounter Summary ---
Author Organization [employer] Address [address] [facility] [address] [place] [address] Care Team Providers Care Machine Folder Name Role Phone Unavailable Primary Care Provider Unavailabl e Encounter Details Date Type Department Care Team (Latest Contact Info) Description 01/13/2019 Abstract [facility] CONVERSIONS Dental, Provider, DDS Social History Tobacco [...] Description 03/29/2025 9:00 AM EDT Office Visit [facility] [address] [place], [place] [id number] Jolene Hope [address] [place] [address] documented as of this encounter Visit Diagnoses Not on filedocumented in this encounter
[2024-11-16 13:49] LABS: PSA,Total (Free>4and<10) 4.55 ng/mL (0.00-4.00)
[2024-11-18 13:34] LABS: Free Prostate Spec Ag 0.7 ng/mL; Percent Free Prostate Spec Ag 15 % (calc) (>25); Prostate Specific Ag Total 4.6 ng/mL (< OR = 4.0)
== END 2024-11-16 12:05 | disposition home or self-care (01) ==
LOC: HO.LAB 12:04
PROVIDERS: PCP Family Medicine; Visit Provider Urology
DX: C61 Malignant neoplasm of prostate (principal); Z19.1 Hormone sensitive malignancy status; Z12.5 Encounter for screening for malignant neoplasm of prostate
CPT/HCPCS: 36415; 84153; 84154

== ENCOUNTER 2024-11-20 09:29 | Outpatient (AMB) | payer MEDICARE, SELFPAY ==
--- NOTE | 2024-11-20 10:23 | MHC.OFFWIV ---
Intake Vital Signs 11/20/24 10:25 Height 5 ft 11 in Weight 169 lb BMI 23.6 BP 138/72 Blood Pressure Location Lt brachial Position Sitting Respiration 13 Pulse 63 Pulse Source Pulse Oximeter Temp 97.2 F Temp Source Oral Pulse Oximetry (%) 99 Oxygen Delivery Method Room Air Intake Visit Reasons: est left knee pain Intake Note: Patient c/o left knee px x 2 weeks Patient Tobacco Use Status: Never used Tobacco Allergies Sulfa (Sulfonamide Antibiotics) Allergy (Intermediate, Verified 11/20/24 10:44) Unknown Medication List - Last Reconciled 11/20/24 by Florinda Pike, CIGAR WR[employer]PER- diclofenac sodium 1% (Arthritis Pain (diclofenac)) 4 grams topical BID 30 days Do you need a note to return to daycare/school/sports/work: No HPI HPI Comments History of Present Illness Details - The patient is a 74-year-old male presenting with left knee pain and a request for physical therapy evaluation. - Knee problems originated in > 30 years ago with a longstanding absence of cartilage in the left knee. - Despite bone on bone diagnosis and advice for surgery 10 years ago, the patient was asymptomatic for pain until several weeks ago when continuous knee pain developed. - The recent escalation in pain coincided with routine activities, impacting mobility, specifically the ability to bend the knee backward. - Last physical therapy was impactfully managed through body mechanics adjustment with pain levels reduced to minimal. - He would like an Xray and referral to PT - Diagnosed with prostate cancer - Actively managing prostate health through dietary changes and homeopathic supplements. - Active w. [facility] [place] Uro Exam Awake alert NAD FROM L knee, no pain on palp; chronic arthritic changes noted, LLE neurovasc intact No erythema or edema Has kinesiology tape applied I discussed the diagnosis of osteoarthritis in the left knee with the patient, noting the historical advice for a potential knee replacement. The patient expressed the desire to try physical therapy before considering surgical options, which I supported. We discussed obtaining an updated X-ray to assess any progression since the last imaging ten years ago, with instructions to bring prior imaging for comparison. For prostate health management, we reviewed dietary adjustments and homeopathic supplements the patient is currently taking. 1. Osteoarthritis of the left knee: The patient is to obtain a new X-ray to evaluate the left knee status and compare with previous imaging. Referral to physical therapy has been made, with specific guidance on commencing therapy sessions in [place] or an alternative location based on availability. 2. Prostate cancer: FU with Uro as scheduled. Lifestyle modifications, particularly dietary changes, were reviewed as part of the care strategy. Total time spent caring for the patient today was 30 minutes. This includes time spent before the visit reviewing the chart, time spent during the visit, and time spent after the visit on documentation, reviewing laboratory results, diagnostic imaging, medications, performing a medically necessary evaluation, counseling on diagnoses, care coordination, ordering appropriate tests, ordering appropriate medications, review of tests performed by other providers, reporting test results with the patient, communication with other healthcare providers. [facility] Medical History Stroke Inguinal hernia Surgical History Hx of inguinal hernia surgery History of knee surgery History of hand surgery Family History Mother Cancer Father Cardiovascular disease Social History Household Members: None Housing: Other Housing Other:: Mobile home 75 years or older and lives alone: No Alcohol intake: current Alcohol intake frequency: a few times a week Alcohol type: wine Patient Tobacco Use Status: Never used Tobacco e-Cigarette/Vaping Use: Never Used service: No Current occupational status: retired Current occupational exposures/hazards: No Cognitive needs: No Hearing needs: No Vision needs: No Physical Exam Vital Signs: Last Vital Signs Temp 97.2 F 11/20/24 10:25 Pulse 63 11/20/24 10:25 Resp 13 11/20/24 10:25 BP 138/72 11/20/24 10:25 Pulse Ox 99 11/20/24 10:25 Oxygen Delivery Method Simple Mask 11/20/24 10:25 BMI result Body Mass Index 23.6 Assessment & Plan Assessment & Plan (1) Osteoarthritis of left knee: Code(s): M17.12 - Unilateral primary osteoarthritis, left knee Qualifiers: Osteoarthritis type: primary Qualified Code(s): M17.12 - Unilateral primary osteoarthritis, left knee (2) Hormone sensitive prostate cancer: Code(s): C61 - Malignant neoplasm of prostate; Z19.1 - Hormone sensitive malignancy status Plan . Orders: Orders XR knee LT 4V Today M17.12 - Unilateral primary osteoarthritis, left knee PT Evaluation and Treatment Today M17.12 - Unilateral primary osteoarthritis, left knee Coding Level of Care Code Est Pt Level 4 (30981) Diagnoses Primary osteoarthritis of left knee M17.12 Osteoarthritis type: primary Hormone sensitive prostate cancer C61; Z19.1
--- OUTSIDE RECORDS SUMMARY | 2024-11-20 10:24 | XMS_ITS | Encounter Summary ---
Author Organization [employer] Address [address] [place] [address] Care Team Providers Care Calculus Professor Name Role Phone Unavailable Primary Care Provider Unavailabl e Encounter Details Date Type Department Care Team (Latest Contact Info) Description 03/06/2021 Abstract [facility] CONVERSIONS Dental, Provider, DDS Social History Tobacco [...] Description 03/29/2025 9:00 AM EDT Office Visit [facility] [address] [place] [address] Jolene Hope [address] [place] [address] documented as of this encounter Visit Diagnoses Not on filedocumented in this encounter
--- OUTSIDE RECORDS SUMMARY | 2024-11-20 10:24 | XMS_ITS | Encounter Summary ---
Author Organization [employer] Address [address] [place] [address] Care Team Providers Care Creative Strategist Name Role Phone Unavailable Primary Care Provider [...] Description 03/29/2025 9:00 AM EDT Office Visit [facility] [address] [place], [place] [phone] Jolene Hope [address] [place], [place] [phone] documented as of this encounter Visit Diagnoses Not on filedocumented in this encounter
--- OUTSIDE RECORDS SUMMARY | 2024-11-20 10:24 | XMS_ITS | Encounter Summary ---
Author Organization [employer] Address [address] [place] [address] Care Team Providers Care Director Of Knowledge Management Name Role Phone Unavailable Primary Care Provider Unavailabl e Encounter Details Date Type Department Care Team (Latest Contact Info) Description 01/13/2019 Abstract [facility] CONVERSIONS Dental, Provider, DDS Social History Tobacco [...] Description 03/29/2025 9:00 AM EDT Office Visit [facility] D[facility] [address] [place], [place] [phone] Jolene Hope [address] [place] [address] documented as of this encounter Visit Diagnoses Not on filedocumented in this encounter
--- OUTSIDE RECORDS SUMMARY | 2024-11-20 10:24 | XMS_ITS | Clinical Summary ---
Author Organization [employer] Address [address] [place] [address] [address] [place] [address] Care Team Providers Care Monotype Caster Name Role Phone Unavailable Primary Care Provider Unavailabl e Allergies Active Allergy Reactions Criticality Noted Date Comments Sulfa Antibiotics Unknown 07/08/2017 Medications No known medications Encounters Date Type Department Care Team Description 09/08/2024 9:00 AM EST Office Visit [facility] [address] [place] [address] [phone] Jolene Hope from Last 3 Months Social History [...] Description 03/29/2025 9:00 AM EDT Office Visit [facility] [address] [place] [address] [phone] Jolene Hope [address] [place], [place] [phone] Health Maintenance Due Date Last Done Comments [...] FULL DENTAL - N FULL (MEDICAID) DENTAL [facility]
--- OUTSIDE RECORDS SUMMARY | 2024-11-20 10:24 | XMS_ITS | Data Portability ---
Author Organization [facility] Internal Medicine, Home Service Address [address] [place] [address] Assessment Encounter Date Assessment Date Assessment LastModified [...] reduce health risks and promote healthy living. [email or web address] Not available 07/13/2019 10:22:19 Plan of Treatment Reminders Order Date Submit Date Provider Last Modified By Organization Details Last Modified Time Details Appointments None recorded. Lab vitamin D, 25-hydrox y, total, serum 2018 019 RENEE Not available 9 08:16:28 lipid panel, blood 2018 019 RENEE Not available 9 08:16:28 urinalysi s, dipstick 2018 019 [email or web address] 7 [facility] Internal Medicine, [address] [place] [address], [address], [place], [address], 9 10:22:21 CBC w/ auto diff 2018 RENEE Not available 9 08:16:28 CMP, serum or plasma 2018 RENEE Not available 9 08:16:27 hepatitis C Ab, serum 2018 abelanger 7 Not available 9 10:22:21 PSA, serum or plasma 2018 RENEE Not available 9 08:16:28 CBC w/ auto diff 2018 [facility] Internal Medicine, [address] [place] [address], [address], [place], [address], 9 08:25:27 culture, urine 2018 [facility], [address] [place] [address], [address], [place], [address], 9 08:25:27 erythrocy te sedimenta tion rate by westergre n method 2018 [facility] Internal Medicine, [address] [place] [address], [address], [place], [address], 9 08:25:27 lipid panel, blood 2017 018 RENEE Not available 8 08:06:53 CBC w/ auto diff 2017 RENEE Not available 8 08:06:53 CMP, serum or plasma 2017 RENEE Not available 8 08:06:53 urinalysi s, dipstick 2017 agatha [facility] Internal Medicine, [address] [place] [address], [address], [place], [address], 8 16:34:24 Referral physical therapist referral [address] [facility], [address], [place], [address], 9 09:59:04 Procedures None recorded. Surgeries None recorded. Imaging US, testicle 2018 RENEE Not available 9 23:52:57 XR, shoulder 2017 018 RENEE Not available 8 08:44:48 XR, cervical spine, 2 or 3 view 2017 RENEE Not available 8 08:44:48 Medication Orders triamcino lone acetonide 0.1 % topical cream 2018 019 sbjuan pabloo [facility] [place], [address] [place], [address], 9 09:40:50 doxycycli ne hyclate 100 mg tablet 2018 019 sbucko [facility] [place], [address] [place], [address], 9 14:45:15 Medrol (Js) 4 mg tablets in a dose pack 2017 018 tbalicki [facility] [place], [address] [place], [address], 9 11:02:41 Patient TargetsNo targets recorded. Patient Instructions Encounter Date Encounter Id Patient Instructions Last Modified By Organization Details Last Modified Time 07/14/2018 [id number] rhythm strip, EKG* [email or web address] Not available 07/21/2018 08:10:08 Discussed and explained advance directives such as standard forms to the {{patient caregiv er patient and caregiver}}. Face to face discussion lasted for a duration of ___ minutes. [email or web address] Not available 07/14/2018 14:56:29 09/01/2018 [id number] Call if any increased symptoms agatha Not available 09/01/2018 11:54:56 05/15/2019 [id number] sciatica: care instructions Not available 05/15/2019 14:30:34 07/13/2019 [id number] advance care planning: care instructions Not available [...] dipst ick Leukocytes Negati ve Not Available [facility] Internal [address], [address], 07/14/2018 15:45:13 07/14/20 18 07/14/2018 urina lysis , dipst ick Nitrite negati ve Not Available [address], [address], 07/14/2018 15:45:13 07/14/20 18 07/14/2018 urina lysis , dipst ick Urobilinogen .2 Not Available [facility] Internal [facility] [address] [place], [address], 07/14/2018 15:45:13 07/14/20 18 07/14/2018 urina lysis , dipst ick Protein Negati ve Not Available [facility] [address] [place], [address], 07/14/2018 15:45:13 07/14/20 18 07/14/2018 urina lysis , dipst ick pH 6.5 Not Available [facility] Internal [facility] [address] [facility], [place], [address], 07/14/2018 15:45:13 07/14/20 18 07/14/2018 urina lysis , dipst ick Blood Negati ve Not Available [facility] [address] [facility] [address], [place], [address], 07/14/2018 15:45:13 07/14/20 18 07/14/2018 urina lysis , dipst ick Specific Casco 1.015 Not Available [facility] [address] [facility] [address], [place], [address], 07/14/2018 15:45:13 07/14/20 18 07/14/2018 urina lysis , dipst ick Ketone Negati ve Not Available [facility] [address] [facility] [address], [place], [address], 07/14/2018 15:45:13 07/14/20 18 07/14/2018 urina lysis , dipst ick Bilirubin Negati ve Not Available [facility] [address] [facility] [address], [place], [address], 07/14/2018 15:45:13 07/14/20 18 07/14/2018 urina lysis , dipst ick Glucose Negati ve Not Available [facility] [address] [facility] [address], [place], [address], 07/14/2018 15:45:13 07/14/20 18 07/14/2018 urina lysis , dipst ick Appearance Clear Not Available [facility] [address], [place], [address], 07/14/2018 15:45:13 07/14/20 18 07/14/2018 urina lysis , dipst ick Color Pale Yellow Not Available [facility] [address] [facility] [address], [place], [address], 07/14/2018 15:45:13 07/13/2007/13/2019 urina lysis , dipst ick Leukocytes Negati ve Not Available [facility] Internal [facility] [address], [place], [address], 07/13/2019 09:41:37 07/13/2007/13/2019 urina lysis , dipst ick Nitrite negati ve Not Available [facility] [address] [facility] [address], [place], [address], 07/13/2019 09:41:37 07/13/2007/13/2019 urina lysis , dipst ick Urobilinogen .2 Not Available [facility] [address], [place], [address], 07/13/2019 09:41:37 07/13/2007/13/2019 urina lysis , dipst ick Protein Negati ve Not Available [facility] [address] [facility] [address], [place], [address], 07/13/2019 09:41:37 07/13/2007/13/2019 urina lysis , dipst ick pH 7.0 Not Available [facility] [address] [facility] [address], [place], [address], 07/13/2019 09:41:37 07/13/2007/13/2019 urina lysis , dipst ick Blood Negati ve Not Available [facility] [address], [place], [address], 07/13/2019 09:41:37 07/13/2007/13/2019 urina lysis , dipst ick Specific Casco 1.020 Not Available [facility] Internal [facility] [address] [facility] [address], [place], [address], 07/13/2019 09:41:37 07/13/2007/13/2019 urina lysis , dipst ick Ketone Negati ve Not Available [facility] [address], [place], [address], 07/13/2019 09:41:37 07/13/20 19 07/13/2019 urina lysis , dipst ick Bilirubin Negati ve Not Available [facility] [address], [place], [address], 07/13/2019 09:41:37 07/13/20 19 07/13/2019 urina lysis , dipst ick Glucose Negati ve Not Available [facility] [address], [place], [address], 07/13/2019 09:41:37 07/13/20 19 07/13/2019 urina lysis , dipst ick Appearance Clear Not Available [facility] [address], [place], [address], 07/13/2019 09:41:37 07/13/20 19 07/13/2019 urina lysis , dipst ick Color Yellow Not Available [facility] Medicine [address], [place], [address], 07/13/2019 09:41:37 07/16/20 18 07/15/2018 XR, cervi quinn spine , 2 or 3 view No observ ation record ed. [facility] (Radiology) [address] [place], [address], 07/18/2018 09:21:40 07/16/20 18 07/15/2018 XR, shoul gurdeep No observ ation record ed. [facility] (Radiology) [address] [place], [address], 07/18/2018 09:21:40 09/02/19 19 09/02/2018 US, moreno bloom No observ ation record ed. [facility] Diagnostic Imaging [address] [facility], [place], [address], 04/27/2019 15:00:27 Result Notes None recorded. Problems Name Problem SNOMED Code Status Onset Date Resolution Date Notes Provider Name and Address Organization Details Recorded Time History of emphysem a 15297529749 645725 Active 2017 mild Chiquita galloway [facility] 8 12:04:24 Frostbit e 145362219 Active 2017 left great toe Chiquita galloway [facility] 8 12:04:50 Mobitz type II atrioven tricular block 34515535 Active 2017 cleaned by Kar Chiquita galloway [facility] 8 12:05:26 Seasonal allergy 533452836 Active 2017 Melyssa Plummer NP, S [address] [place] [address], [address], [facility] Internal [facility] 8 15:05:50 Problem Notes None recorded. Procedures Surgical History Date Name Laterality Status Provider Name and Address Organization Details Recorded Time 03/01/20 14 colonoscopy completed Melyssa Plummer NP, S [address] [place] [address], [address], [facility] 07/14/2018 15:11:36 08/19/18 68 operative procedure on knee completed [address], [address], [facility] Internal [facility] 07/13/2019 10:12:06 08/19/18 67 Unlisted px hands/fingers completed [address], [address], [facility] Internal Medicine 07/13/2019 10:12:31 Remove tonsils and adenoids completed [address], [address], [facility] Internal [facility] 07/13/2019 10:12:44 repair of inguinal hernia completed [address], [address], [facility] Internal Medicine 07/13/2019 10:13:02 Imaging Results Imaging Date Name Status LastModified by Organiz ation Details LastModified Time 07/15/2018 XR, cervical spine, 2 or 3 view completed [facility] (Radiology) [address] [place], [address], 07/18/2018 09:21:40 07/15/2018 XR, shoulder completed [facility] (Radiology) [address] [place], [address], 07/18/2018 09:21:40 09/02/2018 US, testicle completed [email or web address] [facility] [address] [place], [address], 04/27/2019 15:00:27 Procedure Notes None recorded. Medical Equipment None Reported. Allergies Allergen ID Allergen Name Allergen Category Reaction Reaction Severity Criticality Documentation Date Start Date Code Code System Note Provider Name and Address Organization Details Recorded Time 186 Substance with sulfonami de structure and antibacte rial mechanism of action (substanc e) medicatio n Not available Not available Not available 02/28/2018 58208 8003 SNOMED Melyssa Plummer NP, S [address] [place], [address], [facility] Internal Medicine 8 15:05:10 2701 meclizine medicatio n Not available Not available Not available 09/01/2018 6676 RxNorm Chiquita Gallo [facility] Internal Medicine 9 11:02:37 Medications Name [...] Updated DateTime 9 177.17 cm 24.9 kg/m2 73487.6 1 g 71 /min 98 % 98 % Chelita Menezes [facility] Internal Medicine 9 09:44:16 Date Recorded Systolic blood pressure Diastolic blood pressure Provider Name and Address Organization Details Last Updated DateTime 07/13/2019 122 mm[Hg] 70 mm[Hg] November [address], [address], [facility] Internal Medicine 07/13/2019 10:21:59 Date Recorded Body height Body mass index (BMI) Body weight Heart rate Oxygen saturation Oxygen saturation in Arterial blood by Pulse oximetry Systolic blood pressure Diastolic blood pressure Provider Name and Address Organization Details Last Updated DateTime 8 177.17 cm 24.8 kg/m2 10990.1 7 g 72 /min 98 % 98 % 120 mm[Hg] 74 mm[Hg] Chiquita Gallo [facility] Internal Medicine 8 15:00:35 Date Recorded Body height Body mass index (BMI) Body weight Oxygen saturation Oxygen saturation in Arterial blood by Pulse oximetry Heart rate Body temperature Systolic blood pressure Diastolic blood pressure Provider Name and Address Organization Details Last Updated DateTime 9 177.17 cm 25.6 kg/m2 56097.8 5 g 99 % 99 % 78 /min 98.1 [degF] 124 mm[Hg] 68 mm[Hg] Chiquita Cleo [facility] Internal Medicine 9 11:04:04 Date Recorded Body height Body mass index (BMI) Body weight Heart rate Oxygen saturation Oxygen saturation in Arterial blood by Pulse oximetry Systolic blood pressure Diastolic blood pressure Provider Name and Address Organization Details Last Updated DateTime 9 177.17 cm 24.7 kg/m2 71745.9 4 g 70 /min 99 % 99 % 130 mm[Hg] 76 mm[Hg] Chelita Menezes [facility] Internal Medicine 9 14:46:35 Date Recorded Body height Body mass index (BMI) Body weight Heart rate Oxygen saturation Oxygen saturation in Arterial blood by Pulse oximetry Systolic blood pressure Diastolic blood pressure Provider Name and Address Organization Details Last Updated DateTime 9 177.17 cm 24.6 kg/m2 98675.7 8 g 69 /min 98 % 98 % 110 mm[Hg] 80 mm[Hg] Chelita Menezes [facility] Internal Medicine 9 14:16:22 Social History Question Answer Notes LastModified by Organizat ion Details LastModified Time Tobacco Smoking Status Never Smoker Chiquita Gallo [facility] Internal Medicine 07/14/2018 14:59:21 Do You [...] Diagnosis Note [id number] Melyssa Plummer NP, S [facility] Internal Medicine [address] [facility],[place] [address] 02/28/2018 14:55:21 03/04/2018 08:06:35 On examination - rash present 982532495 R21 [id number] Melyssa Plummer NP, [facility] Internal Medicine [address] [facility],[place] [address] 07/14/2018 14:54:49 07/14/2018 15:46:20 Adult health examination 812474552 Z00.01 Screening for cardiovascular system disease 956118535 Z13.6 Pain in right arm 751582 004 M79.601 Atypical chest pain 1025 99600 R07.89 [id number] Melyssa Plummer NP, [facility] Internal Medicine [address] [facility],[place] [address] 09/01/2018 10:52:36 09/01/2018 11:57:52 Pain in testicle 50255968 N50.[id number] [facility] Internal Medicine [address] [facility],[place] [address] 04/27/2019 14:38:55 04/27/2019 15:14:55 Pain in right lower limb 356735002 M79.604 ? nerve impingemen t dvt very unlikely ibuprofen 800 mg tid prn has old oxycodone which is ok to take if in extreme pain [id number] [facility] Internal Medicine [address] [facility] [address],[place] [address] 05/15/2019 14:07:20 05/15/2019 14:32:51 Pruritic rash 43597061 L28.2 Sciatica 50428647 M54[place]30 [place] [id number] November [facility] [address] [facility] [address],[place] [address] 07/13/2019 09:34:50 07/13/2019 10:27:49 Adult health examination 181039001 Z00.00 HCP - sister - debbi mora Active or passive immunization 764671952 Z23 refuses flu shot ama Screening for cardiovascular system disease 749598080 Z13.6 Vitamin D deficiency 347 31822 E55.9 Cough 34535691 R05 has dry/troat clearing habit - just [...] Ramos Member ID Guarantor Name 07/14/2018 1 [facility] (MEDICARE REPLACEMENT/ ADVANTAGE - HMO) [id number] [id number] [place] 09/01/2018 1 [facility] (MEDICARE REPLACEMENT/ ADVANTAGE - HMO) [id number] [address] [id number] Forest [place] 04/27/2019 1 [facility] (MEDICARE REPLACEMENT/ ADVANTAGE - HMO) [id number] [address] [id number] Forest [employer] 05/15/2019 1 [facility] (MEDICARE REPLACEMENT/ ADVANTAGE - HMO) [id number] [address] [id number] Forest [employer] 07/13/2019 1 [facility] (MEDICARE REPLACEMENT/ ADVANTAGE - HMO) [id number] [address] [id number] Forest [employer] Notes Date Note Type Note [...] associated symptoms Melyssa Plummer NP, S [address] [place], [address], [facility] Internal Medicine 07/14/2018 16:35:01 9 text/html Hx: orchiditis Some recent ( 1 week ) on/off testicular discomfort ( 2 or 3 on pain scale ) More on left side No penile discharge, no rash No fever Denies back, abdominal pain, minimal suprapubic discomfort No hematuria, No BRBPR Melyssa Plummer NP, S [address] [place], [address], [facility] Internal Medicine 09/01/2018 11:55:11 9 text/html c/o pain in the hamstring area for 1 week, but no injury, just woke up with some tension initially played 11 games of Giggle ball yesterday and also has tightness in [...] than when sitting longest drive was to [place], but the pain preceded this trip has [...] rashes, or nail changes. SUE Finn [address] [place], [address], [facility] Internal Medicine 04/27/2019 15:11:32 9 [...] rashes, or nail changes. Heydi [facility]oto [address] [place] [address], [address], [facility] 05/18/2019 13:40:00 9 [...] good lighting in the home SUE Finn [address] [place] [address], [address], [facility] 07/13/2019 10:27:14
--- OUTSIDE RECORDS SUMMARY | 2024-11-20 10:24 | XMS_ITS | Encounter Summary ---
Author Organization [facility] Address [address] [place] [address] Care Team Providers Care Buckle Coverer Name Role Phone Unavailable Primary Care Provider Unavailabl e Prior Encounters Date Type Department Care Team Description 09/07/2019 Converted 13x Documents [facility] [address] [place] [address] <No scans attached> 09/07/2019 Converted CPS Chart Documents [facility] [address], [facility] [address] [place] [address] <No scans attached> 09/07/2019 Converted 13x Documents [facility] [address], [facility] [address] [place] [address] <No scans attached> Plan of Treatment Not on file Procedures Procedure Name Priority Date/Time Associated Diagnosis Comments NC X-RAY Routine 10/05/2019 1:00 AM MST 28 CORE BUILDUP, INCLUDING ANY PINS WHEN REQUIRED Routine 09/25/2019 1:00 AM MST 28 CEMENT CROWN Routine 09/25/2019 1:00 AM MST 28 ENDODONTIC THERAPY, PREMOLAR TOOTH (EXCLUDING FINAL JEW) Routine 09/25/2019 1:00 AM MST 28 CEREC [...]
--- OUTSIDE RECORDS SUMMARY | 2024-11-20 10:24 | XMS_ITS | Clinical Summary ---
Author Organization [facility] Address [address] [place] [address] Care Team Providers Care Lithographic Press Operator Apprentice Name Role Phone Unavailable Primary Care Provider [...]
[2024-11-20 10:25] VITALS: BP 138/72; PULSE 63; RESP 13; TEMP 36.2; O2SAT 99; BMI 23.6
== END 2024-11-20 10:55 | disposition home or self-care (01) ==
LOC: HO.HMCWIW 09:29
PROVIDERS: PCP Family Medicine; Visit Provider Nurse Practitioner Family
DX: M17.12 Unilateral primary osteoarthritis, left knee (principal); C61 Malignant neoplasm of prostate; Z19.1 Hormone sensitive malignancy status

== ENCOUNTER 2024-11-20 09:29 | Outpatient (REF) | payer MEDICARE, SELFPAY ==
--- NOTE | ~2024-11-20 | XR_ITS ---
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 TECHNIQUE: Four views of the left knee. FINDINGS: No fracture, dislocation, or suspicious bone lesion. Normal bone mineralization. Moderate chondrocalcinosis noted in the medial and lateral compartments. Findings suggest CPPD. Moderate tricompartmental arthritis present with proliferative marginal spurring, and mild to moderate joint space narrowing. Moderate to severe narrowing in the lateral compartment noted on the tunnel view. There is spurring of the tibial spines. No significant joint effusion evident. Subtle suprapatellar amorphous calcifications, also likely related to CPPD. Early vascular calcifications. XR/XR knee LT 4V IMPRESSION: 1. 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 2. Chondrocalcinosis present suggesting CPPD. 3. No joint effusion Electronically signed by: Derek Prado MD 11/23/2024 01:58 PM EDT
--- OUTSIDE RECORDS SUMMARY | 2024-11-20 13:46 | XMS_ITS | Encounter Summary ---
Author Organization [employer] Address [address] [facility] 7t [place] [address] Care Team Providers Care Elementary [employer] Science Teacher Name Role Phone Unavailable Primary Care Provider Unavailabl e Encounter Details Date Type Department Care Team (Latest Contact Info) Description 03/06/2021 Abstract [facility] CONVERSIONS Dental, Provider, DDS Social History [...] Description 03/29/2025 9:00 AM EDT Office Visit [facility] [address] [place] [address] Jolene Hope [address] [place] [address] documented as of this encounter Visit Diagnoses Not on filedocumented in this encounter
--- OUTSIDE RECORDS SUMMARY | 2024-11-20 13:46 | XMS_ITS | Encounter Summary ---
Author Organization [employer] Address [address] [facility] [address] [place] [address] Care Team Providers Care Instrument Room Technician Name Role Phone Unavailable Primary Care Provider [...] Description 03/29/2025 9:00 AM EDT Office Visit [facility] [address] [place], [place] [phone] Jolene Hope [address] [place], [place] [phone] documented as of this encounter Visit Diagnoses Not on filedocumented in this encounter
--- OUTSIDE RECORDS SUMMARY | 2024-11-20 13:46 | XMS_ITS | Encounter Summary ---
Author Organization [employer] Address [address] [facility] 7t [place] [address] Care Team Providers Care Computer Publisher Name Role Phone Unavailable Primary Care Provider Unavailabl e Encounter Details Date Type Department Care Team (Latest Contact Info) Description 01/13/2019 Abstract [facility] CONVERSIONS Dental, Provider, DDS Social History Tobacco [...] Description 03/29/2025 9:00 AM EDT Office Visit [facility] [address] [place], [place] [phone] Jolene Hope [address] [place] [address] documented as of this encounter Visit Diagnoses Not on filedocumented in this encounter
--- OUTSIDE RECORDS SUMMARY | 2024-11-20 13:46 | XMS_ITS | Encounter Summary ---
Author Organization [facility] Address [address] [place] [address] Care Team Providers Care Corporate Staff Accountant Name Role Phone Unavailable Primary Care Provider Unavailabl e Prior Encounters Date Type Department Care Team Description 09/07/2019 Converted 13x Documents [facility] [address] [place] [address] <No scans attached> 09/07/2019 Converted CPS Chart Documents [facility] [address], [facility] [address] [place] [phone] <No scans attached> 09/07/2019 Converted 13x Documents [facility] [address], [facility] [address] [place] [address] <No scans attached> Plan of Treatment Not on file Procedures Procedure Name Priority Date/Time Associated Diagnosis Comments NC X-RAY Routine 10/05/2019 1:00 AM MST 28 CORE BUILDUP, INCLUDING ANY PINS WHEN REQUIRED Routine 09/25/2019 1:00 AM MST 28 CEMENT CROWN Routine 09/25/2019 1:00 AM MST 28 ENDODONTIC THERAPY, PREMOLAR TOOTH (EXCLUDING FINAL HINDUISM) Routine 09/25/2019 1:00 AM MST 28 CEREC [...]
--- OUTSIDE RECORDS SUMMARY | 2024-11-20 13:46 | XMS_ITS | Clinical Summary ---
Author Organization [employer] Address [address] [place] [address] 7t [place] [address] Care Team Providers Care Machine Candle Molder Name Role Phone Unavailable Primary Care Provider Unavailabl e Allergies Active Allergy Reactions Criticality Noted Date Comments Sulfa Antibiotics Unknown 07/08/2017 Medications No known medications Encounters Date Type Department Care Team Description 09/08/2024 9:00 AM EST Office Visit [facility] [address] [place] [phone] Jolene Hope from Last 3 Months Social [...] Description 03/29/2025 9:00 AM EDT Office Visit [facility] [address] [place] [address] [phone] Jolene Hope [address] [place], [place] [phone] Health Maintenance Due Date Last Done Comments [...] FULL DENTAL - N FULL (MEDICAID) DENTAL [facility]
--- OUTSIDE RECORDS SUMMARY | 2024-11-20 13:46 | XMS_ITS | Clinical Summary ---
Author Organization [facility] Address [address] [place] [address] Care Team Providers Care Driver'S License Examiner Name Role Phone Unavailable Primary Care Provider [...]
== END 2024-11-20 09:30 | disposition home or self-care (01) ==
LOC: HO.XRAY 09:29
PROVIDERS: PCP Family Medicine; Visit Provider Nurse Practitioner Family
DX: M17.12 Unilateral primary osteoarthritis, left knee (principal); C61 Malignant neoplasm of prostate; Z19.1 Hormone sensitive malignancy status
CPT/HCPCS: 73564; 99212

== ENCOUNTER → 2024-11-20 11:50 | Outpatient (BNV) | payer MEDICARE, SELFPAY | PROVIDERS: PCP Family Medicine; Visit Provider Radiology Diagnostic Radiology | DX: M17.12 Unilateral primary osteoarthritis, left knee (principal) | CPT/HCPCS: 73564 ==

== ENCOUNTER 2024-11-24 09:55 | Outpatient (AMB) | payer MEDICARE, SELFPAY ==
--- NOTE | 2024-11-24 09:59 | A.OFFVIS_ITS ---
Intake Visit Reasons: 4m follow up PSA(labs?) Intake Note: Patient is present for 4M/PSA Urology Medication:NONE Antibiotic Allergy:SULFA Blood Thinner:NONE Bilingual Case Manager Required: No Allergies Sulfa (Sulfonamide Antibiotics) Allergy (Intermediate, Verified 11/24/24 10:01) Unknown Medication List - Last Reconciled 11/24/24 by Fred Rubin MD diclofenac sodium 1% (Arthritis Pain (diclofenac)) 4 grams topical BID 30 days HPI Comments Details: Forest is a pleasant male. He is a patient of Dr. Ren. He is seen for the following urologic conditions -prostate cancer Six-month follow-up PSA stable Discussed use of finasteride At this point continue to follow Q six-month Prostate cancer - 07/12 - grade group 1, NCCN ultra/low risk category 4.2023 PSA - 07/07 2.3, 03/11 4.7, 06/11 6.6 % free PSA 18%, 12/11 4.6 15% TRUS volume 65gm [id number] 07/12 PSA 6.6 Histologic type: Acinar adenocarcinoma Histologic grade: Moderately differentiated [place] score: 3+3=6 Tumor quantitation: Number cores positive: 5 ( LDL 4%, LL 25%, RMM 8%, RAL 4%, VARINDER 29%) Total number of cores: 12 Periprostatic fat inv.: Not identified Seminal vesicle inv.: Not identified Perineural inv.: Not identified LVI: Not identified PFSH Medical History (Reviewed 06/16/24 @ 10:05 by Tali Tillman [facility]) Stroke Inguinal hernia Surgical History Hx of inguinal hernia surgery History of knee surgery History of hand surgery Family History Mother Cancer Father Cardiovascular disease Social History Household Members: None Housing: Other Housing Other:: Mobile home 75 years or older and lives alone: No Alcohol intake: current Alcohol intake frequency: a few times a week Alcohol type: wine Patient Tobacco Use Status: Never used Tobacco e-Cigarette/Vaping Use: Never Used service: No Current occupational status: retired Current occupational exposures/hazards: No Cognitive needs: No Hearing needs: No Vision needs: No Review of Systems Const Denies chills and Denies fever(s) Card Reports no additional complaints and Denies syncope Resp Denies cough GI Denies abdominal pain and Denies heartburn Reports as per HPI and Denies change in libido Neuro Denies syncope Psych Denies change in libido Endo Denies change in libido Physical Exam Const General: cooperative, healthy appearing, comfortable and no acute distress Orientation/consciousness: patient oriented x3 HEENT Face and sinus: Yes normal facial exam Mouth: moist mucous membranes Neck Neck: Yes normal visual inspection, Yes full ROM and Yes trachea midline Chest Chest palpation & inspection: normal inspection of the chest Resp Effort & Inspection: normal respiratory effort, able to speak in complete sentences and no respiratory distress GI Inspection: Yes normal to inspection Back/Spine/Pelvis Cervical Spine: normal cervical lordosis Thoracic/Lumbar Spine: thoracic and lumbar spine normal to inspection Skin General skin exam: no rashes or lesions noted Neuro General: patient oriented x3, gait normal, tone normal and moves all extremities Extrem General: Yes normal to inspection and Yes capillary refill normal Assessment & Plan Assessment & Plan (1) Hormone sensitive prostate cancer: Code(s): C61 - Malignant neoplasm of prostate; Z19.1 - Hormone sensitive malignancy status Category: Medical Plan Four month follow-up imaging Orders: Orders MR Prostate wo/w con 4 Months R97.20 - Elevated prostate specific antigen [PSA], C61 - Malignant neoplasm of prostate, Z19.1 - Hormone sensitive malignancy status Testosterone, Total 4 Months C61 - Malignant neoplasm of prostate, Z19.1 - Hormone sensitive malignancy status Patient Instructions: This note is constructed using voice recognition software. While every effort has been made to ensure accuracy exercise physiologist errors may have been included. Imaging studies, laboratory and physical exam results were discussed and reviewed in detail. No major barriers to patient understanding were identified. An opportunity to ask questions regarding the treatment plan was provided. All questions were answered. The patient expressed understanding and agreement with the above treatment plan. The patient is aware they should contact our office by phone for worsening of their current condition or the appearance of new urologic symptoms. Compliance is encouraged with any medications and followup testing that is ordered. It is a privilege to participate in the urologic care of your patient. If you have any questions or concerns regarding treatment for the above conditions, or other urologic issues, please do not hesitate to contact me. The office telephone contact is [phone]. Sincerely, Dr Fred Rubin MD, [facility] - Urology Compassionate Specialist Care for the Genitourinary System Coding Level of Care Code Est Pt Level 3 (83947) Complex EM visit Add On G2211 Diagnoses Hormone sensitive prostate cancer C61; Z19.1
--- OUTSIDE RECORDS SUMMARY | 2024-11-24 11:28 | XMS_ITS | Encounter Summary ---
Author Organization [employer] Address [address] [place] [address] Care Team Providers Care Adjuster Piano Action Name Role Phone Unavailable Primary Care Provider Unavailabl e Encounter Details Date Type Department Care Team (Latest Contact Info) Description 03/06/2021 Abstract [facility] CONVERSIONS Dental, Provider, DDS Social History [...] Description 03/29/2025 9:00 AM EDT Office Visit [facility] [address] [place] [address] Jolene Hope [address] [place] [address] documented as of this encounter Visit Diagnoses Not on filedocumented in this encounter
--- OUTSIDE RECORDS SUMMARY | 2024-11-24 11:28 | XMS_ITS | Encounter Summary ---
Author Organization [employer] Address [address] [place] [address] Care Team Providers Care Permaculture Designer Name Role Phone Unavailable Primary Care Provider Unavailabl e Encounter Details Date Type Department Care Team (Latest Contact Info) Description 01/13/2019 Abstract [facility] CONVERSIONS Dental, Provider, DDS Social History [...] 9:00 AM EDT Office Visit [facility] [address] [place], [place] [phone] Jolene Hope [address] [place] [address] documented as of this encounter Visit Diagnoses Not on filedocumented in this encounter
--- OUTSIDE RECORDS SUMMARY | 2024-11-24 11:28 | XMS_ITS | Encounter Summary ---
Author Organization [facility] Address [address] [place] [address] Care Team Providers Care Nurse Practitioner Home Assessments Name Role Phone Unavailable Primary Care Provider Unavailabl e Prior Encounters Date Type Department Care Team Description 09/07/2019 Converted 13x Documents [facility] [address] [place] [phone] <No scans attached> 09/07/2019 Converted CPS Chart Documents [facility] [address], [facility] [address] [place] [phone] <No scans attached> 09/07/2019 Converted 13x Documents [facility] [address] [facility] [address] [place] [phone] <No scans attached> Plan of Treatment Not on file Procedures Procedure Name Priority Date/Time Associated Diagnosis Comments NC X-RAY Routine 10/05/2019 1:00 AM [facility] 28 CORE BUILDUP, INCLUDING ANY PINS WHEN REQUIRED Routine 09/25/2019 1:00 AM [facility] 28 CEMENT CROWN Routine 09/25/2019 1:00 AM [facility] 28 ENDODONTIC THERAPY, PREMOLAR TOOTH (EXCLUDING FINAL SCIENTOLOGY) Routine 09/25/2019 1:00 AM MST 28 CEREC [...]
--- OUTSIDE RECORDS SUMMARY | 2024-11-24 11:28 | XMS_ITS | Clinical Summary ---
Author Organization [facility] Address [address] [place] [address] Care Team Providers Care Electrical Electronics Engineers Name Role Phone Unavailable Primary Care Provider [...]
--- OUTSIDE RECORDS SUMMARY | 2024-11-24 11:28 | XMS_ITS | Clinical Summary ---
Author Organization [employer] Address [address] [place] [address] [address] [place] [address] Care Team Providers Care Assembler Ping Pong Table Name Role Phone Unavailable Primary Care Provider Unavailabl e Allergies Active Allergy Reactions Criticality Noted Date Comments Sulfa Antibiotics Unknown 07/08/2017 Medications No known medications Encounters Date Type Department Care Team Description 09/08/2024 9:00 AM EST Office Visit [facility] [address] [place] [phone] Jolene Hope from Last 3 Months Social [...] Description 03/29/2025 9:00 AM EDT Office Visit [facility] [address] [place] [address] [phone] Jolene Hope [address] [place], [place] [phone] Health Maintenance Due Date Last Done Comments [...] FULL DENTAL - N FULL (MEDICAID) DENTAL [facility]
--- OUTSIDE RECORDS SUMMARY | 2024-11-24 11:28 | XMS_ITS | Data Portability ---
Author Organization [facility], Home Service Address [address] [place] [address] Assessment Encounter Date Assessment Date Assessment LastModified [...] urinalysi s, dipstick 2018 019 abelanger 7 [facility], [address] [place] [address], [address], [place], [address], 9 10:22:21 CBC w/ auto diff 2018 RENEE Not available 9 08:16:28 CMP, serum or plasma 2018 RENEE Not available 9 08:16:27 hepatitis C Ab, serum 2018 abelanger 7 Not available 9 10:22:21 PSA, serum or plasma 2018 RENEE Not available 9 08:16:28 CBC w/ auto diff 2018 [facility], [address] [place] [address], [address], [place], [address], 9 08:25:27 culture, urine 2018 [facility], [address] [place] [address], [address], [place], [address], 9 08:25:27 erythrocy te sedimenta tion rate by westergre n method 2018 [facility], [address] [place] [address], [address], [place], [address], 9 08:25:27 lipid panel, blood 2017 018 RENEE Not available 8 08:06:53 CBC w/ auto diff 2017 RENEE Not available 8 08:06:53 CMP, serum or plasma 2017 RENEE Not available 8 08:06:53 urinalysi s, dipstick 2017 agatha [facility], [address] [place] [address], [address], [place], [address], 8 16:34:24 Referral physical therapist referral 2018 019 [facility], [address], [place], [address], 9 09:59:04 Procedures None recorded. Surgeries None recorded. Imaging US, testicle 2018 RENEE Not available 9 23:52:57 XR, shoulder 2017 018 RENEE Not available 8 08:44:48 XR, cervical spine, 2 or 3 view 2017 RENEE Not available 8 08:44:48 Medication Orders triamcino lone acetonide 0.1 % topical cream 2018 019 sbjuan pabloo [facility] [place], [address] [place], [address], 9 09:40:50 doxycycli ne hyclate 100 mg tablet 2018 019 sbucko [facility] [place], [address] [place], [address], 9 14:45:15 Medrol (Js) 4 mg tablets in a dose pack 2017 018 tbalicki [facility] [place], [address] [place], [address], 9 11:02:41 Patient TargetsNo targets recorded. Patient Instructions Encounter Date Encounter Id Patient Instructions Last Modified By Organization Details Last Modified Time 07/14/2018 [id number] rhythm strip, EKG* shahab Not available 07/21/2018 08:10:08 Discussed and explained advance directives such as standard forms to the {{patient caregiv er patient and caregiver}}. Face to face discussion lasted for a duration of ___ minutes. [email or web address] Not available 07/14/2018 14:56:29 09/01/2018 [id number] Call if any increased symptoms agatha Not available 09/01/2018 11:54:56 05/15/2019 [id number] sciatica: care instructions Not available 05/15/2019 14:30:34 07/13/2019 [id number] advance care planning: care instructions Not available [...] dipst ick Leukocytes Negati ve Not Available [facility] Internal [address], [address], 07/14/2018 15:45:13 07/14/20 18 07/14/2018 urina lysis , dipst ick Nitrite negati ve Not Available [address], [address], 07/14/2018 15:45:13 07/14/20 18 07/14/2018 urina lysis , dipst ick Urobilinogen .2 Not Available [facility] [address] [place], [address], 07/14/2018 15:45:13 07/14/20 18 07/14/2018 urina lysis , dipst ick Protein Negati ve Not Available [facility] [address] [place], [address], 07/14/2018 15:45:13 07/14/20 18 07/14/2018 urina lysis , dipst ick pH 6.5 Not Available [facility] [address] [facility], [place], [address], 07/14/2018 15:45:13 07/14/20 18 07/14/2018 urina lysis , dipst ick Blood Negati ve Not Available [facility] [address] [facility] [address], [place], [address], 07/14/2018 15:45:13 07/14/20 18 07/14/2018 urina lysis , dipst ick Specific [place] 1.015 Not Available [facility] [address] [facility] [address], [place], [address], 07/14/2018 15:45:13 07/14/20 18 07/14/2018 urina lysis , dipst ick Ketone Negati ve Not Available [facility] [address] [facility] [address], [place], [address], 07/14/2018 15:45:13 07/14/20 18 07/14/2018 urina lysis , dipst ick Bilirubin Negati ve Not Available [facility] [address] [facility] [address], [place], [address], 07/14/2018 15:45:13 07/14/20 18 07/14/2018 urina lysis , dipst ick Glucose Negati ve Not Available [facility] [address] [facility] [address], [place], [address], 07/14/2018 15:45:13 07/14/20 18 07/14/2018 urina lysis , dipst ick Appearance Clear Not Available [facility] [address] [facility] [address], [place], [address], 07/14/2018 15:45:13 07/14/20 18 07/14/2018 urina lysis , dipst ick Color Pale Yellow Not Available [facility] [address] [facility] [address], [place], [address], 07/14/2018 15:45:13 07/13/2007/13/2019 urina lysis , dipst ick Leukocytes Negati ve Not Available [facility] [address] [facility] [address], [place], [address], 07/13/2019 09:41:37 07/13/2007/13/2019 urina lysis , dipst ick Nitrite negati ve Not Available [facility] [address] [facility] [address], [place], [address], 07/13/2019 09:41:37 07/13/2007/13/2019 urina lysis , dipst ick Urobilinogen .2 Not Available [facility] [address] [facility] [address], [place], [address], 07/13/2019 09:41:37 07/13/2007/13/2019 urina lysis , dipst ick Protein Negati ve Not Available [facility] [address] [facility] [address], [place], [address], 07/13/2019 09:41:37 07/13/2007/13/2019 urina lysis , dipst ick pH 7.0 Not Available [facility] [address] [facility] [address], [place], [address], 07/13/2019 09:41:37 07/13/2007/13/2019 urina lysis , dipst ick Blood Negati ve Not Available [facility] [address] [facility] [address], [place], [address], 07/13/2019 09:41:37 07/13/2007/13/2019 urina lysis , dipst ick Specific [place] 1.020 Not Available [facility] [address] [facility] [address], [place], [address], 07/13/2019 09:41:37 07/13/2007/13/2019 urina lysis , dipst ick Ketone Negati ve Not Available [facility] [address] [facility] [address], [place], [address], 07/13/2019 09:41:37 07/13/20 19 07/13/2019 urina lysis , dipst ick Bilirubin Negati ve Not Available [facility] [address] [facility] [address], [place], [address], 07/13/2019 09:41:37 07/13/20 19 07/13/2019 urina lysis , dipst ick Glucose Negati ve Not Available [facility] [address] [facility] [address], [place], [address], 07/13/2019 09:41:37 07/13/20 19 07/13/2019 urina lysis , dipst ick Appearance Clear Not Available [facility] [address] [facility] [address], [place], [address], 07/13/2019 09:41:37 07/13/20 19 07/13/2019 urina lysis , dipst ick Color Yellow Not Available [facility] [address] [facility] [address], [place], [address], 07/13/2019 09:41:37 07/16/20 18 07/15/2018 XR, cervi quinn spine , 2 or 3 view No observ ation record ed. [facility] (Radiology) [address] [place], [address], 07/18/2018 09:21:40 07/16/20 18 07/15/2018 XR, shoul gurdeep No observ ation record ed. [facility] (Radiology) [address] [place], [address], 07/18/2018 09:21:40 09/02/19 19 09/02/2018 US, moreno bloom No observ ation record ed. [facility] [address] [facility], [place], [address], 04/27/2019 15:00:27 Result Notes None recorded. Problems Name Problem SNOMED Code Status Onset Date Resolution Date Notes Provider Name and Address Organization Details Recorded Time History of emphysem a 84023247728 418385 Active 2017 mild Chiquita galloway [facility] 8 12:04:24 Frostbit e 077507016 Active 2017 left great toe Chiquita galloway [facility] 8 12:04:50 Mobitz type II atrioven tricular block 58571505 Active 2017 cleaned by Kar Chiquita galloway [facility] 8 12:05:26 Seasonal allergy 877928700 Active 2017 Melyssa Plummer NP, S [address] [place] [address], [address], [facility] Internal [facility] 8 15:05:50 Problem Notes None recorded. Procedures Surgical History Date Name Laterality Status Provider Name and Address Organization Details Recorded Time 03/01/20 14 colonoscopy completed Melyssa Plummer NP, S [address] [place] [address], [address], [facility] 07/14/2018 15:11:36 08/19/18 68 operative procedure on knee completed [address], [address], [facility] 07/13/2019 10:12:06 08/19/18 67 Unlisted px hands/fingers completed [address], [address], [facility] 07/13/2019 10:12:31 Remove tonsils and adenoids completed [address], [address], [facility] 07/13/2019 10:12:44 repair of inguinal hernia completed [address], [address], [facility] 07/13/2019 10:13:02 Imaging Results Imaging Date Name Status LastModified by Organiz ation Details LastModified Time 07/15/2018 XR, cervical spine, 2 or 3 view completed [facility] (Radiology) [address] [place], [address], 07/18/2018 09:21:40 07/15/2018 XR, shoulder completed [facility] (Radiology) [address] [place], [address], 07/18/2018 09:21:40 09/02/2018 US, testicle completed [email or web address] [facility] [address] [place], [address], 04/27/2019 15:00:27 Procedure Notes None recorded. Medical Equipment None Reported. Allergies Allergen ID Allergen Name Allergen Category Reaction Reaction Severity Criticality Documentation Date Start Date Code Code System Note Provider Name and Address Organization Details Recorded Time 186 Substance with sulfonami de structure and antibacte rial mechanism of action (substanc e) medicatio n Not available Not available Not available 02/28/2018 07163 8003 SNOMED Melyssa Plummer NP, S [address] [place], [address], [facility] 8 15:05:10 2701 meclizine medicatio n Not available Not available Not available 09/01/2018 6676 RxNorm Chiquita Gallo [facility] Internal [facility] 9 11:02:37 Medications [...] Updated DateTime 9 177.17 cm 24.9 kg/m2 23930.6 1 g 71 /min 98 % 98 % Chelita Menezes [facility] 9 09:44:16 Date Recorded Systolic blood pressure Diastolic blood pressure Provider Name and Address Organization Details Last Updated DateTime 07/13/2019 122 mm[Hg] 70 mm[Hg] November [address], [address], [facility] 07/13/2019 10:21:59 Date Recorded Body height Body mass index (BMI) Body weight Heart rate Oxygen saturation Oxygen saturation in Arterial blood by Pulse oximetry Systolic blood pressure Diastolic blood pressure Provider Name and Address Organization Details Last Updated DateTime 8 177.17 cm 24.8 kg/m2 40129.1 7 g 72 /min 98 % 98 % 120 mm[Hg] 74 mm[Hg] Chiquita Gallo [facility] 8 15:00:35 Date Recorded Body height Body mass index (BMI) Body weight Oxygen saturation Oxygen saturation in Arterial blood by Pulse oximetry Heart rate Body temperature Systolic blood pressure Diastolic blood pressure Provider Name and Address Organization Details Last Updated DateTime 9 177.17 cm 25.6 kg/m2 75388.8 5 g 99 % 99 % 78 /min 98.1 [degF] 124 mm[Hg] 68 mm[Hg] Chiquita Cleo [facility] 9 11:04:04 Date Recorded Body height Body mass index (BMI) Body weight Heart rate Oxygen saturation Oxygen saturation in Arterial blood by Pulse oximetry Systolic blood pressure Diastolic blood pressure Provider Name and Address Organization Details Last Updated DateTime 9 177.17 cm 24.7 kg/m2 61039.9 4 g 70 /min 99 % 99 % 130 mm[Hg] 76 mm[Hg] Chelita Menezes [facility] 9 14:46:35 Date Recorded Body height Body mass index (BMI) Body weight Heart rate Oxygen saturation Oxygen saturation in Arterial blood by Pulse oximetry Systolic blood pressure Diastolic blood pressure Provider Name and Address Organization Details Last Updated DateTime 9 177.17 cm 24.6 kg/m2 89493.7 8 g 69 /min 98 % 98 % 110 mm[Hg] 80 mm[Hg] Chelita Menezes [facility] 9 14:16:22 Social History Question Answer Notes LastModified by Organizat ion Details LastModified Time Tobacco Smoking Status Never Smoker Chiquita Gallo [facility] Medicine 07/14/2018 14:59:21 Do [...] Diagnosis Note [id number] Melyssa Plummer NP, S [facility] [address] [facility],[place] [address] 02/28/2018 14:55:21 03/04/2018 08:06:35 On examination - rash present [id number] R21 [id number] Melyssa Plummer NP, [facility] [address] [facility],[place] [address] 07/14/2018 14:54:49 07/14/2018 15:46:20 Adult health examination 588797824 Z00.01 Screening for cardiovascular system disease 689340637 Z13.6 Pain in right arm 412440 004 M79.601 Atypical chest pain 1025 49926 R07.89 [id number] Melyssa Plummer NP, [facility] [address] [facility],[place] [address] 09/01/2018 10:52:36 09/01/2018 11:57:52 Pain in testicle 42853427 N50.819 [id number] Heydi [facility] [address] [facility],[place] [address] 04/27/2019 14:38:55 04/27/2019 15:14:55 Pain in right lower limb 817976227 M79.604 ? nerve impingemen t dvt very unlikely ibuprofen 800 mg tid prn has old oxycodone which is ok to take if in extreme pain [id number] November [facility] [address] [facility] [address] [address] 05/15/2019 14:07:20 05/15/2019 14:32:51 Pruritic rash 45555483 L28.2 Sciatica 80351654 M54[place] [id number] November [facility] [address] [facility] [address],[place] [address] 07/13/2019 09:34:50 07/13/2019 10:27:49 Adult health examination 039818648 Z00.00 HCP - sister - debbi mora Active or passive immunization 403975481 Z23 refuses flu shot ama Screening for cardiovascular system disease 318708563 Z13.6 Vitamin D deficiency 347 46126 E55.9 Cough 51529665 R05 has dry/troat clearing habit - just [...] Ramos Member ID Guarantor Name 07/14/2018 1 [facility] (MEDICARE REPLACEMENT/ ADVANTAGE - HMO) [id number] Forest Marks [id number] Forest Marks 09/01/2018 1 [facility] (MEDICARE REPLACEMENT/ ADVANTAGE - HMO) [id number] Forest Marks [id number] Forest Marks 04/27/2019 1 [facility] (MEDICARE REPLACEMENT/ ADVANTAGE - HMO) [id number] Forest Marks [id number] Forest Marks 05/15/2019 1 [facility] (MEDICARE REPLACEMENT/ ADVANTAGE - HMO) [id number] Forest Marks [id number] Forest Marks 07/13/2019 1 [facility] (MEDICARE REPLACEMENT/ ADVANTAGE - HMO) [id number] Forest Marks [id number] Forest Marks Notes Date Note Type Note [...] associated symptoms Melyssa Plummer NP, S [address] [place], [address], [facility] 07/14/2018 16:35:01 9 text/html Hx: orchiditis Some recent ( 1 week ) on/off testicular discomfort ( 2 or 3 on pain scale ) More on left side No penile discharge, no rash No fever Denies back, abdominal pain, minimal suprapubic discomfort No hematuria, No BRBPR Melyssa Plummer NP, S [address] [place], [address], [facility] 09/01/2018 11:55:11 9 text/html c/o pain in the hamstring area for 1 week, but no injury, just woke up with some tension initially played 11 games of [employer] ball yesterday and also has tightness in [...] than when sitting longest drive was to [place], but the pain preceded this trip has [...] rashes, or nail changes. SUE Finn [address] [place], [address], [facility] 04/27/2019 15:11:32 9 text/html [...] rashes, or nail changes. Heydi [facility] [address] [place] [address], [address], [facility] 05/18/2019 13:40:00 9 [...] good lighting in the home SUE Finn [address] [place] [address], [address], [facility] 07/13/2019 10:27:14
--- OUTSIDE RECORDS SUMMARY | 2024-11-24 11:28 | XMS_ITS | Encounter Summary ---
Author Organization [employer] Address [address] [place] [address] Care Team Providers Care Vice President Business & Corporate Development Name Role Phone Unavailable Primary Care Provider [...] Description 03/29/2025 9:00 AM EDT Office Visit [facility] [address] [place], [place] [phone] Jolene Hope [address] [place], [place] [phone] documented as of this encounter Visit Diagnoses Not on filedocumented in this encounter
== END 2024-11-24 11:03 | disposition home or self-care (01) ==
PROVIDERS: PCP Family Medicine; Visit Provider Urology
DX: C61 Malignant neoplasm of prostate (principal); Z19.1 Hormone sensitive malignancy status
CPT/HCPCS: 99213; G2211

== ENCOUNTER → 2024-11-24 09:55 | Outpatient (BNVA) | payer MEDICARE, SELFPAY | PROVIDERS: PCP Family Medicine; Visit Provider Urology | DX: C61 Malignant neoplasm of prostate (principal); Z19.1 Hormone sensitive malignancy status | CPT/HCPCS: 99212 ==

== ENCOUNTER 2025-02-05 11:57 | Outpatient (AMB) | payer MEDICARE, SELFPAY ==
--- NOTE | 2025-02-05 12:02 | A.OFFPC_ITS ---
Intake Visit Reasons: Physical - see comments Intake Note: Forest presents in the office today for his medical wellness exam. Allergies Sulfa (Sulfonamide Antibiotics) Allergy (Intermediate, Verified 02/05/25 12:07) Unknown Tobacco use date assessed: 02/05/25 Fall risk assessment: No Falls in past year Last assessed Fall Risk: 02/05/25 Dental Screening Dental Screen Date: 02/05/25 Did you have a dental visit in the last 12 months?: Yes Did you have a dental problem in the last 6 months where you did not have access to dental care?: No Was dental information given to patient?: Patient has dentist [facility] Medical History Stroke Inguinal hernia Surgical History Hx of inguinal hernia surgery History of knee surgery History of hand surgery Family History Mother Cancer Father Cardiovascular disease Social History Household Members: None Housing: Other Housing Other:: Mobile home 75 years or older and lives alone: No Alcohol intake: current Alcohol intake frequency: a few times a week Alcohol type: wine Patient Tobacco Use Status: Never used Tobacco e-Cigarette/Vaping Use: Never Used service: No Current occupational status: retired Current occupational exposures/hazards: No Cognitive needs: No Hearing needs: No Vision needs: No Questionnaire Thrive Questionnaire Date Thrive assessed: 08/20/24 I am a: Patient What is your living situation today?: I have a steady place to live Within the past 12 months, did the food you bought not last and you didn't have the money to get more?: Never true Within the past 12 months, did you worry whether your food would run out before you got money to buy more?: Never true Do you have trouble paying for medicines?: No Do you have trouble getting transportation to medical appointments?: No Do you have trouble paying your heating and electricity bill?: No Do you have trouble taking care of your child, family member or friend?: No Do you have trouble with day-to-day activities such as bathing, preparing meals, shopping, managing finances, etc.?: No Are you currently unemployed and looking for a job?: I choose not to answer this question Are you interested in more education?: I choose not to answer this question Please select the resources that you would like help with: Utilities Currently or been in a relationship where the following occur: No concerns reported THRIVE Score: 0 AAMIR-7 AMB Questionnaire AAMIR-7 Date AAMIR - 7 assessed: 01/31/24 Source: Developed by Drs. Derrick Garcia, Sirena Whitlock, Moo Lynn and colleagues, with an educational maycol from [employer]. Physical exam (Primary Care) Tobacco/Smoking Status: Tobacco use Status Tobacco use date assessed 12/02/23 09/03/24 10:01 Patient Tobacco Use Status Never used Tobacco 11/20/24 10:27 e-Cigarette/Vaping Use Never Used 09/03/24 10:01 Thrive Assessment: Date of Thrive Assessment Date Thrive assessed 08/20/24 11/18/24 10:31 Currently or been in a relationship where the following occur: No concerns reported Coding
--- NOTE | 2025-02-05 12:09 | AM.OFFVISMDC ---
Intake Vital Signs 02/05/25 12:23 Height 5 ft 11 in Weight 161 lb BMI 22.5 BP 116/72 Blood Pressure Location Rt brachial Position Sitting Respiration 14 Pulse 70 Pulse Source Pulse Oximeter Temp 97.9 F Temp Source Temporal Artery Scan Pulse Oximetry (%) 96 Oxygen Delivery Method Room Air Intake Visit Reasons: Physical - see comments Allergies Sulfa (Sulfonamide Antibiotics) Allergy (Intermediate, Verified 02/05/25 12:29) Unknown Medication List - Last Reconciled 02/05/25 [facility] No Known Home Meds HPI HPI Comments History of Present Illness Details Here today for AWV. The Medicare Annual Wellness Visit (AWV) is a yearly appointment with a health professional to identify health risks and help reduce them and to create or update a personalized prevention plan. During a Medicare AWV, health professionals should also review any current opioid prescriptions, detect any cognitive impairment, and establish or update medical and family history. 73-year-old male with carpal tunnel syndrome, day Quervain's tenosynovitis, CVA 12/2022, prostate Ca (06/2024) SurgHx: Y FHx: Y SocHx: Y Health Maintenance: See scanned preventative medicine assessment with personalized health plan and screening schedule. Colon: + cologaurd 2023 Vaccines Tdap 2022, declined all other vaccines AAA screen: NA EKG: done today, NSR elena A1c 5.5% [facility] Care: [facility] Visual Acuity: routine eye exams, no issues Hearing Screening: would ACP: has HCP and [facility] Dietary/Nutrition/Exercise Edu provided: Y During the course of the visit the patient was educated and counseled about appropriate screening and preventative services. Patient instructions were provided to the patient in written or electronic format. I have reviewed and verified the above information. Here today for AWV and routine fu c/o pain L great toe, started 1 month ago, better since onset, toe was red, hurt to touch, rated pain 3-8/10 no home treatment, no known injury wonders if its gout has never had that before Unintentional wt loss 10 lbs in 1 month w/o no change I reminded him of a + cologaurd that he declined fu on last year That paired with prostate ca that is only being treated w/ limiting red meat and dairy (his choice) is a grave concern. He agrees and is willing to see GI at this time c/o RODOLFO cole, would like hearing exam His ortho concerns are not a current issue Interested in labs but not today. Exam General: Well developed, well nourished, in no acute distress. Appears stated age. Head: Normocephalic, atraumatic. Eyes: Pupils are equal, round and reactive to light and accommodation. Conjunctivae are clear. Vision grossly normal. Ears: TMs clear AU, EACS WNL Nose: Patent, without discharge. Mouth: There are no ulcers or lesions noted. No inflammation, no post nasal drip, no plaques nor exudates. Neck: Supple, no adenopathy or thyromegaly. Lungs: Clear to auscultation bilaterally. No rales, rhonchi or wheeze noted. Good air flow in all pablo. Heart: Regular rate and rhythm. 2/6 murmurs, click, rubs or gallops are noted. Abdomen: Bowel sounds present in all quadrants. The abdomen is soft, nontender, with no masses or organomegaly noted. No hernias are noted. Musculoskeletal: Joints are nontender, without swelling, redness, or effusions. Range of motion is observed to be normal. Arthritis appearing joints Pulses: Peripheral pulses are equal and palpable bilaterally. Extremities: No clubbing, cyanosis nor edema is noted. Neurologic: Gait and station normal. Cranial Nerves 2-12 intact. Motor strength grossly symmetrical and intact. No sensory loss. Balance normal. Skin: No rashes, ulcers, or lesions noted. Turgor is good. Skin color is good. . healing skin tears to bilat anterior lower leg. fungal toe nails -all, tenderness around cuticle L, no pus, no fluctuence, toe does not appear to have gout. Psych: Normal eye contact, affect and mood appropriate, and normal interactions. Patient is alert and appropriate to context. Plan Refer to GI Stat Audio for hearing test Labs Has already seen pod. for toe nails; wants to pursue conservatively, start epsom salt soaks and topical mupiricon, edu on reasons to seek addl care FU with [facility] RTO 6 months, routine f/u Dr Ritchie, PCP An additional 30 minutes was spent addressing the problem(s) noted at todays visit. This includes time spent before the visit reviewing the chart, time spent during the visit, and time spent after the visit on documentation reviewing laboratory results, diagnostic imaging, medications, performing a medically necessary evaluation, counseling on diagnoses, care coordination, ordering appropriate tests, ordering appropriate medications, review of tests performed by other providers, reporting test results with the patient, communication with other healthcare providers. [facility] Medical History Stroke Inguinal hernia Surgical History Hx of inguinal hernia surgery History of knee surgery History of hand surgery Family History (Updated 02/05/25 @ 12:10 by Addie Flores MA) Mother Cancer Father Cardiovascular disease Social History (Updated 02/05/25 @ 12:11 by Addie Flores MA) Household Members: None Housing: Other Housing Other:: Mobile home Alcohol intake: current Alcohol intake frequency: a few times a week Alcohol type: wine Patient Tobacco Use Status: Never used Tobacco e-Cigarette/Vaping Use: Never Used Second Hand Smoke Exposure: No service: No Current occupational status: retired Current occupational exposures/hazards: No Cognitive needs: No Hearing needs: No Vision needs: No Questionnaire Medicare Wellness Checkup What [age] your [age]?: [age] What gender do you identify with?: male During the past 4 weeks, how much have you been bothered by emotional problems such as feeling anxious, depressed, irritable, sad or downhearted, and blue?: not at all During the past 4 weeks, has your physical & emotional health limited your social activities with family, friends, neighbors, or groups?: not at all During the past 4 weeks, how much bodily pain have you generally had?: very mild pain During the past 4 weeks, was someone available to help you if you needed & wanted help?: yes, as much as I wanted During the past 4 weeks, what was the hardest physical activity you could do for at least 2 minutes?: heavy (Work) Can you get to places out of walking distance without help? (For eg., can you travel alone on buses, taxis or drive your car?): Yes Can you go shopping for groceries or clothes without someone's help?: Yes Can you prepare your own meals?: Yes Can you do your housework without help?: Yes Because of any health problems, do you need the help of another person with your personal care needs such as eating, bathing, dressing or getting around the house?: No Can you handle your own money without help?: Yes During the past 4 weeks, how would you rate your health in general?: very good During the past 4 weeks how have things been going for you?: very well; could hardly better Are you having difficulties driving your car?: no Do you always fasten your seat belt when you are in a car?: yes, usually During past 4 weeks, have you been bothered by the following: never: Falling or dizzy when standing up (Patient has vertigo), Trouble eating well?, Teeth or denture problems?, Problems using the telephone? and Tiredness or fatigue? and seldom: Sexual problems? Have you fallen 2 or more times in the past year?: No Are you afraid of falling?: Yes Are you a smoker?: no During the past 4 weeks, how many drinks of wine, beer, or other alcoholic beverages did you have?: 2-5 drinks per week Do you exercise for about 20 minutes 3 or more times a week?: yes, all the time Have you been given information to help with the following?: no: Hazards in your house that might hurt you? and no: Keeping track of your medications? How often do you have trouble taking medicines the way you have been told to take them?: I do not have to take medicine How confident are you that you can control & manage most of your health problems?: very confident What is your race?: White Mini Mental State Exam (MMSE) Orientation What is the (year) (season) (date) (day) (month)?: year, season, date, day and month Where are we (state) (county) (town or city) (hospital) (floor)?: state, county, town or city, hospital/clinic and floor Registration Name of 3 unrelated objects clearly and slowly, then ask patient to repeat all 3 of them. (1st repeat determines score. Make sure they can repeat all three): object 1, object 2 and object 3 Attention & Calculation (CHOOSE ONE) Ask pt to begin with 100 & count backward by 7. Stop after 5 repeats. If pt cannot ask them to spell the word WORLD backward.: 93, 86, 79, 72 and 65 Spell WORLD backwards (DLROW): 5 letters Recall Ask patient to repeat the 3 items from question #3.: object 1, object 2 and object 3 Language Show patient a wristwatch & ask what it is. Repeat for pencil.: watch Ask the patient to repeat the phrase 'No ifs, ands, or buts' after you.: correct Ask the patient to 'take a piece of paper with their right hand' 'fold paper in half' 'place paper on floor': take paper in right hand, fold paper in half and place paper on floor Print the sentence 'CLOSE YOUR EYES' on a piece. If patient actually closes eyes then score.: followed written direction Give patient a blank piece of paper & ask to write a sentence. Score if it contains a noun & verb.: sentence contains subject and verb Score Score: 33 Activity of Daily Living Bathing - sponge bath, tub bath or shower: receives no assistance (gets in/out by self, if usual bathing means Dressing - getting clothes from closets & drawers, including inner/outer garments & fasteners.: gets clothes & gets completely dressed without help Toileting - going to the 'toilet room' for urine/bowel elimination & cleaning self/arranging clothes: goes to toilet room, cleans self, arranges clothes without help Transfer: moves in & out of bed and chair without help (may use support object) Continence: controls urination/bowel movements completely by self Feeding: feeds self without help Total Score: 0 Information obtained from: patient Using telephone: independent Traveling: independent Shopping: independent Preparing meals: independent Housework: independent Taking medicine: independent Managing money: independent PHQ-9 Over the last 2 weeks, how often have you been bothered by any of the following problems? 1. Little interest or pleasure in doing things: not at all 2. Feeling down, depressed, or hopeless: not at all 3. Trouble falling or staying asleep, or sleeping too much: not at all 4. Feeling tired or having little energy: not at all 5. Poor appetite or overeating: not at all 6. Feeling bad about yourself - or that you are a failure or have let yourself or your family down: not at all 7. Trouble concentrating on things, such as reading the newspaper or watching television: not at all 8. Moving or speaking so slowly that other people could have noticed. Or the opposite - being so fidgety or restless that you have been moving around a lot more than usual: not at all 9. Thoughts that you would be better off or of hurting yourself in some way: not at all Total score: 0 Depression Screening Interpretation: Negative Depression Screening Done: Yes 18896 - PHQ-9 Billing: Yes Source: Developed by Drs. Derrick Garcia, Sirena Whitlock, Moo Lynn and colleagues, with an educational maycol from [email or web address] ([employer]). Physical Exam Vital Signs: Last Vital Signs Temp 97.9 F 02/05/25 12:23 Pulse 70 02/05/25 12:23 Resp 14 02/05/25 12:23 BP 116/72 02/05/25 12:23 Pulse Ox 96 02/05/25 12:23 Oxygen Delivery Method Room Air 02/05/25 12:23 BMI result Body Mass Index 22.5 Office Procedures EKG [id number], Complete Vision Screening Right Eye: 20/25 Left Eye: 20/20 Bilateral: 20/20 Color: Pass Corrected: Pass Steropsis: Pass Overall Vision Screening Results: Pass [id number] - Vision Screening EKG Details: entered twice in error, please only bill one time [id number], Complete Vision Screening [id number] - Vision Screening Results AMB Hemoglobin A1c AMB Hemoglobin A1c 5.5 % Last Edit by Addie Flores MA on 02/05/25 12:51 Results Reviewed Results Reviewed: Laboratory Last Values Hgb A1c (Clinic) 5.5 % (4.0-6.0) 02/05/25 12:48 Assessment & Plan Assessment & Plan (1) Encounter for subsequent annual wellness visit (AWV) in Medicare patient: Onset Date: ~02/05/25 Code(s): Z00.00 - Encounter for general adult medical examination without abnormal findings (2) Positive colorectal cancer screening using Cologuard test: Comment: 07/2024 pt referred to GI and declined f/u He is aware of + results Code(s): R19.5 - Other fecal abnormalities (3) Unintentional weight loss: Code(s): R63.4 - Abnormal weight loss (4) Screening for colon cancer: Code(s): Z12.11 - Encounter for screening for malignant neoplasm of colon (5) Hormone sensitive prostate cancer: Code(s): C61 - Malignant neoplasm of prostate; Z19.1 - Hormone sensitive malignancy status (6) Hearing loss: Code(s): H91.90 - Unspecified hearing loss, unspecified ear Qualifiers: Hearing loss type: unspecified Laterality: bilateral Qualified Code(s): H91.93 - Unspecified hearing loss, bilateral (7) BPPV (benign paroxysmal positional vertigo): Comment: . Code(s): H81.10 - Benign paroxysmal vertigo, unspecified ear Qualifiers: Laterality: bilateral Qualified Code(s): H81.13 - Benign paroxysmal vertigo, bilateral (8) Onychomycosis: Code(s): B35.1 - Tinea unguium (9) Paronychia of toe of left foot: Code(s): L03.032 - Cellulitis of left toe Plan / Orders: Orders AMB Vision Screening Today Z01.00 - Encounter for examination of eyes and vision without abnormal findings AMB EKG-In Office Today Z13.6 - Encounter for screening for cardiovascular disorders AMB Hemoglobin A1c Today Z13.1 - Encounter for screening for diabetes mellitus, Z13.9 - Encounter for screening, unspecified Vitamin B12 and Folate Today C61 - Malignant neoplasm of prostate, R19.5 - Other fecal abnormalities, R63.4 - Abnormal weight loss, Z00.00 - Encounter for general adult medical examination without abnormal findings, Z12.11 - Encounter for screening for malignant neoplasm of colon, Z19.1 - Hormone sensitive malignancy status Complete Blood Count Man Dif Today C61 - Malignant neoplasm of prostate, R19.5 - Other fecal abnormalities, R63.4 - Abnormal weight loss, Z00.00 - Encounter for general adult medical examination without abnormal findings, Z12.11 - Encounter for screening for malignant neoplasm of colon, Z19.1 - Hormone sensitive malignancy status Comprehensive Met. Panel Today C61 - Malignant neoplasm of prostate, R19.5 - Other fecal abnormalities, R63.4 - Abnormal weight loss, Z00.00 - Encounter for general adult medical examination without abnormal findings, Z12.11 - Encounter for screening for malignant neoplasm of colon, Z19.1 - Hormone sensitive malignancy status Ferritin Today C61 - Malignant neoplasm of prostate, R19.5 - Other fecal abnormalities, R63.4 - Abnormal weight loss, Z00.00 - Encounter for general adult medical examination without abnormal findings, Z12.11 - Encounter for screening for malignant neoplasm of colon, Z19.1 - Hormone sensitive malignancy status IRON PROFILE Today C61 - Malignant neoplasm of prostate, R19.5 - Other fecal abnormalities, R63.4 - Abnormal weight loss, Z00.00 - Encounter for general adult medical examination without abnormal findings, Z12.11 - Encounter for screening for malignant neoplasm of colon, Z19.1 - Hormone sensitive malignancy status Lipid Panel Today C61 - Malignant neoplasm of prostate, R19.5 - Other fecal abnormalities, R63.4 - Abnormal weight loss, Z00.00 - Encounter for general adult medical examination without abnormal findings, Z12.11 - Encounter for screening for malignant neoplasm of colon, Z19.1 - Hormone sensitive malignancy status Microalbumin, Random (w Creat) Today C61 - Malignant neoplasm of prostate, R19.5 - Other fecal abnormalities, R63.4 - Abnormal weight loss, Z00.00 - Encounter for general adult medical examination without abnormal findings, Z12.11 - Encounter for screening for malignant neoplasm of colon, Z19.1 - Hormone sensitive malignancy status TSH reflex Free T4 Today C61 - Malignant neoplasm of prostate, R19.5 - Other fecal abnormalities, R63.4 - Abnormal weight loss, Z00.00 - Encounter for general adult medical examination without abnormal findings, Z12.11 - Encounter for screening for malignant neoplasm of colon, Z19.1 - Hormone sensitive malignancy status Vitamin D 25-OH Total Today C61 - Malignant neoplasm of prostate, R19.5 - Other fecal abnormalities, R63.4 - Abnormal weight loss, Z00.00 - Encounter for general adult medical examination without abnormal findings, Z12.11 - Encounter for screening for malignant neoplasm of colon, Z19.1 - Hormone sensitive malignancy status Referrals Gastroenterology Referral R19.5 - Other fecal abnormalities, R63.4 - Abnormal weight loss Audiology Referral H91.90 - Unspecified hearing loss, unspecified ear Medications: New mupirocin calcium 2% 1 appl topical BID 15 grams 0RF Patient Instructions: Health screenings for men You should visit your health care provider regularly, even if you feel healthy. The purpose of these visits is to: Screen for medical issues Assess your risk for future medical problems Encourage a healthy lifestyle Update vaccinations and other preventive care services Help you get to know your provider in case of an illness Information Even if you feel fine, you should still see your provider for regular checkups. These visits can help you avoid problems in the future. For example, the only way to find out if you have high blood pressure is to have it checked regularly. High blood sugar and high cholesterol level also may not have any symptoms in the early stages. Simple blood tests can check for these conditions. There are specific times when you should see your provider or receive specific health screenings. The [place] Preventive Services Task Force publishes a list of recommended screenings. Below are screening guidelines for men ages 40 to 64. BLOOD PRESSURE SCREENING Have your blood pressure checked at least once every year. Watch for blood pressure screenings in your area. Ask your provider if you can stop in to have your blood pressure checked. Ask your provider if you need your blood pressure checked more often if: You have diabetes, heart disease, kidney problems, or are overweight or have certain other health conditions You have a first-degree relative with high blood pressure You are Black Your blood pressure top number is from 120 to 129 mm Hg, or the bottom number is from 70 to 79 mm Hg If the top number is 130 mm Hg or greater or the bottom number is 80 mm Hg or greater, this is considered stage 1 hypertension. Schedule an appointment with your provider to learn how you can lower your blood pressure. Effects of age on blood pressure CHOLESTEROL SCREENING Cholesterol screening should begin at age 35 for men with no known risk factors for coronary heart disease. Repeat cholesterol screening should take place: Every 5 years for men with normal cholesterol levels More often if changes occur in lifestyle (including weight gain and diet) More often if you have diabetes, heart disease, kidney problems, or certain other conditions COLORECTAL CANCER SCREENING If you are under age 45, talk to your provider about getting screened. You may need to be screened if you have a strong family history of colon cancer or polyps. Screening may also be considered if you have risk factors such as a history of inflammatory bowel disease or polyps. If you are age 45 to 75, you should be screened for colorectal cancer. There are several screening tests available: A stool-based fecal occult blood (gFOBT) or fecal immunochemical test (FIT) every year A stool sDNA test every 1 to 3 years Flexible sigmoidoscopy every 5 years or every 10 years with stool testing FIT done every year CT colonography (virtual colonoscopy) every 5 years Colonoscopy every 10 years You may need a colonoscopy more often if you have risk factors for colorectal cancer, such as: Ulcerative colitis A personal or family history of colorectal cancer A history of growths in your colon called adenomatous polyps DENTAL EXAM Go to the dentist once or twice every year for an exam and cleaning. Your dentist will evaluate if you have a need for more frequent visits. DIABETES SCREENING All adults who do not have risk factors for diabetes should be screened starting at age 35 and repeated every 3 years. If you have other risk factors for diabetes, such as a first degree relative with diabetes, overweight or obesity, high blood pressure, prediabetes, or a history of heart disease, you may be tested more often. If you are overweight and have other risk factors, such as high blood pressure and are planning to become , screening is recommended. EYE EXAM Have an eye exam every 2 to 4 years ages 40 to 54 and every 1 to 3 years ages 55 to 64. Your provider may recommend more frequent eye exams if you have vision problems or glaucoma risk. Have an eye exam that includes an examination of your retina (back of your eye) at least every year if you have diabetes. IMMUNIZATIONS Commonly needed vaccines include: Flu shot: get one every year COVID-19 vaccine: ask your provider what is best for you Tetanus-diphtheria and acellular pertussis (Tdap) vaccine: have as one of your tetanus-diphtheria vaccines if you did not receive it as an adolescent Tetanus-diphtheria: have a booster (or Tdap) every 10 years Varicella vaccine: receive 2 doses if you never had chickenpox or the varicella vaccine and were born in 1980 or after Hepatitis B vaccine: receive 2, 3, or 4 doses, depending on your exact circumstances, if you did not receive these as a child or adolescent, until age 59 Shingles (herpes zoster) vaccine: at or after age 50 Ask your provider if you should receive other immunizations, especially if you have certain medical conditions, such as diabetes or are at increased risk for some diseases such as pneumonia. INFECTIOUS DISEASE SCREENING Screening for hepatitis C: all adults ages 18 to 79 should get a one-time test for hepatitis C. Screening for human immunodeficiency virus (HIV): all people ages 15 to 65 should get a one-time test for HIV. Depending on your lifestyle and medical history, you may need to be screened for infections such as syphilis, chlamydia, and other infections. LUNG CANCER SCREENING You should have an annual screening for lung cancer with low-dose computed tomography (LDCT) if: You are age 50 to 80 years AND You have a 20 pack-year smoking history AND You currently smoke or have quit within the past 15 years OSTEOPOROSIS SCREENING If you are age 50 to 64 and have risk factors for osteoporosis, you should discuss screening with your provider. Risk factors can include long-term steroid use, low body weight, smoking, heavy alcohol use, having a fracture after age 50, or a family history of hip fracture or osteoporosis. Osteoporosis PHYSICAL EXAM All adults should visit their provider from time to time, even if they are healthy. The purpose of these visits is to: Screen for diseases Assess risk of future medical problems Encourage a healthy lifestyle Update vaccinations and other preventive care services Maintain a relationship with a provider in case of an illness Your height, weight, and body mass index (BMI) should be checked at every exam. During your exam, your provider may ask you about: Depression and anxiety Diet and exercise Alcohol and tobacco use Safety, such as use of seat belts and smoke detectors Your medicines and risk for interactions PROSTATE CANCER SCREENING If you're 55 through 69 years old, before having the test, talk to your provider about the pros and cons of having a PSA test. Ask about: Whether screening decreases your chance of dying from prostate cancer. Whether there is any harm from prostate cancer screening, such as side effects from testing or overtreatment of cancer when discovered. Whether you have a higher risk of prostate cancer than others. If you are age 55 or younger, screening is not generally recommended. You should talk with your provider about if you have a higher risk for prostate cancer. Risk factors include: Having a family history of prostate cancer (especially a brother or father) Being If you choose to be tested, the PSA blood test is repeated over time (yearly or less often), though the best frequency is not known. Prostate examinations are no longer routinely done on men with no symptoms. Prostate cancer SKIN EXAM Your provider may check your skin for signs of skin cancer, especially if you're at high risk. People at high risk include those who have had skin cancer before, have close relatives with skin cancer, or have a weakened immune system. TESTICULAR EXAM The US Preventive Services Task Force (USPSTF) now recommends against performing testicular self-exams. Doing testicular self-exams has been shown to have little to no benefit. Quality Reporting (2020) Adult ([facility] 138/2/69) Smoking risk assessment performed?: Yes Patient Tobacco Use Status: Never used Tobacco Depression screening performed: Yes Screen Results: Yes Negative screen Systolic BP not done?: No Diastolic BP not done?: No BMI screening not done: No Sexual Activity Screening ([facility] 153) Sexually active?: Yes Immunizations ([facility] 147, 117) Annual Influenza Vaccine: No Measles Antibody Test: No Mumps Antibody Test: No Rubella Antibody Test: No Varicella Antibody Test: No Anti Hepatitis A IgG Antigen test: No Anti Hepatitis B Virus Surface Ab test: No Fall Risk Screening ([facility] 139) Last assessed Fall Risk: 02/05/25 Fall risk assessment: No Falls in past year Dementia Assessment ([facility] 149) Cognitive assessment recorded: Yes Assessment of cognition with standardized tool: Yes Depression/Bipolar (159/160/161/177) PHQ-9: Total score: 0 Ophthalmol:Cataracts Visual Acuity (133) Visual acuity exam performed: Yes (see results) Coding Level of Care Code Medicare Subsequent (G0439) Est Pt Level 4 (41599) Diagnoses Encounter for subsequent annual wellness visit (AWV) in Medicare patient Z00.00 Positive colorectal cancer screening using Cologuard test R19.5 Unintentional weight loss R63.4 Screening for colon cancer Z12.11 Hormone sensitive prostate cancer C61; 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 Bilateral hearing loss, unspecified hearing loss type H91.93 Hearing loss type: unspecified Laterality: bilateral 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 Laterality: bilateral Onychomycosis B35.1 Paronychia of toe of left foot L03.032 CPT Codes Advance Care Planning - Time spent: 1-15 minutes, not on file ([id number]) EKG - CPT: 27608-Ykjbjqpwqbhaalxts, Complete ([id number]) Vision Screening - Vision Screenin - Vision Screening ([id number]) EKG - CPT: 47786-Dvmqadngoayuaidaw, Complete ([id number]) Vision Screening - Vision Screenin - Vision Screening ([id number]) Additional Codes PHQ-9 - 62762 - PHQ-9 Billing: Yes ([id number]) Advance Care Planning Advance Care Planning discussion: Exists, not on file Date of discussion: 02/05/25 Forms completed: Health Care Proxy, MOLST and Living will Time spent: 1-15 minutes, not on file Actual minutes spent: 5
--- OUTSIDE RECORDS SUMMARY | 2025-02-05 12:11 | XMS_ITS | Encounter Summary ---
Author Organization [employer] Address [address] [facility] 7t [place] [address] Care Team Providers Care Family Engagement Specialist Name Role Phone Unavailable Primary Care Provider [...] 9:00 AM EDT Office Visit [facility] ADULT DENTAL [address] [place] [address] Jolene Hope [address] [place], [place] [phone] documented as of this encounter Visit Diagnoses Not on filedocumented in this encounter
[2025-02-05 12:23] VITALS: BP 116/72; PULSE 70; RESP 14; TEMP 36.6; O2SAT 96; BMI 22.5
== END 2025-02-05 13:13 | disposition home or self-care (01) ==
LOC: HO.HMCFM 11:58
PROVIDERS: PCP Family Medicine; Visit Provider Nurse Practitioner Family
DX: Z00.00 Encounter for general adult medical examination without abnormal findings (principal); C61 Malignant neoplasm of prostate; R19.5 Other fecal abnormalities; R63.4 Abnormal weight loss; Z12.11 Encounter for screening for malignant neoplasm of colon; Z19.1 Hormone sensitive malignancy status; H91.93 Unspecified hearing loss, bilateral; H81.13 Benign paroxysmal vertigo, bilateral; B35.1 Tinea unguium; L03.032 Cellulitis of left toe; Z13.1 Encounter for screening for diabetes mellitus

== ENCOUNTER → 2025-02-05 11:57 | Outpatient (BNVA) | payer MEDICARE, SELFPAY | PROVIDERS: PCP Family Medicine; Visit Provider Nurse Practitioner Family | DX: Z00.01 Encounter for general adult medical examination with abnormal findings (principal); Z13.1 Encounter for screening for diabetes mellitus; R19.5 Other fecal abnormalities; R63.4 Abnormal weight loss; C61 Malignant neoplasm of prostate; Z19.1 Hormone sensitive malignancy status; H81.13 Benign paroxysmal vertigo, bilateral; B35.1 Tinea unguium; L03.032 Cellulitis of left toe | CPT/HCPCS: 83036; 93005; 96127; 99212 ==

== ENCOUNTER 2025-02-05 13:30 | Outpatient (REF) | payer MEDICARE, SELFPAY ==
[2025-02-05 14:40] LABS: Baso%MD 0.4 %; Eos%MD 1.5 %; Hematocrit 41.8 % (42.0-52.0); Hemoglobin 14.1 g/dl (14.0-18.0); IG%MD 0.1 %; Lymph%MD 29.4 %; Mean Corpuscular HGB Conc 33.7 g/dl (31.0-36.0); Mean Corpuscular Hemoglobin 31.2 pg (27.0-33.0); Mean Corpuscular Volume 92.5 fL (80.0-98.0); Mean Platelet Volume 9.2 fL (9.4-12.4); Mono%MD 8.5 %; Neut%MD 60.1 %; Platelet Count 251 X10*3/uL (160-400); Red Blood Count 4.52 X10*6/uL (4.60-5.80); Red Cell Distribution Width 13.1 % (11.0-16.0); White Blood Count 6.8 X10*3/uL (4.8-10.8)
[2025-02-05 15:03] LABS: Band Neutrophils Percent 1 % (3-5); Basophils Abs Manual 0.1 X10*3/uL (0.0-0.2); Basophils Percent Manual 2 % (0-2); Lymphocytes Absolute Manual 2.2 X10*3/uL (1.2-4.9); Lymphocytes Percent Manual 32 % (20-40); Monocytes Absolute Manual 0.3 X10*3/uL (0.1-1.2); Monocytes Percent Manual 5 % (2-11); Neutrophils Absolute Manual 4.1 X10*3/uL (2.0-8.3); Neutrophils Percent Manual 60 % (45-73)
[2025-02-05 15:04] LABS: Platelet Estimate NORMAL (NORMAL); Platelet Morphology Comment NORMAL; RBC Morphology NORMAL
[2025-02-05 15:18] LABS: Alanine Aminotransferase 21 U/L (0-40); Albumin Level 4.5 g/dL (3.5-5.0); Alkaline Phosphatase 69 U/L (39-117); Anion Gap 10 (12-20); Aspartate Amino Transferase 30 U/L (5-37); Bilirubin Total 1.4 mg/dL (0.0-1.0); Blood Urea Nitrogen 18 mg/dL (9-16); Calcium 9.2 mg/dL (8.4-10.2); Carbon Dioxide 28 mmol/L (22-29); Chloride 104 mmol/L (96-108); Cholesterol 182 mg/dL (<200); Estimated Glomerular Filt Rate > 60; Glucose Fasting 91 mg/dL (60-99); Glucose Random 91 mg/dL (60-115); HDL Cholesterol 48 mg/dL (>40); Iron 117 mcg/dL (45-160); LDL Cholesterol Calculated 120 mg/dL (<100); Percent Iron Saturation 45 % (15-50); Potassium 4.1 mmol/L (3.3-5.1); Sodium 138 mmol/L (135-145); Total Iron Binding Capacity 260 mcg/dL (228-428); Total Protein 6.7 g/dL (6.5-8.0); Triglycerides 73 mg/dL (<150); Unsaturated Iron Binding 143 ug/dL
[2025-02-05 15:31] LABS: Ferritin 123 ng/mL (20-250); Vitamin D 25-OH Total 36.3 ng/mL (>30)
[2025-02-05 15:32] LABS: TSH reflex Free T4 1.02 uIU/mL (0.32-4.0)
[2025-02-05 15:44] LABS: Folate 5.3 ng/mL (> or = 4.0); Vitamin B12 505 pg/mL (200-900)
[2025-02-05 17:31] LABS: Appearance Urine Clear; Color Urine Yellow; Glucose Urine UA Negative (Negative); Leukocyte Esterase Urine Negative (Negative); Nitrite Urine Negative (Negative); Specific Gravity - Urine <= 1.005 (1.005-1.025); Urine Blood Negative (Negative); Urine Ketones Negative (Negative); Urine Protein Negative (Neg-Trace)
[2025-02-05 18:00] LABS: Creatinine Urine 30.76 mg/dL; Microalbumin Urine < 5.0 mg/L
== END 2025-02-05 13:31 | disposition home or self-care (01) ==
LOC: HO.WFDLDS 13:30
PROVIDERS: Family Medicine; Visit Provider Nurse Practitioner Family
DX: I10 Essential (primary) hypertension (principal); Z00.00 Encounter for general adult medical examination without abnormal findings; Z13.9 Encounter for screening, unspecified; Z13.1 Encounter for screening for diabetes mellitus; R63.4 Abnormal weight loss; Z12.11 Encounter for screening for malignant neoplasm of colon; R19.5 Other fecal abnormalities; C61 Malignant neoplasm of prostate; Z19.1 Hormone sensitive malignancy status
CPT/HCPCS: 36415; 80053; 80061; 81003; 82306; 82570; 82607; 82728; 82746; 83540; 84443; 85007; 85027

== ENCOUNTER 2025-03-11 07:48 | Outpatient (REF) | payer MEDICARE, SELFPAY ==
--- OUTSIDE RECORDS SUMMARY | 2025-03-11 07:50 | XMS_ITS | Encounter Summary ---
Author Organization [facility] Address [address] [place] [address] Phone Care Team Providers Care Pulp Press Tender Name Role Phone Pcp, Unknown Primary Care Provider Patrice Guerra DO Primary Care Provider [phone] Kamaljit Hernandez MD Primary Care Provider + Encounter Details Date Type Department Care Team (Late st Contact Info) Description 07/15/2017 Procedure Pass OR Admitting Dept - Virtual Department [address] [place] [address] Social History Tobacco Use Types Packs/Day Years Used Date Smoking Tobacco: Never Smokeless Tobacco: Never Alcohol Use Standard Drinks/Week Comments Yes 0 (1 standard drink = 0.6 oz pure alcohol) once a week-1-2 drinks wine or hard cider Sex and Gender Information Value Date Recorded Sex Assigned at Not on file Legal Sex Male 10:04 PM EDT Gender Identity Not on file Sexual Orientation Not on file documented as of this encounter Plan of Treatment Not on file documented as of this encounter Visit Diagnoses Not on filedocumented in this encounter Care Teams Pulp Press Tender Relationship Specialty Start Date End Date Pcp, Unknown PCP - General 07/15/17 09/01/18 Patrice Hurst DO PCP - General Internal Medicine 09/02/18 01/17/23 Kamaljit Hernandez MD [address] [place] [phone] PCP - General Internal Medicine 6/2/23 documented as of this encounter Additional Source Comments The information contained in this document represents components of the legal health record. It is not the complete legal health record.[facility]
--- OUTSIDE RECORDS SUMMARY | 2025-03-11 07:51 | XMS_ITS | Encounter Summary ---
Author Organization [facility] Address [address] [place] [address] Care Team Providers Care Dietary Services Director Name Role Phone Unavailable Primary Care Provider Unavailabl e Prior Encounters Date Type Department Care Team Description 09/07/2019 Converted 13x Documents [facility] [address] [place] [address] <No scans attached> 09/07/2019 Converted CPS Chart Documents [facility] [place] [facility] [address], [facility] [address] [place] [phone] <No scans attached> 09/07/2019 Converted 13x Documents [facility] [address], [facility] [address] [place] [phone] <No scans attached> Plan of Treatment Not on file Procedures Procedure Name Priority Date/Time Associated Diagnosis Comments NC X-RAY Routine 10/05/2019 1:00 AM [facility] 28 CORE BUILDUP, INCLUDING ANY PINS WHEN REQUIRED Routine 09/25/2019 1:00 AM [facility] 28 CEMENT CROWN Routine 09/25/2019 1:00 AM [facility] 28 ENDODONTIC THERAPY, PREMOLAR TOOTH (EXCLUDING FINAL PRESYBETERIAN) Routine 09/25/2019 1:00 AM MST 28 CEREC [...] MISSED APPOINTMENT Routine 09/23/2019 1: 00 AM [facility] Visit Diagnoses Not on file
--- OUTSIDE RECORDS SUMMARY | 2025-03-11 07:51 | XMS_ITS | Encounter Summary ---
Author Organization [employer] Address [address] [facility] 7t [place] [address] Care Team Providers Care Molybdenum Steamer Operator Name Role Phone Unavailable Primary Care Provider [...] Description 03/29/2025 9:00 AM EDT Office Visit [facility] ADULT DENTAL [address] [place] [address] Jolene Hope [address] [place], [place] [phone] documented as of this encounter Visit Diagnoses Not on filedocumented in this encounter
== END 2025-03-11 07:49 | disposition home or self-care (01) ==
LOC: HO.LAB 07:48
PROVIDERS: PCP Family Medicine; Visit Provider Urology
DX: C61 Malignant neoplasm of prostate (principal); Z19.1 Hormone sensitive malignancy status
CPT/HCPCS: 36415; 84403

== ENCOUNTER 2025-03-24 09:09 | Outpatient (REF) | payer MEDICARE, SELFPAY ==
--- OUTSIDE RECORDS SUMMARY | 2025-03-24 09:33 | XMS_ITS | Encounter Summary ---
Author Organization [facility] Address [address] [place] [address] Care Team Providers Care Tumbling Machine Operator Name Role Phone Unavailable Primary Care Provider Unavailabl e Prior Encounters Date Type Department Care Team Description 09/07/2019 Converted 13x Documents [facility] [address] [place] [address] <No scans attached> 09/07/2019 Converted CPS Chart Documents [facility] [address], [facility] [address] [place] [phone] <No scans attached> 09/07/2019 Converted 13x Documents [facility] [address], [facility] [address] [place] [phone] <No scans attached> Plan of Treatment Not on file Procedures Procedure Name Priority Date/Time Associated Diagnosis Comments NC X-RAY Routine 10/05/2019 1:00 AM [facility] 28 CORE BUILDUP, INCLUDING ANY PINS WHEN REQUIRED Routine 09/25/2019 1:00 AM [facility] 28 CEMENT CROWN Routine 09/25/2019 1:00 AM [facility] 28 ENDODONTIC THERAPY, PREMOLAR TOOTH (EXCLUDING FINAL LATTER DAY) Routine 09/25/2019 1:00 AM MST 28 CEREC [...] MISSED APPOINTMENT Routine 09/23/2019 1: 00 AM [facility] Visit Diagnoses Not on file
--- OUTSIDE RECORDS SUMMARY | 2025-03-24 09:33 | XMS_ITS | Encounter Summary ---
Author Organization [facility] Address [address] [place] [address] Phone Care Team Providers Care Research Chief Engineer Name Role Phone Pcp, Unknown Primary Care Provider Patrice Guerra DO Primary Care Provider [phone] Kamaljit Hernandez MD Primary Care Provider + Encounter Details Date Type Department Care Team (Late st Contact Info) Description 07/15/2017 Procedure Pass OR Admitting Dept - Virtual Department [address] [place] [address] Social History Tobacco Use Types Packs/Day Years [...] on filedocumented in this encounter Care Teams Research Chief Engineer Relationship Specialty Start Date End Date Pcp, Unknown PCP - General 07/15/17 09/01/18 Patrice Hurst DO PCP - General Internal Medicine 09/02/18 01/17/23 Kamaljit Hernandez MD [address] [place] [phone] PCP - General Internal Medicine 6/2/23 documented as of this encounter Additional Source Comments The information contained in this document represents components of the legal health record. It is not the complete legal health record.[facility]
--- OUTSIDE RECORDS SUMMARY | 2025-03-24 09:33 | XMS_ITS | Encounter Summary ---
Author Organization [employer] Address [address] [facility] [address]t [place] [address] Care Team Providers Care Dressing Machine Operator Name Role Phone Unavailable Primary [...] Description 03/29/2025 9:00 AM EDT Office Visit [facility] ADULT DENTAL [address] [place] [address] Jolene Hope [address] [place], [place] [phone] documented as of this encounter Visit Diagnoses Not on filedocumented in this encounter
== END 2025-03-24 09:10 | disposition home or self-care (01) ==
LOC: HO.MRI 09:09
PROVIDERS: PCP Family Medicine; Visit Provider Urology
DX: Z13.89 Encounter for screening for other disorder (principal)

== ENCOUNTER 2025-04-07 08:08 | Outpatient (REF) | payer MEDICARE, SELFPAY | END 2025-04-07 08:09 | disposition home or self-care (01) | LOC: HO.MRI 08:08 | PROVIDERS: PCP Family Medicine; Visit Provider Urology | DX: Z13.89 Encounter for screening for other disorder (principal) ==

== ENCOUNTER → 2025-04-16 08:09 | Outpatient (BNV) | payer MEDICARE, SELFPAY | PROVIDERS: PCP Family Medicine; Visit Provider Radiology Diagnostic Radiology | DX: R97.20 Elevated prostate specific antigen [PSA] (principal) | CPT/HCPCS: 72197; 76377 ==

== ENCOUNTER 2025-04-16 08:27 | Outpatient (REF) | payer MEDICARE, SELFPAY ==
--- OUTSIDE RECORDS SUMMARY | 2022-03-23 12:22 | XMS_ITS | Encounter Summary ---
Author Organization [facility] Address [address] [facility] [address] [place] [phone] Phone Care Team Providers Care Composition Teacher Name Role Phone Patrice Hurst DO Primary Care Provider [phone] Encounter Details Date Type Department Care Team (Late st Contact Info) Description 03/23/2022 12:22 PM EDT Hospital Encounter [facility] [address] [place] [phone] Melyssa Plummer CNP [address] [place] [phone] Social History Tobacco Use Types Packs/Day Years [...] originally createdby Marlo Aguila. us Melyssa Plummer DEALERSHIP MANAGER IMG XR CHEST Final Resul t documented in this encounter Visit Diagnoses Not on filedocumented in this encounter Care Teams Composition Teacher Relationship Specialty Start Date End Date Patrice Hurst DO PCP - General Internal Medicine 09/02/18 01/17/23 documented as of this encounter Additional Source Comments The information contained in this document represents components of the legal health record. It is not the complete legal health record.[facility]
--- NOTE | ~2025-04-16 | MR_ITS ---
EXAMINATION: MR PROSTATE WITHOUT THEN WITH IV CONTRAST, MR EXAM UNLISTED HISTORY: R97.20 - Elevated prostate specific antigen [PSA] TECHNIQUE: 1.5T body coil survey of the pelvis was performed. Phase array coil imaging of the prostate was performed in multiplanar high resolution axial, coronal, sagittal fast spin echo T2 and axial T1 weighted imaging sequences. Axial diffusion imaging at intermediate and high field performed with ADC mapping. Next, 6.9 mL Gadavist was given by intravenous infusion, and dynamic axial imaging performed. 3-D reconstructions and post-processing were performed on an independent workstation by the radiologist for biopsy planning using image fusion. COMPARISON: There are no prior studies available for comparison. CLINICAL DATA: Most recent PSA: 4.55 ng/mL on 11/16/2024. PSA Density: 0.065 ng/mL squared Prostate Biopsy: Positive biopsy on 07/02/2024 with a Fatou score 3+3 = 6. FINDINGS: Prostate size: 5.7 x 5.6 x 4.2 cm. Calculated prostate volume is 69.7 mL. Hemorrhage: None. Transitional Zone: There is moderate heterogeneous nodular hypertrophy of the transitional zone. Peripheral Zone: There are scattered linear areas of decreased T2 signal intensity within the peripheral zone which may be seen in the setting of prostatitis or scarring. In addition, there is an area of interest as described below: Area of interest #1: Location: Left posterolateral peripheral zone in the mid gland/base measuring approximately 8 mm in size (series 7, images 15-16). DWI PI-RADS v2.1 score: 3 T2 PI-RADS v2.1 score: 4 DCE PI-RADS v2.1 score: + Overall PI-RADS v2.1 score: 4 Capsular contact: yes Extracapsular extension: None Seminal vesicle invasion: None Neurovascular bundle involvement: None Seminal Vesicles/Ejaculatory Ducts: Symmetric and normal in signal and caliber. Pelvic Lymph Nodes: No obturator or internal iliac lymph nodes meeting size criteria for adenopathy. Marrow Signal: Normal marrow signal and enhancement without focal lesion identified. MR/MR Prostate wo/w con IMPRESSION: Area of interest in the left posterolateral peripheral zone in the mid gland/base as described, suspicious for clinically significant prostate carcinoma. PI-RADS 4: High (clinically significant cancer is likely to be present) PI-RADS Assessment Categories PI-RADS 1: Very low (clinically significant cancer is highly unlikely to be present) PI-RADS 2: Low (clinically significant cancer is unlikely to be present) PI-RADS 3: Intermediate (the presence of clinically significant cancer is equivocal) PI-RADS 4: High (clinically significant cancer is likely to be present) PI-RADS 5: Very high (clinically significant cancer is highly likely to be present) [employer]. MR Prostate Imaging Reporting and Data System version 2.1. [email or web address]/Quality-Safety/[email or web address]/ Electronically signed by: Derrick Balderas MD 04/16/2025 09:50 AM EDT
--- OUTSIDE RECORDS SUMMARY | 2025-04-16 09:19 | XMS_ITS | Encounter Summary ---
Author Organization [facility] Address [address] [place] [address] [place] [address] Phone Care Team Providers Care Tandem Operator Name Role Phone Patrice Hurst DO Primary Care Provider [phone] Kamaljit Hernandez MD Primary Care Provider + Encounter Details Date Type Department Care Team (Latest Contact Info) Description 04/29/2019 Transcribe Orders Virtual Department [address] [place] [address] Heydi Soto PA-C [address] [place] [address] Radiculopathy, lumbar region (Primary Dx) Social History Tobacco Use Types Packs/Day Years [...] documented as of this encounter Visit Diagnoses Diagnosis Radiculopathy, lumbar region- Primary Thoracic or lumbosacral neuritis or radiculitis, unspecified documented in this encounter Care Teams Tandem Operator Relationship Specialty Start Date End Date Patrice Hurst DO PCP - General Internal Medicine 09/02/18 01/17/23 Kamaljit Hernandez MD [address] [place] [address] [place] [phone] PCP - General Internal Medicine 01/18/23 documented as of this encounter Additional Source Comments The information contained in this document represents components of the legal health record. It is not the complete legal health record.[facility]
--- OUTSIDE RECORDS SUMMARY | 2025-04-16 09:19 | XMS_ITS | Clinical Summary ---
Author Organization [employer] Address [address] [place] [address] 7t [place] [address] Care Team Providers Care Manufacturing Project Engineer Name Role Phone Unavailable Primary Care Provider Unavailabl e Allergies Active Allergy Reactions Criticality Noted Date Comments Sulfa Antibiotics Unknown 07/08/2017 Medications No known medications Social History Tobacco Use Types Packs/Day Years [...] Mass Index - - Plan of Treatment Health Maintenance Due Date Last Done Comments [...] X-Ray: Full Mouth 09/01/2015 08/31/2012 COVID-19 Vaccine ( season) 2024 04/04/2021, 03/12/2021 RSV Patients and Patients Aged 60 years or older (1 - 1-dose 75+ series) 2024 Dental Oral Exam 03/09/2025 09/08/2024, , 08/28/2023, Additional history exists Dental Prophylaxis 03/09/2025 09/08/2024, 0 03/04/2024, 08/28/2023, Additional history exists Influenza Vaccine (#1) 2025 Tobacco Screening 09/08/2025 09/08/2024 Dental X-Ray: Bitewings [...] patient's age to complete this topic Meningococcal B Vaccine Aged Out No l onger eligible based on patient's age to complete [...] Procedure Name Priority Date/Time Associated Diagnosis Comments PROPHYLAXIS - ADULT Routine 09/08/2024 9 :00 AM EST BITEWINGS - 4 RADIOGRAPHIC IMAGES Routine 09/08/2024 9:00 AM EST PERIODIC ORAL EVALUATION - ESTABLISHED PATIENT Routine 09/08/2024 9:00 AM EST from Last 3 Months or Most Recently Relevant to Health Maintenance Insurance HSN FULL DENTAL - HSN FULL (MEDICAID) DENTAL [facility] PPO * Guarantor: Forest [employer] Account Type Relation to Patient Date of Phone Billing Address Personal/Family Self [place], [place] * Guarantor: Forest [employer] Account Type Relation to Patient Date of Phone Billing Address Personal/Family Self [place], [place]
--- OUTSIDE RECORDS SUMMARY | 2025-04-16 09:19 | XMS_ITS | Encounter Summary ---
Author Organization [employer] Address [address] [facility] 7t [place] [address] Care Team Providers Care Crawler Dragline Operator Name Role Phone Unavailable Primary Care Provider Unavailabl e Encounter Details Date Type Department Care Team (Latest Contact Info) Description 01/13/2019 Abstract [facility] CONVERSIONS Dental, Provider, DDS Social [...]
--- OUTSIDE RECORDS SUMMARY | 2025-04-16 09:19 | XMS_ITS | Encounter Summary ---
Author Organization [facility] Address [address] [place] [address] Care Team Providers Care Recreation Attendant Name Role Phone Unavailable Primary Care Provider Unavailabl e Prior Encounters Date Type Department Care Team Description 09/07/2019 Converted 13x Documents [facility] [address] [place] [place] [address] <No scans attached> 09/07/2019 Converted CPS Chart Documents [facility] [address], [facility] [address] [place] [phone] <No scans attached> 09/07/2019 Converted 13x Documents [facility] [address], [facility] [address] [place] [phone] <No scans attached> Plan of Treatment Not on file Procedures Procedure Name Priority Date/Time Associated Diagnosis Comments NC X-RAY Routine 10/05/2019 1:00 AM [facility] 28 CORE BUILDUP, INCLUDING ANY PINS WHEN REQUIRED Routine 09/25/2019 1:00 AM [facility] 28 CEMENT CROWN Routine 09/25/2019 1:00 AM [facility] 28 ENDODONTIC THERAPY, PREMOLAR TOOTH (EXCLUDING FINAL CHRISTIANITY) Routine 09/25/2019 1:00 AM [facility] 28 CEREC [...] MISSED APPOINTMENT Routine 09/23/2019 1: 00 AM [facility] Visit Diagnoses Not on file
--- OUTSIDE RECORDS SUMMARY | 2025-04-16 09:19 | XMS_ITS | Clinical Summary ---
Author Organization [facility] Health Address [address] [place] [address] Care Team Providers Care Bearing Press Machine Operator Name Role Phone Unavailable Primary [...]
--- OUTSIDE RECORDS SUMMARY | 2025-04-16 09:19 | XMS_ITS | Encounter Summary ---
Author Organization [employer] Address [address] [facility] 7t [place] [address] Care Team Providers Care Anode Builder Name Role Phone Unavailable Primary Care Provider [...]
--- OUTSIDE RECORDS SUMMARY | 2025-04-16 09:19 | XMS_ITS | Encounter Summary ---
Author Organization [employer] Address [address] [facility] 7t [place] [address] Care Team Providers Care Flute Teacher Name Role Phone Unavailable Primary Care Provider Unavailabl e Encounter Details Date Type Department Care Team (Latest Contact Info) Description 03/06/2021 Abstract [facility]VERSION[facility] Dental, Provider, DDS Social History Tobacco [...]
--- OUTSIDE RECORDS SUMMARY | 2025-04-16 09:19 | XMS_ITS | Encounter Summary ---
Author Organization [facility] Address [address] [place] [address] [place] [address] Phone Care Team Providers Care Cargo Services Coordinator Name Role Phone India Wilson MD Primary Care Provider [phone] Pcp, Unknown Primary Care Provider Patrice Guerra DO Primary Care Provider [phone] Kamaljit Hernandez MD Primary Care Provider + Encounter Details Date Type Department Care Team (Late st Contact Info) Description 06/17/2017 Transcribe Orders [facility], X-Ray - [address] [address] System, Provider Not In, PhD Partners [address] [address] Sinus congestion (Primary Dx) Social History Tobacco Use Types Packs/Day Years Used Date Smoking Tobacco: Never Assessed Sex and Gender Information Value Date Recorded Sex Assigned at Not on file Legal Sex Male 10:04 PM EDT Gender Identity Not on file Sexual Orientation Not on file documented as of this encounter Plan of Treatment Not on file documented as of this encounter Visit Diagnoses Diagnosis Sinus congestion- Primary Other diseases of nasal cavity and sinuses documented in this encounter Care Teams Cargo Services Coordinator Relationship Specialty Start Date End Date India Wilson MD [address] [facility], [facility] 8 [place] [address] PCP - General General Surgery 06/17/17 07/14/17 Pcp, Unknown PCP - General 07/15/17 09/01/18 Patrice Hurst DO PCP - General Internal Medicine 09/02/18 01/17/23 Kamaljit Hernandez MD [address] [place] [phone] PCP - General Internal Medicine 01/18/23 documented as of this encounter Additional Source Comments The information contained in this document represents components of the legal health record. It is not the complete legal health record.[facility]
--- OUTSIDE RECORDS SUMMARY | 2025-04-16 09:19 | XMS_ITS | Encounter Summary ---
Author Organization [facility] Address [address] [place] [address] Phone Care Team Providers Care Medicinal Plant Picker Name Role Phone Pcp, Unknown Primary Care Provider Patrice Guerra DO Primary Care Provider [phone] Kamaljit Hernandez MD Primary Care Provider + Encounter Details Date Type Department Care Team (Late st Contact Info) Description 07/15/2017 Procedure Pass [place] Admitting Dept - Virtual Department [address] [place] [address] Social History Tobacco Use Types Packs/Day Years [...] on filedocumented in this encounter Care Teams Medicinal Plant Picker Relationship Specialty Start Date End Date Pcp, Unknown PCP - General 07/15/17 09/01/18 Ptarice Hurst DO PCP - General Internal Medicine 09/02/18 01/17/23 Kamaljit Hernandez MD [address] [place] [phone] PCP - General Internal Medicine 6/2/23 documented as of this encounter Additional Source Comments The information contained in this document represents components of the legal health record. It is not the complete legal health record.[facility]
--- OUTSIDE RECORDS SUMMARY | 2025-04-16 09:19 | XMS_ITS | Encounter Summary ---
Author Organization [facility] Address [address] [facility] [address] [place] [address] Phone Care Team Providers Care Program Services Assistant Name Role Phone India Wilson MD Primary Care Provider [phone] Pcp, Unknown Primary Care Provider Patrice Guerra DO Primary Care Provider [phone] Kamaljit Hernandez MD Primary Care Provider + Encounter Details Date Type Department Care Team (Latest Contact Info) Description 06/17/2017 Transcribe Orders [facility], X-Ray - [address] [address] Melyssa Plummer, INSPECTOR [employer] [address] [place] [address] [email or web address] Sinus pressure (Primary Dx) Social History Tobacco Use Types Packs/Day Years Used Date Smoking Tobacco: Never Assessed Sex and Gender Information Value Date Recorded Sex Assigned at Not on file Legal Sex Male 10:04 PM EDT Gender Identity Not on file Sexual Orientation Not on file documented as of this encounter Plan of Treatment Not on file documented as of this encounter Results * XR PARANASAL SINUSES 3 OR MORE VIEWS (06/17/2017 4:48 PM EDT) Anatomical Region Laterality Modality Face Radiographic Elli ging 06/17/2017 4:51 PM EDT Impressions 06/17/2017 4:52 PM EDT No plain film findings of sinusitis. POS - [id number] Narrative 06/17/2017 4:52 PM EDT Paranasal sinuses 4 views. No fluid or thickening. No bony lesions. Procedure Note Jason Elkins MD - 06/17/2017 Paranasal sinuses 4 views. No fluid or thickening. No bony lesions. IMPRESSION: No plain film findings of sinusitis. POS - [id number] India Haley MD IMG XR HEAD AND SHUNT SE [place] Final Result documented in this encounter Visit Diagnoses Diagnosis Sinus pressure- Primary Other diseases of nasal cavity and sinuses Sinus pressure Other diseases of nasal cavity and sinuses documented in this encounter Care Teams Program Services Assistant Relationship Specialty Start Date End Date India Wilson MD [address] [place] [address], [facility] 8 [place] [address] PCP - General General Surgery 06/17/17 07/14/17 Pcp, Unknown PCP - General 07/15/17 09/01/18 Patrice Hurst DO PCP - General Internal Medicine 09/02/18 01/17/23 Kamaljit Hernandez MD [address] [place] [phone] PCP - General Internal Medicine 01/18/23 documented as of this encounter Additional Source Comments The information contained in this document represents components of the legal health record. It is not the complete legal health record.[facility]
== END 2025-04-16 08:28 | disposition home or self-care (01) ==
LOC: HO.MRI 08:27
PROVIDERS: PCP Family Medicine; Visit Provider Urology
DX: R97.20 Elevated prostate specific antigen [PSA] (principal); C61 Malignant neoplasm of prostate; Z19.1 Hormone sensitive malignancy status
CPT/HCPCS: 72197; 76377; 99212; A9585

== ENCOUNTER 2025-04-16 14:45 | Outpatient (AMB) | payer MEDICARE, SELFPAY ==
--- NOTE | 2025-04-16 15:14 | MHC.PC.OV ---
Vital Signs 04/16/25 15:18 Height 5 ft 11 in Weight 160 lb 2 oz BMI 22.3 BP 119/71 Blood Pressure Location Rt brachial Position Sitting Respiration 16 Pulse 78 Pulse Source Pulse Oximeter Temp 97.3 F Temp Source Oral Pulse Oximetry (%) 99 Oxygen Delivery Method Room Air Intake Visit Reasons: PT REFERRAL BACK PAIN Intake Note: patient here requesting a referral for back pain Signals Collection Technician Required: No Allergies Sulfa (Sulfonamide Antibiotics) Allergy (Intermediate, Verified 04/16/25 15:17) Unknown Tobacco use date assessed: 04/16/25 Fall risk assessment: No Falls in past year Last assessed Fall Risk: 04/16/25 Dental Screening Dental Screen Date: 04/16/25 Did you have a dental visit in the last 12 months?: Yes Did you have a dental problem in the last 6 months where you did not have access to dental care?: No Was dental information given to patient?: Patient has dentist HPI PT REFERRAL BACK PAIN HPI Details 74 y/o male presents today with complaints of back pain. Had started experiencing pain after playing pickle ball for a few hours. [facility] Medical History Stroke Inguinal hernia Surgical History Hx of inguinal hernia surgery History of knee surgery History of hand surgery Family History (Updated 02/05/25 @ 12:10 by Addie Flores MA) Mother Cancer Father Cardiovascular disease Social History (Updated 02/05/25 @ 12:11 by Addie Flores MA) Household Members: None Housing: Other Housing Other:: Mobile home 75 years or older and lives alone: No Alcohol intake: current Alcohol intake frequency: a few times a week Alcohol type: wine Patient Tobacco Use Status: Never used Tobacco e-Cigarette/Vaping Use: Never Used Second Hand Smoke Exposure: No service: No Current occupational status: retired Current occupational exposures/hazards: No Cognitive needs: No Hearing needs: No Vision needs: No Questionnaire Thrive Questionnaire Date Thrive assessed: 08/20/24 I am a: Patient What is your living situation today?: I have a steady place to live Within the past 12 months, did the food you bought not last and you didn't have the money to get more?: Never true Within the past 12 months, did you worry whether your food would run out before you got money to buy more?: Never true Do you have trouble paying for medicines?: No Do you have trouble getting transportation to medical appointments?: No Do you have trouble paying your heating and electricity bill?: No Do you have trouble taking care of your child, family member or friend?: No Do you have trouble with day-to-day activities such as bathing, preparing meals, shopping, managing finances, etc.?: No Are you currently unemployed and looking for a job?: I choose not to answer this question Are you interested in more education?: I choose not to answer this question Please select the resources that you would like help with: Utilities Currently or been in a relationship where the following occur: No concerns reported THRIVE Score: 0 AAMIR-7 AMB Questionnaire AAMIR-7 Date AAMIR - 7 assessed: 01/31/24 Source: Developed by Drs. Derrick Garcia, Sirena Whitlock, Moo Lynn and colleagues, with an educational maycol from [employer] Review of Systems Const Denies chills, Denies fatigue, Denies fever(s), Denies headache(s) and Denies weakness ENT Denies dizziness and Denies headache(s) Card Denies dyspnea Resp Denies cough, Denies dyspnea, Denies wheezing and Denies other (shortness of breath) Musc Denies numbness and Denies tingling Neuro Denies dizziness, Denies headache(s), Denies numbness, Denies tingling and Denies weakness Psych Denies anxiety and Denies depression Endo Denies fatigue Aller/Immun Denies wheezing Physical exam (Primary Care) Vital Signs: Last Vital Signs Temp 97.3 F 04/16/25 15:18 Pulse 78 04/16/25 15:18 Resp 16 04/16/25 15:18 BP 119/71 04/16/25 15:18 Pulse Ox 99 04/16/25 15:18 Oxygen Delivery Method Room Air 04/16/25 15:18 BMI result Body Mass Index 22.3 Tobacco/Smoking Status: Tobacco use Status Tobacco use date assessed 04/16/25 04/16/25 15:23 Patient Tobacco Use Status Never used Tobacco 04/16/25 15:16 e-Cigarette/Vaping Use Never Used 04/16/25 15:16 Thrive Assessment: Date of Thrive Assessment Date Thrive assessed 08/20/24 04/16/25 15:16 Currently or been in a relationship where the following occur: No concerns reported Const General: well developed; No acute distress Nutritional Appearance: well nourished Orientation/consciousness: patient oriented x3 [facility] Head: Yes normocephalic and Yes atraumatic Eyes General: appearance normal, both eyes and all related structures Pupils: Equal, round and reactive pupils present EOM: EOMs intact bilaterally Resp Effort & Inspection: normal respiratory effort Neuro General: patient oriented x3 and gait normal Cranial nerves: Yes Equal, round and reactive pupils present Psych Affect: normal affect Coding Level of Care Code Est Pt Level 3 (77437) Diagnoses Back pain M54.9 Hormone sensitive prostate cancer C61; 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 Pain is not over the spine or pelvic crest. Likely muscle strain He can use ice/heat Naproxen or Tylenol Will refer him for physical therapy (2) Hormone sensitive prostate cancer: Code(s): C61 - Malignant neoplasm of prostate; Z19.1 - Hormone sensitive malignancy status Category: Medical Plan: Followed by Dr. Rubin, urology Patient just underwent MRI today Follow-up with Dr. Rubin as recommended Plan Discussed with patient that if not improving with physical therapy or if pain is over bony prominences of spine or pelvis we should consider reimaging he is back. Orders: Orders PT Evaluation and Treatment Today M54.9 - Dorsalgia, unspecified
[2025-04-16 15:18] VITALS: BP 119/71; PULSE 78; RESP 16; TEMP 36.3; O2SAT 99; BMI 22.3
== END 2025-04-16 15:59 | disposition home or self-care (01) ==
LOC: HO.HMCFM 14:46
PROVIDERS: PCP Family Medicine; Visit Provider Family Medicine
DX: M54.9 Dorsalgia, unspecified (principal); C61 Malignant neoplasm of prostate; Z19.1 Hormone sensitive malignancy status

== ENCOUNTER 2025-05-04 08:32 | Outpatient (AMB) | payer MEDICARE, SELFPAY ==
--- OUTSIDE RECORDS SUMMARY | 2022-03-23 12:22 | XMS_ITS | Encounter Summary ---
Author Organization [facility] Address [address] [facility] [address] [place] [phone] Phone Care Team Providers Care Commodity Lead Name Role Phone Patrice Hurst DO Primary Care Provider [phone] Encounter Details Date Type Department Care Team (Late st Contact Info) Description 03/23/2022 12:22 PM EDT Hospital Encounter [facility] [address] [place] [phone] Melyssa Plummer CNP [address] [place] [phone] Social History Tobacco Use Types Packs/Day Years [...] as of this encounter Plan of Treatment Not on file documented as of this encounter Procedures Procedure [...] edited the report originally createdby Marlo Aguila. us Melyssa Plummer ASSISTANT PROJECT MANAGER IMG XR CHEST Final Resul t documented in this encounter Visit Diagnoses Not on filedocumented in this encounter Care Teams Commodity Lead Relationship Specialty Start Date End Date Patrice Hurst DO PCP - General Internal Medicine 09/02/18 01/17/23 documented as of this encounter Additional Source Comments The information contained in this document represents components of the legal health record. It is not the complete legal health record.[facility]
--- OUTSIDE RECORDS SUMMARY | 2025-04-29 09:00 | XMS_ITS | Encounter Summary ---
Author Organization [employer] Address [address] [facility] 7 [place] [address] Care Team Providers Care Veneer Trimmer Name Role Phone Unavailable Primary Care Provider Unavailabl e Reason for Visit * Reason Comments Routine Cleaning Encounter Details Date Type Department Care Team (Late st Contact Info) Description 04/29/2025 9:00 AM EDT Office Visit [facility] [address] [place] [address] [phone] Jolene Hope [address] [place], [place] [phone] Social History Tobacco Use Types Packs/Day Years Used Date Smoking Tobacco: Never Smokeless Tobacco: Never Sex and Gender Information Value Date Recorded Sex Assigned at Male 06/18/2022 10:24 AM EDT Legal Sex Male 10:24 AM EDT Gender Identity Male 06/18/2022 10:24 AM EDT Sexual Orientation Choose not to disclose 2021 10:24 AM EDT documented as of this encounter Last Filed Vital Signs Vital Sign Reading Time Taken Comments Blood Pressure 134/66 04/29/2025 9:08 AM EDT Pulse 62 04/29/2025 9:08 AM EDT Temperature - - Respiratory Rate - - Oxygen Saturation - - Inhaled Oxygen Concentration - - Weight - - Height - - Body Mass Index - - documented in this encounter Progress Notes * Jolene Hope - 04/29/2025 9:00 AM EDT Patient ID: Forest Marks is a 74 y.o. male. Time Out: Date: 04/29/2025 Location: [facility] Tooth: all Procedure: Exam and Prophylaxis Verified the above with patient, hotel assistant manager, and provider. Confirmed via patient's chart, intraorally and by radiographs. Amplifier Mechanic: not applicable Treatment Provided Dental procedures in this visit D1110 - PROPHYLAXIS - ADULT (Completed) Service provider: Jolene Hope Billing provider: Francois Weber BDS Instruments Used: Ultrasonic Scalers, Hand Scalers, and Prophy angle Calculus: Light Plaque: Light Stain: Light Bleeding: Light Gingiva: Healthy OH: Fair OCS: neg findings HNE: neg findings Oral hygiene instructions provided to patient including brushing technique and flossing. Recommendations: Floss daily Recall Frequency: 6 mo NV: Hygienist: Jolene Hope RDH Cosigned by Francois Weber BDS at 04/29/2025 4:59 PM EDT * Francois Weber BDS - 04/29/2025 9:00 AM EDT No anesthetic used Procedure Details D0120 - PERIODIC ORAL EVALUATION - ESTABLISHED PATIENT D1110 - PROPHYLAXIS - ADULT Subjective Patient ID: Forest Marks is a 74 y.o. male. Chief Complaint Patient presents with Routine Cleaning HPI Objective Soft Tissue Exam No findings documented this visit Dental Exam Perio: Perio diagnosis: Generalized Healthy Perio treatment recommendations: Prophy and Debride Frequency: Every 6 months. Fluoride Recommendations: None Francois Weber BDS discussed findings associated with the patient's periodontal and cariesstatus. Assessment & Plan Other orders PROPHYLAXIS - ADULT; Future PROPHYLAXIS - ADULT; Future PERIODIC ORAL EVALUATION - ESTABLISHED PATIENT; Future No complications documented in this encounter Plan of Treatment Upcoming Encounters Date Type Department Care Team (Late st Contact Info) Description 11/01/2025 10:00 AM EDT Office Visit [facility] [address] [place] [address] [phone] Jolene Hope [address] [place] [phone] Scheduled Orders Name Type Priority Associated Diagnoses Orde r Schedule PROPHYLAXIS - ADULT Dental Routine 1 Occ urrences starting 04/29/2025 documented as of this encounter Procedures Procedure Name Priority Date/Time Associated Diagnosis Comments PROPHYLAXIS - ADULT Routine 04/29/2025 9:00 AM EDT PERIODIC ORAL EVALUATION - ESTABLISHED PATIENT Routine 04/29/2025 9:00 AM EDT documented in this encounter Visit Diagnoses Not on filedocumented in this encounter
--- NOTE | 2025-05-04 08:33 | A.OFFVIS_ITS ---
Intake Visit Reasons: mri results Intake Note: patient presents today for: telehealth follow up urology medications: none blood thinners: none labs done 03/11/25: t-testo 793 MRI done: 04/16/25 Cellophane Tester Required: No Accompanied by: Self / Same As Patient Allergies Sulfa (Sulfonamide Antibiotics) Allergy (Intermediate, Verified 05/04/25 08:34) Unknown HPI Comments Details: Forest is a pleasant male. He is a patient of Dr. Ren. He is seen for the following urologic conditions -prostate cancer Telemedicine Evaluation 15 min Consultation [facility] - MRI 70gm prostate - Left posterolateral peripheral zone in the mid gland/base measuring approximately 8 mm in size - PiRADS4 Prostate cancer - 07/12 - grade group 1, NCCN ultra/low risk category .2023 PSA - 07/07 2.3, 03/11 4.7, 06/11 6.6 % free PSA 18%, 12/11 4.6 15% TRUS volume 65gm [id number] 07/12 PSA 6.6 Histologic type: Acinar adenocarcinoma Histologic grade: Moderately differentiated Fatou score: 3+3=6 Tumor quantitation: Number cores positive: 5 ( LDL 4%, LL 25%, RMM 8%, RAL 4%, VARINDER 29%) Total number of cores: 12 Periprostatic fat inv.: Not identified Seminal vesicle inv.: Not identified Perineural inv.: Not identified LVI: Not identified PFSH Medical History Stroke Inguinal hernia Surgical History Hx of inguinal hernia surgery History of knee surgery History of hand surgery Family History (Updated 02/05/25 @ 12:10 by Addie Flores MA) Mother Cancer Father Cardiovascular disease Social History (Updated 02/05/25 @ 12:11 by Addie Flores MA) Household Members: None Housing: Other Housing Other:: Mobile home 75 years or older and lives alone: No Alcohol intake: current Alcohol intake frequency: a few times a week Alcohol type: wine Patient Tobacco Use Status: Never used Tobacco e-Cigarette/Vaping Use: Never Used Second Hand Smoke Exposure: No service: No Current occupational status: retired Current occupational exposures/hazards: No Cognitive needs: No Hearing needs: No Vision needs: No Review of Systems Const All systems reviewed & are unremarkable except as noted in HPI and below Reports no additional complaints Resp Reports no additional complaints GI Reports no additional complaints Reports as per HPI Musc Reports no additional complaints Physical Exam Telemedicine evaluation Appropriate responses Regular breathing rate and rhythm HEENT Head: Yes normal to inspection Ears: hearing grossly normal bilaterally Eyes General: appearance normal, both eyes and all related structures Neck Neck: Yes normal visual inspection Chest Chest palpation & inspection: normal inspection of the chest Resp Effort & Inspection: normal respiratory effort and able to speak in complete sentences Telehealth Telehealth Telehealth Platform: [employer] Location of provider rendering services: practice address Location of patient: address on file Patient Identification confirmed using: Name, : Yes Telehealth method: video Patient verbally consented to treatment: Yes Patient verbally consented to billing insurance company: Yes Patient informed of any privacy concerns related to visit: Yes Minutes spent on Phone/Video with Pt.: 15 Assessment & Plan Assessment & Plan (1) Hormone sensitive prostate cancer: Code(s): C61 - Malignant neoplasm of prostate; Z19.1 - Hormone sensitive malignancy status Category: Medical Plan Continue surveillance PSA follow-up 4 months Orders: Orders Prostate Specific Antigen 4 Months C61 - Malignant neoplasm of prostate, Z19.1 - Hormone sensitive malignancy status Patient Instructions: This note is constructed using voice recognition software. While every effort has been made to ensure accuracy marine meteorologist errors may have been included. Imaging studies, laboratory and physical exam results were discussed and reviewed in detail. No major barriers to patient understanding were identified. An opportunity to ask questions regarding the treatment plan was provided. All questions were answered. The patient expressed understanding and agreement with the above treatment plan. The patient is aware they should contact our office by phone for worsening of their current condition or the appearance of new urologic symptoms. Compliance is encouraged with any medications and followup testing that is ordered. It is a privilege to participate in the urologic care of your patient. If you have any questions or concerns regarding treatment for the above conditions, or other urologic issues, please do not hesitate to contact me. The office telephone contact is [phone]. Sincerely, Dr Fred Rubin MD, [facility] - Urology Compassionate Specialist Care for the Genitourinary System Coding Level of Care Code Tele Est Pt Level 3 (73055) Complex EM visit Add On G2211 Diagnoses Hormone sensitive prostate cancer C61; Z19.1
--- OUTSIDE RECORDS SUMMARY | 2025-05-04 10:11 | XMS_ITS | Encounter Summary ---
Author Organization [facility] Address [address] [facility] [address] [place] [phone] Phone Care Team Providers Care Business Professor Name Role Phone India Wilson MD Primary Care Provider [phone] Pcp, Unknown Primary Care Provider Patrice Guerra DO Primary Care Provider [phone] Kamaljit Hernandez MD Primary Care Provider + Encounter Details Date Type Department Care Team (Latest Contact Info) Description 06/17/2017 Transcribe Orders [facility], X-Ray - [address] [address] Melyssa Plummer, INVESTIGATOR [address] [place] [address] [email or web address] Sinus pressure (Primary Dx) Social History Tobacco [...] sinuses documented in this encounter Care Teams Business Professor Relationship Specialty Start Date End Date India Wilson MD [address] [place] [address], [facility] [address] [place] [address] PCP - General General Surgery 06/17/17 07/14/17 Pcp, Unknown PCP - General 07/15/17 09/01/18 Patrice Hurst DO PCP - General Internal Medicine 09/02/18 01/17/23 Kamaljit Hernandez MD [address] [place] [phone] PCP - General Internal Medicine 01/18/23 documented as of this encounter Additional Source Comments The information contained in this document represents components of the legal health record. It is not the complete legal health record.[facility]
--- OUTSIDE RECORDS SUMMARY | 2025-05-04 10:11 | XMS_ITS | Encounter Summary ---
Author Organization [facility] Address [address] [place] [address] [place] [phone] Phone Care Team Providers Care Special Systems Technician Name Role Phone India Wilson MD Primary Care Provider [phone] Pcp, Unknown Primary Care Provider Patrice Guerra DO Primary Care Provider [phone] Kamaljit Hernandez MD Primary Care Provider + Encounter Details Date Type Department Care Team (Late st Contact Info) Description 06/17/2017 Transcribe Orders [facility], X-Ray - [address] [address] System, Provider Not In, PhD Partners [address] [address] Sinus congestion (Primary Dx) Social History Tobacco [...] sinuses documented in this encounter Care Teams Special Systems Technician Relationship Specialty Start Date End Date India Wilson MD [address] [facility] [address] [place] [address] PCP - General General Surgery 06/17/17 07/14/17 Pcp, Unknown PCP - General 07/15/17 09/01/18 Patrice Hurst DO PCP - General Internal Medicine 09/02/18 01/17/23 Kamaljit Hernandez MD [address] [place] [phone] PCP - General Internal Medicine 01/18/23 documented as of this encounter Additional Source Comments The information contained in this document represents components of the legal health record. It is not the complete legal health record.[facility]
--- OUTSIDE RECORDS SUMMARY | 2025-05-04 10:11 | XMS_ITS | Encounter Summary ---
Author Organization [employer] Address [address] [facility] 7t [place] [address] Care Team Providers Care Licensed Mental Health Counselor Name Role Phone Unavailable Primary Care Provider [...] Description 11/01/2025 10:00 AM EDT Office Visit [facility] [address] [place], [place] [phone] Jolene Hope [address] [place] [address] documented as of this encounter Visit Diagnoses Not on filedocumented in this encounter
--- OUTSIDE RECORDS SUMMARY | 2025-05-04 10:11 | XMS_ITS | Encounter Summary ---
Author Organization [employer] Address [address] [facility] 7t [place] [address] Care Team Providers Care Bumper Operator Name Role Phone Unavailable Primary Care Provider Unavailabl e Encounter Details Date Type Department Care Team (Latest Contact Info) Description 01/13/2019 Abstract [facility] CONVERSIONS Dental, Provider, DDS Social History [...] Description 11/01/2025 10:00 AM EDT Office Visit [facility] [address] [place] [address] Jolene Hope [address] [place], [place] [phone] documented as of this encounter Visit Diagnoses Not on filedocumented in this encounter
--- OUTSIDE RECORDS SUMMARY | 2025-05-04 10:11 | XMS_ITS | Encounter Summary ---
Author Organization [facility] Address [address] [place] [phone] Phone Care Team Providers Care Tool Crib Manager Name Role Phone Pcp, Unknown Primary Care Provider Patrice Guerra DO Primary Care Provider [phone] Kamaljit Hernandez MD Primary Care Provider + Encounter Details Date Type Department Care Team (Late st Contact Info) Description 07/15/2017 Procedure Pass OR Admitting Dept - Virtual Department [address] [place] [address] Social History Tobacco Use Types Packs/Day Years [...] on filedocumented in this encounter Care Teams Tool Crib Manager Relationship Specialty Start Date End Date Pcp, Unknown PCP - General 07/15/17 09/01/18 Patrice Hurst DO PCP - General Internal Medicine 09/02/18 01/17/23 Kamaljit Hernandez MD [address] [place] [phone] PCP - General Internal Medicine 6/2/23 documented as of this encounter Additional Source Comments The information contained in this document represents components of the legal health record. It is not the complete legal health record.[facility]
--- OUTSIDE RECORDS SUMMARY | 2025-05-04 10:12 | XMS_ITS | Encounter Summary ---
Author Organization [employer] Address [address] [facility] 7t [place] [address] Care Team Providers Care Quality Process Lead Name Role Phone Unavailable Primary Care Provider Unavailabl e Encounter Details Date Type Department Care Team (Latest Contact Info) Description 03/06/2021 Abstract [facility] CONVERSIONS Dental, Provider, DDS Social History [...] Description 11/01/2025 10:00 AM EDT Office Visit [facility] [address] [place] [address] Jolene Hope [address] [place] [address] documented as of this encounter Visit Diagnoses Not on filedocumented in this encounter
--- OUTSIDE RECORDS SUMMARY | 2025-05-04 10:12 | XMS_ITS | Encounter Summary ---
Author Organization [facility] Health Address [address] [place] [address] Care Team Providers Care Injection Mold Technician Name Role Phone Unavailable Primary Care Provider Unavailabl e Prior Encounters Date Type Department Care Team Description 09/07/2019 Converted 13x Documents [facility] [address] [place] [address] <No scans attached> 09/07/2019 Converted CPS Chart Documents [facility] [address], [facility] [address] [place] [phone] <No scans attached> 09/07/2019 Converted 13x Documents [facility] [address], [facility] [address] [place] [phone] <No scans attached> Plan of Treatment Not on file Procedures Procedure Name Priority Date/Time Associated Diagnosis Comments [place] X-RAY Routine 10/05/2019 1:00 AM [facility] 28 CORE BUILDUP, INCLUDING ANY PINS WHEN REQUIRED Routine 09/25/2019 1:00 AM [facility] 28 CEMENT CROWN Routine 09/25/2019 1:00 AM [facility] 28 ENDODONTIC THERAPY, PREMOLAR TOOTH (EXCLUDING FINAL SHINTO) Routine 09/25/2019 1:00 AM MST 28 CEREC [...] MISSED APPOINTMENT Routine 09/23/2019 1: 00 AM [facility] Visit Diagnoses Not on file
--- OUTSIDE RECORDS SUMMARY | 2025-05-04 10:12 | XMS_ITS | Clinical Summary ---
Author Organization [facility] Health Address [address] [place] [address] Care Team Providers Care Slicing Machine Feeder Name Role Phone Unavailable Primary Care Provider [...]
--- OUTSIDE RECORDS SUMMARY | 2025-05-04 10:12 | XMS_ITS | Clinical Summary ---
Author Organization [facility] Address [address] [facility] [address] [place] [phone] Phone Care Team Providers Care Automotive Alignment Specialist Name Role Phone Kamaljit Hernandez MD Primary Care Provider + Allergies Active Allergy Reactions Criticality Noted Date Comments Sulfa (Sulfonamide Antibiotics) Unknown 06/20 Medications aspirin 81 MG EC tablet Take 1 tablet by mouth every morning. 12/31/2022 Active atorvastatin (LIPITOR) 40 MG tablet Take 40 mg by mouth nightly at bedtime. at bedtime. 12/31/2022 Active Active Problems Problem Noted Date Diagnosed Date Frostbite 07/09/2018 History of emphysema 07/09/2018 Mobitz type II atrioventricular block 07/09/2018 Seasonal allergies 02/28/2018 Immunizations No known immunizations Social History Tobacco Use Types Packs/Day Years Used Date Smoking Tobacco: Never Smokeless Tobacco: Never Tobacco Cessation:Counseling Given: Not Answered Alcohol Use Standard Drinks/Week Comments Yes 0 [...] on file Sexual Orientation Not on file Last Filed Vital Signs Vital Sign Reading Time Taken Comments Blood Pressure 138/84 01/18/2023 10:19 AM EDT Pulse 63 01/18/2023 10:19 AM EDT Temperature 36.5 C (97.7 F) 01/18/2023 10:19 AM EDT Respiratory Rate 18 01/18/2023 10:19 AM EDT Oxygen Saturation 100% 01/18/2023 10:19 AM EDT Inhaled Oxygen Concentration - - Weight 78 kg (172 lb) 01/18/2023 10:19 AM EDT Height 180.3 cm (5' 11 ) 01/18/2023 10:19 AM EDT Body Mass Index 23.99 01/18/2023 10:19 AM EDT Plan of Treatment Health Maintenance Due Date Last Done Comments Adult Td,Tdap Booster 1949 LIPID PANEL 1949 DEPRESSION SCREENING 1961 HEPATITIS C SCREENING 1967 COLOGUARD 1994 COLONOSCOPY 1994 COLORECTAL CANCER SCREENING 1994 FIT TEST 1994 FOBT 1994 SIGMOIDOSCOPY 1994 VIRTUAL COLONOSCOPY 1994 PNEUMOCOCCAL VACCINES (50+ years) (1 of 1 - PCV) 1999 ZOSTER VACCINES (1 of 2) 1999 RSV VACCINE (1 - 1-dose 75+ series) 2024 INFLUENZA VACCINE (#1) 2025 COVID-19 VACCINE (3 - 2024-2 6 season) 2025 04/04/2021, 03/12/2021 SMOKING STATUS SCREENING (On ce After 26 Yrs) Completed 01/18/2023 HEPATITIS A VACCINES Aged Out No long er eligible based on patient's age to complete this topic HIB VACCINES Aged Out No longer eligi ble based on patient's age to complete this topic MENINGOCOCCAL VACCINES (ACWY) Aged Out No longer eligible based on patient's age to complete this topic MENINGOCOCCAL VACCINES (B) Aged Out N o longer eligible based on patient's age to complete this topic Medical Devices Not on file Insurance [facility] MEDICARE REPLACEMENT [facility] MEDICARE REPLACEMENT [place] [id number] [place] [address] MEDICARE REPLACEMENT [place] [id number] [facility] MEDICARE [place] [place] [address] [place] [place] [address] MEDICARE REPLACEMENT MEDICARE REPLACEMENT Care Teams Automotive Alignment Specialist Relationship Specialty Start Date End Date Kamaljit Hernandez MD [address] [place] [phone] PCP - General Internal Medicine 01/18/23 Additional Source Comments The information contained in this document represents components of the legal health record. It is not the complete legal health record.[facility]
--- OUTSIDE RECORDS SUMMARY | 2025-05-04 10:12 | XMS_ITS | Encounter Summary ---
Author Organization [facility] Address [address] [facility] [address] [place] [address] Phone Care Team Providers Care Electrical Development Engineer Name Role Phone Pcp, Unknown Primary Care Provider Patrice Guerra DO Primary Care Provider [phone] Kamaljit Hernandez MD Primary Care Provider + Encounter Details Date Type Department Care Team (Late st Contact Info) Description 09/01/2018 Ancillary Orders Virtual Department [address] [place] [address] Melyssa Plummer, ANNEALING OPERATOR [address] [place] [phone] [email or web address] Testicular pain, unspecified Social History Tobacco Use Types Packs/Day Years [...] documented as of this encounter Results * US SCROTUM AND TESTICLES (09/02/2018 2:20 PM EST) Anatomical Region Laterality Modality Pelvis, Scrotum/Testes, Testes U ltrasound 09/02/2018 5:52 PM EST Impressions 09/02/2018 5:54 PM EST Normal study of the testicles. 14 mm x 9 mm x 7 mm spermatocele or epididymal cyst on the right. No other abnormalities demonstrated. POS [id number] Narrative 09/02/2018 5:54 PM EST HISTORY: Palpable lump on right in the right-sided pain. COMPARISON: None. FINDINGS: Right side of the scrotum: Testicle normal in size and echogenicity measuring 5.1 cm x 3.1 cm x 2.0 cm. No evidence of testicular masses. Normal blood flow demonstrated to the testicle. Well-circumscribed oval anechoic mass within the epididymal head measuring 14 mm x 9 mm x 7 mm. Small hydrocele. Left side of the scrotum: Testicle normal in size and echogenicity measuring 4.8 cm x 3.2 cm x 2.1 cm cm. No evidence of testicular masses. Normal blood flow demonstrated to the testicle. Epididymis appears normal. Procedure Note Surinder Sutton MD - 09/02/2018 HISTORY: Palpable lump on right in the right-sided pain. COMPARISON: None. FINDINGS: Right side of the scrotum: Testicle normal in size and echogenicitymeasuring 5.1 cm x 3.1 cm x 2.0 cm. No evidence of testicular masses.Normal blood flow demonstrated to the testicle. Well-circumscribed ovalanechoic mass within the epididymal head measuring 14 mm x 9 mm x 7 mm.Small hydrocele. Left side of the scrotum: Testicle normal in size and echogenicitymeasuring 4.8 cm x 3.2 cm x 2.1 cm cm. No evidence of testicular masses.Normal blood flow demonstrated to the testicle. Epididymis appearsnormal. IMPRESSION: Normal study of the testicles. 14 mm x 9 mm x 7 mm spermatocele orepididymal cyst on the right. No other abnormalities demonstrated. POS [id number] Melyssa Plummer CNP IMG US SCROTUM/PENIS Final Result documented in this encounter Visit Diagnoses Diagnosis Testicular pain, unspecified Testicular pain, unspecified documented in this encounter Care Teams Electrical Development Engineer Relationship Specialty Start Date End Date Pcp, Unknown PCP - General 07/15/17 09/01/18 Patrice Hurst DO [email or web address] PCP - General Internal Medicine 09/02/18 01/17/23 Kamaljit Hernandez MD [address] [place] [phone] PCP - General Internal Medicine 01/18/23 documented as of this encounter Additional Source Comments The information contained in this document represents components of the legal health record. It is not the complete legal health record.[facility]
--- OUTSIDE RECORDS SUMMARY | 2025-05-04 10:12 | XMS_ITS | Clinical Summary ---
Author Organization [facility] [employer] Address [address] [place] [address] 7 [place] [address] Care Team Providers Care Specialist Wound Care Name Role Phone Unavailable Primary Care Provider Unavailabl e Allergies Active Allergy Reactions Criticality Noted Date Comments Sulfa Antibiotics Unknown 07/08/2017 Medications No known medications Encounters Date Type Department Care Team Description 04/29/2025 9:00 AM EDT Office Visit [facility] [address] [place] [address] [phone] Jolene Hope from Last 3 Months Social [...] Description 11/01/2025 10:00 AM EDT Office Visit [facility] [address] [place] [address] [phone] Jolene Hope [address] [place] [address] [phone] Health Maintenance Due Date Last Done Comments [...] 1999 Dental X-Ray: Full Mouth 09/01/2015 08/31/2012 RSV Patients and Patients Aged 60 years or older (1 - 1-dose 75+ series) 2024 COVID-19 Vaccine (3 - season) 2025 04/04/2021, 03/12/2021 Influenza Vaccine (#1) 2025 Dental X-Ray: Bitewings 09/09/2025 09/08/19, 07/08/2024, 08/28/2023, Additional history exists Dental Oral Exam 10/28/2025 04/29/2025, , 03/04/2024, Additional history exists Dental Prophylaxis 10/28/2025 04/29/2025, 0 09/08/2024, 03/04/2024, Additional history exists Tobacco Screening 04/29/2026 04/29/2025 DTaP/Tdap/Td Vaccines (2 - Td or Tdap) [...] Procedure Name Priority Date/Time Associated Diagnosis Comments PERIODIC ORAL EVALUATION - ESTABLISHED PATIENT Routine 04/29/2025 9:00 AM EDT PROPHYLAXIS - ADULT Routine 04/29/2025 9 :00 AM EDT BITEWINGS - 4 RADIOGRAPHIC IMAGES Routine 09/08/2024 9:00 AM EST from Last 3 Months or Most Recently Relevant to Health Maintenance Insurance [facility] FULL DENTAL - N FULL (MEDICAID) DENTAL - [facility] PPO [place] [id number]
--- OUTSIDE RECORDS SUMMARY | 2025-05-04 10:12 | XMS_ITS | Encounter Summary ---
Author Organization [facility] Address [address] [place] [address] [place] [address] Phone Care Team Providers Care Field Horticultural Specialty Grower Name Role Phone Patrice Hurst DO Primary Care Provider [phone] Kamaljit Hernandez MD Primary Care Provider + Encounter Details Date Type Department Care Team (Latest Contact Info) Description 04/29/2019 Transcribe Orders Virtual Department [address] [place] [address] Heydi Soto PA-C [address] [place] [address] Radiculopathy, lumbar region (Primary Dx) Social History [...] unspecified documented in this encounter Care Teams Field Horticultural Specialty Grower Relationship Specialty Start Date End Date Patrice Hurst DO PCP - General Internal Medicine 09/02/18 01/17/23 Kamaljit Hernandez MD [address] [place] [address] [place] [phone] PCP - General Internal Medicine 01/18/23 documented as of this encounter Additional Source Comments The information contained in this document represents components of the legal health record. It is not the complete legal health record.[facility]
== END 2025-05-04 16:30 | disposition home or self-care (01) ==
LOC: HO.HUSH 08:32
PROVIDERS: PCP Family Medicine; Visit Provider Urology
DX: C61 Malignant neoplasm of prostate (principal); Z19.1 Hormone sensitive malignancy status
CPT/HCPCS: 99213; G2211

== ENCOUNTER 2025-06-29 10:43 | Outpatient (AMB) | payer MEDICARE, SELFPAY ==
--- OUTSIDE RECORDS SUMMARY | 2022-03-23 11:22 | XMS_ITS | Encounter Summary ---
Author Organization [facility] Address [address] [facility] [address] [place] [phone] Phone Care Team Providers Care Endless Belt Finisher Name Role Phone Patrice Hurst DO Primary Care Provider [phone] Encounter Details Date Type Department Care Team (Late Contact Info) Description 03/23/2022 12:22 PM EDT Hospital Encounter [facility] [address] [place] [id number] Melyssa Plummer CNP [address] [place] [id number] [email or web address] Social History Tobacco Use Types Packs/Day Years Used Date Smoking Tobacco: Never Smokeless Tobacco: Never Alcohol Use Standard Drinks/Week Comments Yes 0 (1 standard drink = 0.6 oz pure alcohol) once a week-1-2 drinks wine or hard cider Education Answer Date Recorded Are you interested in more education? Not on yoni e 12/14/2022 Are you concerned about learning? Not on file 12/14/2022 No 12/14/2022 No 12/14/2022 Digital Access Answer Date Recorded No 01/12/2023 No 01/12/2023 Reliable internet access at home? Not on file 01/12/2023 Device with a working camera? Not on file Sex and Gender Information Value Date Recorded Sex Assigned at Not on file Legal Sex Male 10:04 PM EDT Gender Identity Not on file Sexual Orientation Not on file documented as of this encounter Plan of Treatment Upcoming Encounters Date Type Department Care Team (Late st Contact Info) Description 08/05/2025 9:00 AM EST Office Visit [facility] [address] [place] [address] Unknown, Unknown, Shante Nelson, QUALITY COMPLIANCE MANAGER [address] [place] [address] documented as of this encounter Procedures Procedure Name Priority Date/Time Associated Diagnosis Comments XR RIBS 3 OR MORE VIEWS WITH PA CHEST (RIGHT) Routine 03/23/2022 12:36 PM EDT Rib pain on right side documented in this encounter Results * XR RIBS 3 OR MORE VIEWS WITH PA CHEST (RIGHT) (03/23/2022 12:36 PM EDT) Anatomical Region Laterality Modality Chest Computed Radiogr aphy 03/23/2022 1:11 PM EDT Impressions 03/23/2022 1:45 PM EDT No displaced rib fracture. ATTESTATION: Kathy Nayak as teaching physician, have reviewed the images for this case and if necessary edited the report originally created by Marlo Aguila. Narrative 03/23/2022 1:45 PM EDT XR RIBS 3 OR MORE VIEWS WITH PA CHEST (RIGHT) COMPARISON: Chest radiograph dated July 10, 2013. FINDINGS: No displaced rib fracture. PA evaluation of the chest demonstrates no focal consolidation, pleural effusion, pulmonary edema, or pneumothorax. Cardiomediastinal silhouette is normal. Procedure Note Kathy Joya MD - 03/23/2022 XR RIBS 3 OR MORE VIEWS WITH PA CHEST (RIGHT) COMPARISON: Chest radiograph dated July 10, 2013. FINDINGS: No displaced rib fracture. PA evaluation of the chest demonstrates no focal consolidation, pleuraleffusion, pulmonary edema, or pneumothorax. Cardiomediastinal silhouetteis normal. IMPRESSION: No displaced rib fracture. ATTESTATION: Kathy Nayak as teaching physician, have reviewed theimages for this case and if necessary edited the report originally createdby Marlo Aguila. Melyssa Plummer QUALITY COMPLIANCE MANAGER IMG XR CHEST Final Resul t documented in this encounter Visit Diagnoses Not on filedocumented in this encounter Care Teams Endless Belt Finisher Relationship Specialty Start Date End Date Patrice Hurst DO [email or web address] PCP - General Internal Medicine 09/02/18 01/17/23 documented as of this encounter Additional Source Comments The information contained in this document represents components of the legal health record. It is not the complete legal health record.[facility]
--- NOTE | 2025-06-29 10:46 | MHC.PC.OV ---
Vital Signs 06/29/25 10:51 06/29/25 11:11 Height 5 ft 11 in Weight 165 lb 2 oz BMI 23.0 BP 141/78 H 136/74 Blood Pressure Location Rt brachial Rt brachial Position Sitting Sitting Respiration 16 Pulse 70 Pulse Source Pulse Oximeter Temp 97.5 F Temp Source Oral Pulse Oximetry (%) 99 Oxygen Delivery Method Room Air Intake Visit Reasons: tingling and numbness in both hands Intake Note: patient here c/o tingling and numbness in both hands for about a year Butter Printer Required: No Allergies Sulfa (Sulfonamide Antibiotics) Allergy (Intermediate, Verified 06/29/25 11:08) Unknown Medication List - Last Reconciled 06/29/25 by Hue Turner CNP No Known Home Meds Tobacco use date assessed: 06/29/25 Fall risk assessment: No Falls in past year Last assessed Fall Risk: 06/29/25 Dental Screening Dental Screen Date: 06/29/25 Did you have a dental visit in the last 12 months?: Yes Did you have a dental problem in the last 6 months where you did not have access to dental care?: No Was dental information given to patient?: Patient has dentist HPI HPI Comments History of Present Illness Details 74-year-old male presents with complaints of numbness to both hands upon waking up every morning. His symptoms have been ongoing for about a year and has progressively increased in intensity. He usually sleeps on his sides but noticed, 3-4 months ago, that he would have the symptoms when lying on his back. The symptoms would resolved after he gets out of bed. He has never been taking any medication or had a workup for his symptoms. He denies tingling. [facility] Medical History Stroke Inguinal hernia Surgical History Hx of inguinal hernia surgery History of knee surgery History of hand surgery Family History (Updated 02/05/25 @ 12:10 by Addie Flores MA) Mother Cancer Father Cardiovascular disease Social History (Updated 02/05/25 @ 12:11 by Addie Flores MA) Household Members: None Housing: Other Housing Other:: Mobile home 75 years or older and lives alone: No Alcohol intake: current Alcohol intake frequency: a few times a week Alcohol type: wine Patient Tobacco Use Status: Never used Tobacco e-Cigarette/Vaping Use: Never Used Second Hand Smoke Exposure: No service: No Current occupational status: retired Current occupational exposures/hazards: No Cognitive needs: No Hearing needs: No Vision needs: No Questionnaire Thrive Questionnaire Date Thrive assessed: 08/20/24 I am a: Patient What is your living situation today?: I have a steady place to live Within the past 12 months, did the food you bought not last and you didn't have the money to get more?: Never true Within the past 12 months, did you worry whether your food would run out before you got money to buy more?: Never true Do you have trouble paying for medicines?: No Do you have trouble getting transportation to medical appointments?: No Do you have trouble paying your heating and electricity bill?: No Do you have trouble taking care of your child, family member or friend?: No Do you have trouble with day-to-day activities such as bathing, preparing meals, shopping, managing finances, etc.?: No Are you currently unemployed and looking for a job?: I choose not to answer this question Are you interested in more education?: I choose not to answer this question Please select the resources that you would like help with: Utilities Currently or been in a relationship where the following occur: No concerns reported THRIVE Score: 0 AAMIR-7 AMB Questionnaire AAMIR-7 Date AAMIR - 7 assessed: 01/31/24 Source: Developed by Drs. Derrick Garcia, Sirena Whitlock, Moo Lynn and colleagues, with an educational maycol from [employer]. Review of Systems Const Details: Const Denies chills, Denies fatigue, Denies fever(s), Denies headache(s) and Denies weakness ENT Denies dizziness and Denies headache(s) Card Denies chest pain, Denies lightheadedness, Denies dyspnea and Denies other (Palpitations) Resp Denies cough, Denies dyspnea, Denies wheezing and Denies other ( shortness of breath) GI Denies abdominal pain, Denies melena, Denies hematochezia, Denies change in bowel habits, Denies dyspepsia and Denies nausea Denies hematuria and Denies dysuria Musc Reports as per HPI Skin/Breast Denies rash, Denies unusual bruising and Denies wounds Neuro Denies abnormal gait, Denies dizziness, Denies headache(s), Denies memory loss, Reports numbness, Denies Sensory deficit (Neuro), Denies tingling and Denies weakness Psych Denies anxiety, Denies depression, Denies memory loss Endo Denies cold intolerance, Denies fatigue, Denies heat intolerance, Denies polydipsia and Denies polyuria Aller/Immun Denies wheezing Physical exam (Primary Care) Vital Signs: Last Vital Signs Temp 97.5 F 06/29/25 10:51 Pulse 70 06/29/25 10:51 Resp 16 06/29/25 10:51 BP 141/78 H 06/29/25 10:51 Pulse Ox 99 06/29/25 10:51 Oxygen Delivery Method Room Air 06/29/25 10:51 BMI result Body Mass Index 23.0 Tobacco/Smoking Status: Tobacco use Status Tobacco use date assessed 06/29/25 06/29/25 10:55 Patient Tobacco Use Status Never used Tobacco 06/29/25 10:48 e-Cigarette/Vaping Use Never Used 06/29/25 10:48 Thrive Assessment: Date of Thrive Assessment Date Thrive assessed 08/20/24 06/29/25 10:48 Currently or been in a relationship where the following occur: No concerns reported Const Other: General: no acute distress and well developed Nutritional Appearance: well nourished Orientation/consciousness: patient oriented x3 [facility] Head: Yes normocephalic and Yes atraumatic Eyes General: appearance normal, both eyes and all related structures Pupils: Equal, round and reactive pupils present EOM: EOMs intact bilaterally Resp Effort & Inspection: normal respiratory effort Auscultation: clear to auscultation bilaterally Cardio Rate: regular rate Rhythm: regular rhythm Heart sounds: S1 normal heart sound present, S2 normal heart sound present, no gallops, no murmurs and no rubs Musc Normal physical exam of both hands. No overt injury or trauma Skin General: warm and dry. Normal skin color. Normal skin turgor Neuro General: patient oriented x3, gait normal and no focal neuro deficit Cranial nerves: Yes Equal, round and reactive pupils present Cognition (Neuro): normal cognition Gait exam (Neuro): Normal gait present Sensory Exam: No Sensory deficit (Neuro) Psych Appearance: grossly normal Affect: normal affect Attitude: cooperative Thought process: Normal thought process present Coding Level of Care Code Est Pt Level 3 (99102) Diagnoses Numbness in both hands R20.0 Assessment & Plan Assessment & Plan (1) Numbness in both hands: Code(s): R20.0 - Anesthesia of skin Category: Medical Plan: Normal physical exam of both hands. No overt injury or trauma. Advised to avoid lying on his hands. Will check labs and make changes as needed. Otherwise follow-up with PCP. Verbalized understanding and agreed with the plan. Orders: Orders Magnesium Today R20.0 - Anesthesia of skin Vitamin D 25-OH Total Today R20.0 - Anesthesia of skin Complete Blood Count no Diff Today R20.0 - Anesthesia of skin Basic Metabolic Panel Today R20.0 - Anesthesia of skin
[2025-06-29 10:51] VITALS: BP 141/78; PULSE 70; RESP 16; TEMP 36.4; O2SAT 99; BMI 23.0
[2025-06-29 11:11] VITALS: BP 136/74
--- OUTSIDE RECORDS SUMMARY | 2025-06-29 12:25 | XMS_ITS | Clinical Summary ---
Author Organization [facility] Health Address [address] [place] [address] Care Team Providers Care Flight Operations Specialist Name Role Phone Unavailable Primary Care [...]
--- OUTSIDE RECORDS SUMMARY | 2025-06-29 12:25 | XMS_ITS | Encounter Summary ---
Author Organization [facility] Health Address [address] [place] [address] Care Team Providers Care Phone Circuit Operator Name Role Phone Unavailable Primary Care Provider Unavailabl e Prior Encounters Date Type Department Care Team Description 09/07/2019 Converted 13x Documents [facility] [address] [place] [address] <No scans attached> 09/07/2019 Converted CPS Chart Documents [facility] [address], [facility] [address] [place] [phone] <No scans attached> 09/07/2019 Converted 13x Documents [facility] [address], [facility] [address] [place] [phone] <No scans attached> Plan of Treatment Not on file Procedures Procedure Name Priority Date/Time Associated Diagnosis Comments NC X-RAY Routine 10/05/2019 1:00 AM [facility] CORE BUILDUP, INCLUDING ANY PINS WHEN REQUIRED Routine 09/25/2019 1:00 AM [facility] 28 CEMENT CROWN Routine 09/25/2019 1:00 AM [facility] 28 ENDODONTIC THERAPY, PREMOLAR TOOTH (EXCLUDING FINAL ORIENTAL ORTHODOX) Routine 09/25/2019 1:00 AM MST 28 CEREC [...] MISSED APPOINTMENT Routine 09/23/2019 1: 00 AM [facility] Visit Diagnoses Not on file
--- OUTSIDE RECORDS SUMMARY | 2025-06-29 12:25 | XMS_ITS | Encounter Summary ---
Author Organization [facility] Address [address] [place] [address] [place] [phone] Phone Care Team Providers Care Jewel Supervisor Name Role Phone Pcp, Unknown Primary Care Provider Patrice Guerra DO Primary Care Provider [phone] Kamaljit Hernandez MD Primary Care Provider + Encounter Details Date Type Department Care Team (Late st Contact Info) Description 09/01/2018 Ancillary Orders Virtual Department [address] [place] [address] Melyssa Plummer, DRAG SAWYER [address] [place] [phone] [email or web address] Testicular pain, unspecified Social History Tobacco Use [...] Description 08/05/2025 9:00 AM EST Office Visit [facility] [address] [place], [place] [phone] Unknown, Unknown, Shante Nelson, DRAG SAWYER [address] [place], [place] [phone] documented as of this encounter Results * [...] right. No other abnormalities demonstrated. POS [id number] us Melyssa Plummer DRAG SAWYER IMG US SCROTUM/PENIS Final Result documented in this encounter Visit Diagnoses Diagnosis Testicular pain, unspecified Testicular pain, unspecified documented in this encounter Care Teams Jewel Supervisor Relationship Specialty Start Date End Date Pcp, Unknown PCP - General 07/15/17 09/01/18 Patrice Hurst DO PCP - General Internal Medicine 09/02/18 01/17/23 Kamaljit Hernandez MD [address] [place] [phone] PCP - General Internal Medicine 01/18/23 documented as of this encounter Additional Source Comments The information contained in this document represents components of the legal health record. It is not the complete legal health record.[facility]
--- OUTSIDE RECORDS SUMMARY | 2025-06-29 12:25 | XMS_ITS | Clinical Summary ---
Author Organization [facility] Address [address] [facility] [address] [place] [phone] Phone Care Team Providers Care Deputy Sheriff Bailiff Name Role Phone Kamaljit Hernandez MD Primary [...] 01/18/2023 10:19 AM EDT Plan of Treatment Upcoming Encounters Date Type Department Care Team (Late st Contact Info) Description 08/05/2025 9:00 AM EST Office Visit [facility] 10 [place] [address] Unknown, Unknown, MD Bishop, Shante Huddleston, ROTOR WINDER 10 [place] [address] [email or web address] Health Maintenance Due Date Last Done Comments [...] patient's age to complete this topic IPV VACCINES Aged Out No longer eligi ble based on patient's age to complete this topic MENINGOCOCCAL VACCINES (ACWY) Aged Out No longer eligible based on patient's age to complete this topic MENINGOCOCCAL VACCINES (B) Aged Out N o longer eligible based on patient's age to complete this topic Medical Devices Not on [place] [address] [place] [address] [place] [address] [place] [address] [place] [place] [address] MEDICARE REPLACEMENT [facility] MEDICARE REPLACEMENT [facility] MEDIC[place] [address] [place] [address] [place] [place] [address] MEDICARE REPLACEMENT Care Teams Deputy Sheriff Bailiff Relationship Specialty Start Date End Date Kamaljit Hernandez MD [address] [facility] 1 [place] [address] PCP - General Internal Medicine 01/18/23 Additional Source Comments The information contained in this document represents components of the legal health record. It is not the complete legal health record.[facility]
--- OUTSIDE RECORDS SUMMARY | 2025-06-29 12:25 | XMS_ITS | Encounter Summary ---
Author Organization [facility] Address [address] [place] [address] Phone Care Team Providers Care Angle Dozer Operator Name Role Phone India Wilson MD Primary Care Provider Pcp, Unknown Primary Care Provider Patrice Guerra DO Primary Care Provider [phone] Kamaljit Hernandez MD Primary Care Provider + Encounter Details Date Type Department Care Team (Late Contact Info) Description 06/17/2017 Transcribe Orders [facility], X-Ray - [address] [address] System, Provider Not In, PhD Partners [address] [address] Sinus congestion (Primary Dx) Social History Tobacco Use Types Packs/Day Years Used Date Smoking Tobacco: Never Assessed Sex and Gender Information Value Date Recorded Sex Assigned at Not on file Legal Sex Male 10:04 PM EDT Gender Identity Not on file Sexual Orientation Not on file documented as of this encounter Plan of Treatment Upcoming Encounters Date Type Department Care Team (Late Contact Info) Description 08/05/2025 9:00 AM EST Office Visit [facility] [address] [place] [address] Unknown, Unknown, Shante Nelson, SEPTIC TANK SERVICE TECHNICIAN [address] [place] [address] [email or web address] documented as of this encounter Visit Diagnoses Diagnosis Sinus congestion- Primary Other diseases of nasal cavity and sinuses documented in this encounter Care Teams Angle Dozer Operator Relationship Specialty Start Date End Date India Wilson MD [address] [place] [address], [address] [place] [address] [email or web address] PCP - General General Surgery 06/17/17 07/14/17 Pcp, Unknown PCP - General 07/15/17 09/01/18 Patrice Hurst DO PCP - General Internal Medicine 09/02/18 01/17/23 Kamaljit Hernandez MD [address] [address] PCP - General Internal Medicine 01/18/23 documented as of this encounter Additional Source Comments The information contained in this document represents components of the legal health record. It is not the complete legal health record.[facility]
--- OUTSIDE RECORDS SUMMARY | 2025-06-29 12:25 | XMS_ITS | Encounter Summary ---
Author Organization [employer] Address 75 [facility] 7t [place] [address] Care Team Providers Care Paper Products Supervisor Name Role Phone Unavailable Primary Care [...] Description 11/01/2025 10:00 AM EDT Office Visit [facility] 91 [place], [place] [phone] Jolene Hope 91 [place] [address] documented as of this encounter Visit Diagnoses Not on filedocumented in this encounter
--- OUTSIDE RECORDS SUMMARY | 2025-06-29 12:25 | XMS_ITS | Clinical Summary ---
Author Organization [employer] Address [address] [place] [address] 7 [place] [address] Care Team Providers Care Railroad Purchasing Agent Name Role Phone Unavailable Primary Care Provider Unavailabl e Allergies Active Allergy Reactions Criticality Noted Date Comments Sulfa Antibiotics Unknown 07/08/2017 Medications No known medications Encounters Date Type Department Care Team Description 04/29/2025 9:00 AM EDT Office Visit [facility] [address] [place] [address] [phone] Jolene Hope from Last 3 Months Social [...] Description 11/01/2025 10:00 AM EDT Office Visit [facility] [address] [place] [address] [phone] Jolene Hope [address] [place] [address] [phone] Health Maintenance Due Date Last Done Comments [...] DENTAL - N FULL (MEDICAID) DENTAL - [facility] PPO [place] [phone]
--- OUTSIDE RECORDS SUMMARY | 2025-06-29 12:25 | XMS_ITS | Encounter Summary ---
Author Organization [employer] Address 75 [facility] 7t [place] [address] Care Team Providers Care Car Repairer Name Role Phone Unavailable Primary Care Provider Unavailabl e Encounter Details Date Type Department Care Team (Latest Contact Info) Description 01/13/2019 Abstract [facility] CONVERSIONS Dental, Provider, DDS Social [...] Description 11/01/2025 10:00 AM EDT Office Visit [facility] [address] [place] [address] Jolene Hope 91 [place], [place] [phone] documented as of this encounter Visit Diagnoses Not on filedocumented in this encounter
--- OUTSIDE RECORDS SUMMARY | 2025-06-29 12:25 | XMS_ITS | Encounter Summary ---
Author Organization [facility] Address [address] [place] [address] [place] [address] Phone Care Team Providers Care Clock Assembler Name Role Phone India Wilson MD Primary Care Provider [phone] Pcp, Unknown Primary Care Provider Patrice Guerra DO Primary Care Provider [phone] Kamaljit Hernandez MD Primary Care Provider + Encounter Details Date Type Department Care Team (Latest Contact Info) Description 06/17/2017 Transcribe Orders [facility], X-Ray - [address] [address] Melyssa Plummer, ENGAGEMENT EXECUTIVE [address] [place] [address] Sinus pressure (Primary Dx) Social History Tobacco [...] Description 08/05/2025 9:00 AM EST Office Visit [facility] 10 [place], [place] [phone] Unknown, Unknown, Shante Nelson, ENGAGEMENT EXECUTIVE 10 [place], [place] [phone] documented as of this encounter Results * [...] sinuses documented in this encounter Care Teams Clock Assembler Relationship Specialty Start Date End Date India Wilson MD [address] [place] [address], [facility] 8 [place] [address] PCP - General General Surgery 06/17/17 07/14/17 Pcp, Unknown PCP - General 07/15/17 09/01/18 Patrice Hurst DO PCP - General Internal Medicine 09/02/18 01/17/23 Kamaljit Hernandez MD [address] [place] [phone] PCP - General Internal Medicine 01/18/23 documented as of this encounter Additional Source Comments The information contained in this document represents components of the legal health record. It is not the complete legal health record.[facility]
--- OUTSIDE RECORDS SUMMARY | 2025-06-29 12:25 | XMS_ITS | Encounter Summary ---
Author Organization [employer] Address 75 [facility] 7t [place] [address] Care Team Providers Care Watch Crystal Edge Grinder Name Role Phone Unavailable Primary Care Provider Unavailabl e Encounter Details Date Type Department Care Team (Latest Contact Info) Description 03/06/2021 Abstract [facility] CONVERSIONS Dental, Provider, DDS Social History Tobacco [...] Description 11/01/2025 10:00 AM EDT Office Visit [facility] DENTAL 91 [place] [address] Jolene Hope 91 [place] [address] documented as of this encounter Visit Diagnoses Not on filedocumented in this encounter
--- OUTSIDE RECORDS SUMMARY | 2025-06-29 12:25 | XMS_ITS | Encounter Summary ---
Author Organization [facility] Address [address] [place] [address] Phone Care Team Providers Care Janitor Supervisor Name Role Phone Pcp, Unknown Primary Care Provider Patrice Guerra DO Primary Care Provider [phone] Kamaljit Hernandez MD Primary Care Provider + Encounter Details Date Type Department Care Team (Late Contact Info) Description 07/15/2017 Procedure Pass [place] Admitting Dept - Virtual Department [address] [place] [phone] Social History Tobacco Use Types Packs/Day Years [...] Upcoming Encounters Date Type Department Care Team ([facility] Contact Info) Description 08/05/2025 9:00 AM EST Office Visit [facility] [address] [place] [address] Unknown, Unknown, Shante Nelson, E BUSINESS CONSULTANT 10 [place] [address] [email or web address] documented as of this encounter Visit Diagnoses Not on filedocumented in this encounter Care Teams Janitor Supervisor Relationship Specialty Start Date End Date Pcp, Unknown PCP - General 07/15/17 09/01/18 Patrice Hurst DO [email or web address] PCP - General Internal Medicine 09/02/18 01/17/23 Kamaljit Hernandez MD [address] [phone] PCP - General Internal Medicine 01/18/23 documented as of this encounter Additional Source Comments The information contained in this document represents components of the legal health record. It is not the complete legal health record.[facility]
--- OUTSIDE RECORDS SUMMARY | 2025-06-29 12:25 | XMS_ITS | Encounter Summary ---
Author Organization [facility] Address [address] [place] [phone] Phone Care Team Providers Care Manager Traffic Name Role Phone Patrice Hurst Primary Care Provider [phone] Kamaljit Hernandez MD Primary Care Provider + Encounter Details Date Type Department Care Team (Latest Contact Info) Description 04/29/2019 Transcribe Orders Virtual Department 30 [place] [address] Heydi Soto PA-C [address] [place] [address] [email or web address] Radiculopathy, lumbar region (Primary Dx) Social History [...] Description 08/05/2025 9:00 AM EST Office Visit [facility] 10 [place], [place] [phone] Unknown, Unknown, MD Bishop, Shante Huddleston, PATIENT ACCESS DIRECTOR 10 [place], [place] [phone] documented as of this encounter Visit Diagnoses Diagnosis Radiculopathy, lumbar region- Primary Thoracic or lumbosacral neuritis or radiculitis, unspecified documented in this encounter Care Teams Manager Traffic Relationship Specialty Start Date End Date Patrice Hurst DO [email or web address] PCP - General Internal Medicine 09/02/18 01/17/23 Kamaljit Hernandez MD [address] [place] [phone] PCP - General Internal Medicine 01/18/23 documented as of this encounter Additional Source Comments The information contained in this document represents components of the legal health record. It is not the complete legal health record.[facility]
== END 2025-06-29 11:25 | disposition home or self-care (01) ==
LOC: HO.HMCFM 10:44
PROVIDERS: PCP Family Medicine; Visit Provider Nurse Practitioner Family
DX: R20.0 Anesthesia of skin (principal)

== ENCOUNTER 2025-06-29 10:43 | Outpatient (REF) | payer MEDICARE, SELFPAY ==
--- OUTSIDE RECORDS SUMMARY | 2025-06-29 13:38 | XMS_ITS | Data Portability ---
Author Organization [place] - [facility], Telehealth Patient Home Address [address] [place] [address] Assessment Encounter Date Assessment Date Assessment LastModified [...] urinalysi s, dipstick 2018 019 abelanger 7 [facility], [address] [facility], [facility] [address], [place], [address], 9 10:22:21 CBC w/ auto diff 2018 RENEE Not available 9 08:16:28 CMP, serum or plasma 2018 RENEE Not available 9 08:16:27 hepatitis C Ab, serum 2018 abelanger 7 Not available 9 10:22:21 PSA, serum or plasma 2018 RENEE Not available 9 08:16:28 CBC w/ auto diff 2018 [facility], [address] [place] [address], [address], [place], [address], 9 08:25:27 culture, urine 2018 [facility], [address] [place] [address], [address], [place], [address], 9 08:25:27 erythrocy te sedimenta tion rate by westergre n method 2018 [facility], [address] [place] [address], [address], [place], [address], 9 08:25:27 lipid panel, blood 2017 RENEE Not available 8 08:06:53 CBC w/ auto diff 2017 RENEE Not available 8 08:06:53 CMP, serum or plasma 2017 RENEE Not available 8 08:06:53 urinalysi s, dipstick 2017 agatha [facility], [address] [place] [address], [address], [place], [address], 8 16:34:24 Referral physical therapist referral 2018 019 [facility], [address] [place], [address], 9 09:59:04 Procedures None recorded. Surgeries None recorded. Imaging US, testicle 2018 019 RENEE Not available 9 23:52:57 XR, shoulder 2017 018 RENEE Not available 8 08:44:48 XR, cervical spine, 2 or 3 view 2017 RENEE Not available 8 08:44:48 Medication Orders triamcino lone acetonide 0.1 % topical cream 2018 019 sbjuan pabloo [facility] # [facility] [place], [place], [address] [place], [address], 9 09:40:50 doxycycli ne hyclate 100 mg tablet 2018 019 sbucko [facility] [address] [place] [address], [place], [address] [place], [address], 9 14:45:15 Medrol (Js) 4 mg tablets in a dose pack 2017 018 tbalicki [facility] [address] [place] [address], [place], [address] [place], [address], 9 11:02:41 Patient TargetsNo targets recorded. Patient Instructions Encounter Date Encounter Id Patient Instructions Last Modified By Organization Details Last Modified Time 07/14/2018 [id number] rhythm strip, EKG* shahab Not available 07/21/2018 08:10:08 Discussed and explained advance directives such as standard forms to the . Face to face discussion lasted for a duration of ___ minutes. bren Not available 07/14/2018 14:56:29 09/01/2018 [id number] Call if any increased symptoms agatha Not available 09/01/2018 11:54:56 05/15/2019 [id number] sciatica: care instructions Not available 05/15/2019 14:30:34 07/13/2019 [id number] advance care planning: care instructions Not available 07/13/2019 10:22:21 Discussed and explained advance directives such as standard forms to the . Face to face discussion lasted for a [...] dipst ick Leukocytes Negati ve Not Available [facility] [address] [facility] [address] , [place], [address], 07/14/2018 15:45:13 07/14/20 18 07/14/2018 urina lysis , dipst ick Nitrite negati ve Not Available [facility] [address] [facility] [address], [place], [address], 07/14/2018 15:45:13 07/14/20 18 07/14/2018 urina lysis , dipst ick Urobilinogen .2 Not Available [facility] [address] [facility] [address], [place], [address], 07/14/2018 15:45:13 07/14/20 18 07/14/2018 urina lysis , dipst ick Protein Negati ve Not Available [facility] [address] [facility] [address], [place], [address], 07/14/2018 15:45:13 07/14/20 18 07/14/2018 urina lysis , dipst ick pH 6.5 Not Available [facility] [address] [facility] [address], [place], [address], 07/14/2018 15:45:13 07/14/20 18 07/14/2018 urina lysis , dipst ick Blood Negati ve Not Available [facility] [address] [facility] [address], [place], [address], 07/14/2018 15:45:13 07/14/20 18 07/14/2018 urina lysis , dipst ick Specific Clear[place] 1.015 Not Available [facility] [address] [facility] [address], [place], [address], 07/14/2018 15:45:13 07/14/20 18 07/14/2018 urina lysis , dipst ick Ketone Negati ve Not Available [facility] [address] [facility] [address], [place], [address], 07/14/2018 15:45:13 07/14/20 18 07/14/2018 urina lysis , dipst ick Bilirubin Negati ve Not Available [facility] [address] [facility] [address], [place], [address], 07/14/2018 15:45:13 07/14/20 18 07/14/2018 urina lysis , dipst ick Glucose Negati ve Not Available [facility] [address] [facility] [address], [place], [address], 07/14/2018 15:45:13 07/14/20 18 07/14/2018 urina lysis , dipst ick Appearance Clear Not Available [facility] [address] [facility] [address], [place], [address], 07/14/2018 15:45:13 07/14/20 18 07/14/2018 urina lysis , dipst ick Color Pale Yellow Not Available [facility] [address] [facility] [address], [place], [address], 07/14/2018 15:45:13 07/13/20 19 07/13/2019 urina lysis , dipst ick Leukocytes Negati ve Not Available [facility] [address] [facility] [address], [place], [address], 07/13/2019 09:41:37 07/13/2007/13/2019 urina lysis , dipst ick Nitrite negati ve Not Available [facility] [address] [facility] [address], [place], [address], 07/13/2019 09:41:37 07/13/2007/13/2019 urina lysis , dipst ick Urobilinogen .2 Not Available [facility] [address] [facility] [address], [place], [address], 07/13/2019 09:41:37 07/13/2007/13/2019 urina lysis , dipst ick Protein Negati ve Not Available [facility] [address] [facility], [place], [address], 07/13/2019 09:41:37 07/13/2007/13/2019 urina lysis , dipst ick pH 7.0 Not Available [facility] [address] [facility], [place], [address], 07/13/2019 09:41:37 07/13/2007/13/2019 urina lysis , dipst ick Blood Negati ve Not Available [facility] [address] [facility] [address], [place], [address], 07/13/2019 09:41:37 07/13/2007/13/2019 urina lysis , dipst ick Specific [place] 1.020 Not Available [facility] [address], [place], [address], 07/13/2019 09:41:37 07/13/2007/13/2019 urina lysis , dipst ick Ketone Negati ve Not Available [facility] [address] [facility] [address], [place], [address], 07/13/2019 09:41:37 07/13/20 19 07/13/2019 urina lysis , dipst ick Bilirubin Negati ve Not Available [facility] [address] [facility] [address], [place], [address], 07/13/2019 09:41:37 07/13/20 19 07/13/2019 urina lysis , dipst ick Glucose Negati ve Not Available [facility] [address] [facility] [address], [place], [address], 07/13/2019 09:41:37 07/13/20 19 07/13/2019 urina lysis , dipst ick Appearance Clear Not Available [facility] [address] [facility] [address], [place], [address], 07/13/2019 09:41:37 07/13/20 19 07/13/2019 urina lysis , dipst ick Color Yellow Not Available [facility] [address] [facility] [address], [place], [address], 07/13/2019 09:41:37 07/16/20 18 07/15/2018 XR, cervi quinn spine , 2 or 3 view No observ ation record ed. [facility] (Radiology) [address] [place], [address], 07/18/2018 09:21:40 07/16/20 18 07/15/2018 XR, shoul gurdeep No observ ation record ed. [facility] (Radiology) [address] [place], [address], 07/18/2018 09:21:40 09/02/19 19 09/02/2018 moreno CAVAZOS No observ ation record ed. [facility] [address], [place], [address], 04/27/2019 15:00:27 Result Notes None recorded. Problems Name Problem SNOMED Code Status Onset Date Resolution Date Notes Provider Name and Address Organization Details Recorded Time Seasonal allergy 039046186 Active 2017 Melyssa Plummer NP, S [address] [place] [address], [address], [facility] Internal [facility] 8 15:05:50 History of emphysem a 99277446814 177334 Active 2017 mild Chiquita galloway [facility] 8 12:04:24 Frostbit e 547574649 Active 2017 left great toe Chiquita galloway [facility] 8 12:04:50 Mobitz type II atrioven tricular block 12605478 Active 2017 [facility] 12:05:26 Problem Notes None recorded. Procedures Surgical History Date Name Laterality Status Provider Name and Address Organization Details Recorded Time 03/01/20 14 colonoscopy completed Melyssa Plummer NP, S [address] [place] [address], [address], [facility] 07/14/2018 15:11:36 08/19/18 68 operative procedure on knee completed [address], [address], [facility] Internal [facility] 07/13/2019 10:12:06 08/19/18 67 Unlisted px hands/fingers completed [address], [address], [facility] 07/13/2019 10:12:31 Remove tonsils and adenoids completed [address], [address], [facility] Internal [facility] 07/13/2019 10:12:44 repair of inguinal hernia completed [address], [address], [facility] Internal [facility] 07/13/2019 10:13:02 Imaging Results None recorded. Procedure Notes None recorded. Medical Equipment None Reported. Allergies Allergen ID Allergen Name Allergen Category Reaction Reaction Severity Criticality Documentation Date Start Date Code Code System Note Provider Name and Address Organization Details Recorded Time 1866 Substance with sulfonami de structure and antibacte rial mechanism of action (substanc e) medicatio n Not available Not available Not available 02/28/2018 48266 8003 SNOMED Melyssa Plummer, MARIE, S [address] [place], [address], [facility] 8 15:05:10 2701 meclizine medicatio n Not available Not available Not available 09/01/2018 6676 RxNorm Chiquita Gallo [facility] 9 11:02:37 Medications Name Sig [...] Pulse oximetry Heart rate Body temperature Systolic And Diastolic Provider Name and Address Organization Details Last Updated DateTime 9 177.17 cm 25.6 kg/m2 24330.8 5 g 99 % 99 % 78 /min 98.1 [degF] 124/68 mm[Hg] Chiquita Gallo [facility] 9 11:04:04 Date Recorded Body height Body mass index (BMI) Body weight Heart rate Oxygen saturation Oxygen saturation in Arterial blood by Pulse oximetry Systolic And Diastolic Provider Name and Address Organization Details Last Updated DateTime 9 177.17 cm 24.7 kg/m2 73404.9 4 g 70 /min 99 % 99 % 130/76 mm[Hg] Chelita Menezes [facility] 9 14:46:35 Date Recorded Body height Body mass index (BMI) Body weight Heart rate Oxygen saturation Oxygen saturation in Arterial blood by Pulse oximetry Systolic And Diastolic Provider Name and Address Organization Details Last Updated DateTime 9 177.17 cm 24.6 kg/m2 24269.7 8 g 69 /min 98 % 98 % 110/80 mm[Hg] Chelita Menezes [facility] Internal [facility] 9 14:16:22 Date Recorded Systolic And Diastolic Provider Name and Address Organization Details Last Updated DateTime 07/13/2019 122/70 mm[Hg] November SUE Soto [address] [place] [address], [address] 07/13/2019 10:21:59 Date Recorded Body height Body mass index (BMI) Body weight Heart rate Oxygen saturation Oxygen saturation in Arterial blood by Pulse oximetry Provider Name and Address Organization Details Last Updated DateTime 9 177.17 cm 24.9 kg/m2 28675.6 1 g 71 /min 98 % 98 % [facility] 9 09:44:16 Date Recorded Body height Body mass index (BMI) Body weight Heart rate Oxygen saturation Oxygen saturation in Arterial blood by Pulse oximetry Systolic And Diastolic Provider Name and Address Organization Details Last Updated DateTime 8 177.17 cm 24.8 kg/m2 64636.1 7 g 72 /min 98 % 98 % 120/74 mm[Hg] Chiquita Gallo [facility] 8 15:00:35 Social History Question Answer Notes LastModified by [employer] Details LastModified Time Tobacco Smoking Status Never Smoker [facility] 07/14/2018 14:59:21 What Was The Date Of Your Most Recent Tobacco Screening? 09/01/2018 Information n ot available 03/12/2019 How Much Tobacco Do You Smoke? No Information not available 07/13/2019 How Many Years Have You Smoked Tobacco? 0 Information not available 07/13/2019 Sex: Unknown Functional Status Question Answer Note LastModified by [employer] Details LastModified Time Do you or have you ever used smokeless tobacco? Never used smokeless tobacco Information not available 07/13/2019 Do you or have you ever used e-cigarettes or vape? Never used electronic cigarettes Information not available 07/13/2019 Mental Status None recorded. Family History Relationship [...] Diagnosis SNOMED-CT Code Diagnosis ICD10 Code Diagnosis IMO Codes Diagnosis Note [id number] Patrice Hurst DO [facility] [address] [facility], [place] [address] 02/28/2018 14:55:21 03/04/2018 08:06:35 On examination - rash present 013750925 R21 [id number] Patrice Hurst DO [facility] [address] [facility],[place] [address] 07/14/2018 14:54:49 07/14/2018 15:46:20 Adult health examination 233595927 Z00.01 Screening for cardiovascular system disease 731388980 Z13.6 Pain in right arm 608795 004 M79.601 Atypical chest pain 1025 62157 R07.89 [id number] Patrice Hurst [facility] [address] [facility], [place] [address] 09/01/2018 10:52:36 09/01/2018 11:57:52 Pain in testicle 62773798 N50.819 [id number] Patrice Hurst [facility] [address] [facility], [place] [address] 04/27/2019 14:38:55 04/27/2019 15:14:55 Pain in right lower limb 385591556 M79.604 ? nerve impingemen t dvt very unlikely ibuprofen 800 mg tid prn has old oxycodone which is ok to take if in extreme pain [id number] Patrice Hurst [facility] [address] [facility], [place] [address] 05/15/2019 14:07:20 05/15/2019 14:32:51 Pruritic rash 47773205 L28.2 Sciatica 93877233 M54[place] [id number] Patrice Hurst [facility] [address] [facility], [place] [address] 07/13/2019 09:34:50 07/13/2019 10:27:49 Adult health examination 026869436 Z00.00 HCP - sister - debbi mora Active or passive immunization 369078532 Z23 refuses flu shot ama Screening for cardiovascular system disease 997963996 Z13.6 Vitamin D deficiency 347 97163 E55.9 Cough 85661919 R05 has dry/troat clearing habit - just [...] Recorded Advance Directives Directive None Recorded Payers Insurance Date Sequence Insurance Name Policy Number Policy Ramos Covered Member ID Ramos Member ID Guarantor Name 10/05/2020 1 [facility] (MEDICARE REPLACEMENT/ ADVANTAGE - HMO) [id number] [address] Urbano Selina [id number] Forest Selina Notes Date Note Type Note Provider Name a nd Address Organization Details Recorded Time 8 text/html Medicare Annual Wellness VisitReported by PatientSocial/Behavio ral HistoryFor diet and nutrition, patient reportshealthy diet. For fracture risk, patient reportsno history of fractures,no recent explained fracture,no sudden unexplained fractures, andno previous musculoskeletal injuries. For physical activity, patient reportsexercises on a regular basisandgood physical condition.Mental Status:For depression risk, patient reportsnever feels sad, empty, or tearful,no loss of interest in activities,no significant changes in weight,no sleep disturbances or insomnia,no agitation,no loss of energy,no feelings of worthlessness or guilt,no thoughts of suicide,no history of depression, andno history of mood disorders. For orientation, patient reportsno disorientation to time,no disorientation to date, andno disorientation to place. For concentration and memory, patient reportsno decreased concentrating abilityanddoes not forget words. For speech/motor difficulties, patient reportsno speech difficulties,no difficulty expressing formulated concepts,no difficulty with fine manipulative tasks,no difficulty writing/copying, anddoes not knock things over when trying to pick them up.Functional AbilityFor falls risk assessment, patient reportsdizziness/vert igobut reportsno frequent falls while walking,no fall in the past year, andno fall since last visit(recent episode, resolved). For hearing, patient reportsno loss of hearing(had recent hearing exam). For vision, patient reportsno vision problems. For activities of daily living, patient reportsable to bathe with limited or no assistance,able to contol urination and bowels,able to dress with limited or no assistance,able to feed self with limited or no assistance,able to get out of chair or bed with limited or no assistance,able to groom with limited or no assistance, andable to toilet with limited or no assistance. For instrumental activities of daily living, patient reportsable to do house work with limited or no assistance,able to grocery shop with limited or no assistance,able to manage medications with limited or no assistance,able to manage money with limited or no assistance,able to prepare meals with limited or no assistance, andable to use the phone with limited or no assistance. For home safety, patient reportsno unsafe stairs,no unsafe gas appliances,working smoke/co detectors,use of seatbelts,no vision or hearing loss while driving,no fire arms,has hand bars in the bathroom/shower, andgood lighting in the home. August 2017 had CP/SOB- diagnosed with anxiety, ? r/t meclizine ?'s pinched nerve in right arm. 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 Also C/O anterior left chest pain without associated symptoms Melyssa Plummer NP, S [address] [place], [address], [facility] 07/14/2018 16:35:01 9 text/html ROS as noted in the HPI Hx: orchiditis Some recent ( 1 week ) on/off testicular discomfort ( 2 or 3 on pain scale ) More on left side No penile discharge, no rash No fever Denies back, abdominal pain, minimal suprapubic discomfort No hematuria, No BRBPR Melyssa Plummer NP, S [address] [place], [address], [facility] 09/01/2018 11:55:11 9 text/html ROS as noted in the HPI c/o pain in the hamstring area for 1 week, but no injury, just woke up with some tension initially played 11 games of pickle ball yesterday and also has tightness in [...] than when sitting [place] drive was to [place], but the pain preceded this trip has [...] headaches, dizziness/lightheaded ness, rashes, or nail changes. GRISELDA FinnRUBY [address] [place], [address], [facility] 04/27/2019 15:11:32 9 text/html ROS as noted in the HPI rash right leg woke up with red [...] headaches, dizziness/lightheaded ness, rashes, or nail changes. GRISELDA FinnRUBY [address] [place], [address], [facility] 05/18/2019 13:40:00 9 text/html Medicare Annual Wellness VisitReported by PatientSocial/Behavio ral HistoryFor fracture risk, patient reportshistory of fracturesbut reportsno recent explained fracture,no sudden unexplained fractures, andno previous musculoskeletal injuries. For diet and nutrition, patient reportshealthy dietanddiscussed vitamin and supplement use. For physical activity, patient reportsexercises on a regular basisandgood physical condition.Mental Status:For depression risk, patient reportsnever feels sad, empty, or tearful,no loss of interest in activities,no significant changes in weight,no sleep disturbances or insomnia,no agitation,no loss of energy,no feelings of worthlessness or guilt,no thoughts of suicide,no history of depression, andno history of mood disorders. For orientation, patient reportsno disorientation to time,no disorientation to date, andno disorientation to place. For concentration and memory, patient reportsno decreased concentrating ability,no memory lapses or loss, anddoes not forget words. For speech/motor difficulties, patient reportsno speech difficulties,no difficulty expressing formulated concepts,no difficulty with fine manipulative tasks,no difficulty writing/copying,no slowed reaction time, anddoes not knock things over when trying to pick them up.Functional AbilityFor hearing, patient reportsno loss of hearing. For vision, patient reportsno vision problems. For activities of daily living, patient reportsable to bathe with limited or no assistance,able to contol urination and bowels,able to dress with limited or no assistance,able to feed self with limited or no assistance,able to get out of chair or bed with limited or no assistance,able to groom with limited or no assistance, andable to toilet with limited or no assistance. For instrumental activities of daily living, patient reportsable to do house work with limited or no assistance,able to grocery shop with limited or no assistance,able to manage medications with limited or no assistance,able to manage money with limited or no assistance,able to prepare meals with limited or no assistance, andable to use the phone with limited or no assistance. For falls risk assessment, patient reportsno frequent falls while walking,no fall in the past year,no fall since last visit, andno dizziness/vertigo. For home safety, patient reportsno unsafe radha hazzards,no unsafe stairs,no unsafe gas appliances,working smoke/co detectors,wears protective head gear for biking/high velocity,use of seatbelts,no vision or hearing loss while driving,has hand bars in the bathroom/shower,good lighting in the home, andreviewed sun protection.ROS as noted in the HPI November CharlesSUE gonzales [address] [place] [address], [address], [facility] 07/13/2019 10:27:14
[2025-06-29 14:11] LABS: Hematocrit 44.8 % (42.0-52.0); Hemoglobin 14.2 g/dl (14.0-18.0); Mean Corpuscular HGB Conc 31.7 g/dl (31.0-36.0); Mean Corpuscular Hemoglobin 30.5 pg (27.0-33.0); Mean Corpuscular Volume 96.3 fL (80.0-98.0); NRBC Abs Auto 0.000 X10*3/uL (0.0-0.012); NRBC Pct Auto 0.0 /100WBC (0.0-0.2); Platelet Count 285 X10*3/uL (160-400); Red Blood Count 4.65 X10*6/uL (4.60-5.80); White Blood Count 5.8 X10*3/uL (4.8-10.8)
== END 2025-06-29 10:44 | disposition home or self-care (01) ==
LOC: HO.WFDLDS 10:43
PROVIDERS: Nurse Practitioner Family; Visit Provider Nurse Practitioner Family
DX: R20.0 Anesthesia of skin (principal); Z00.00 Encounter for general adult medical examination without abnormal findings; R19.5 Other fecal abnormalities; R63.4 Abnormal weight loss
CPT/HCPCS: 36415; 84443; 85027; 99212

== ENCOUNTER 2025-07-06 08:26 | Outpatient (AMB) | payer MEDICARE, SELFPAY ==
--- NOTE | 2025-07-06 08:27 | MHC.PC.OV ---
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 Allergies Sulfa (Sulfonamide Antibiotics) Allergy (Intermediate, Verified 07/06/25 08:31) Unknown Medication List - Last Reconciled 07/06/25 by Josue Ren MD No Known Home Meds Tobacco use date assessed: 07/06/25 Fall risk assessment: No Falls in past year Last assessed Fall Risk: 07/06/25 Dental Screening Dental Screen Date: 07/06/25 Did you have a dental visit in the last 12 months?: Yes Did you have a dental problem in the last 6 months where you did not have access to dental care?: No Was dental information given to patient?: Patient has dentist HPI follow up bloodwork HPI Details Ongoing paresthesia both hands which he notes occurs while he is sleeping and resolves after a few minutes after waking. He is working with his hands and uses vibratory tools. Entire hand is affected on each side. He has not tried any medications for this. 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 PFSH Medical History Stroke Inguinal hernia Surgical History Hx of inguinal hernia surgery History of knee surgery History of hand surgery Family History Mother Cancer Father Cardiovascular disease Social History (Updated 07/06/25 @ 08:32 by Addie Flores CMA) Household Members: None Housing: Other Housing Other:: Mobile home 75 years or older and lives alone: No Alcohol intake: current Alcohol intake frequency: a few times a week Alcohol type: wine Patient Tobacco Use Status: Never used Tobacco e-Cigarette/Vaping Use: Never Used Second Hand Smoke Exposure: No service: No Current occupational status: retired Current occupational exposures/hazards: No Cognitive needs: No Hearing needs: No Vision needs: No Questionnaire Thrive Questionnaire Date Thrive assessed: 08/20/24 I am a: Patient What is your living situation today?: I have a steady place to live Within the past 12 months, did the food you bought not last and you didn't have the money to get more?: Never true Within the past 12 months, did you worry whether your food would run out before you got money to buy more?: Never true Do you have trouble paying for medicines?: No Do you have trouble getting transportation to medical appointments?: No Do you have trouble paying your heating and electricity bill?: No Do you have trouble taking care of your child, family member or friend?: No Do you have trouble with day-to-day activities such as bathing, preparing meals, shopping, managing finances, etc.?: No Are you currently unemployed and looking for a job?: I choose not to answer this question Are you interested in more education?: I choose not to answer this question Please select the resources that you would like help with: Utilities Currently or been in a relationship where the following occur: No concerns reported THRIVE Score: 0 AAMIR-7 AMB Questionnaire AAMIR-7 Date AAMIR - 7 assessed: 01/31/24 Source: Developed by Drs. Derrick Garcia, Sirena Whitlock, Moo Lynn and colleagues, with an educational maycol from [employer]. Review of Systems Const Denies chills, Denies fatigue, Denies fever(s), Denies headache(s) and Denies weakness ENT Denies dizziness and Denies headache(s) Card Denies chest pain, Denies lightheadedness, Denies dyspnea and Denies other (Palpitations) Resp Denies cough, Denies dyspnea, Denies wheezing and Denies other ( shortness of breath) Musc Reports numbness and Reports tingling Neuro Details: See HPI Denies dizziness, Denies headache(s), Reports numbness, Reports tingling, Reports paresthesias and Denies weakness Psych Denies anxiety and Denies depression Endo Denies fatigue Aller/Immun Denies wheezing Physical exam (Primary Care) Vital Signs: Last Vital Signs Temp 97.6 F 07/06/25 08:33 Pulse 64 07/06/25 08:33 Resp 16 07/06/25 08:33 BP 116/62 07/06/25 08:33 Pulse Ox 98 07/06/25 08:33 Oxygen Delivery Method Room Air 07/06/25 08:33 BMI result Body Mass Index 22.9 Tobacco/Smoking Status: Tobacco use Status Tobacco use date assessed 07/06/25 07/06/25 08:36 Patient Tobacco Use Status Never used Tobacco 07/06/25 08:32 e-Cigarette/Vaping Use Never Used 07/06/25 08:32 Thrive Assessment: Date of Thrive Assessment Date Thrive assessed 08/20/24 07/06/25 08:29 Currently or been in a relationship where the following occur: No concerns reported Const General: no acute distress and well developed Nutritional Appearance: well nourished Orientation/consciousness: patient oriented x3 HENMT Head: Yes normocephalic and Yes atraumatic Eyes General: appearance normal, both eyes and all related structures Pupils: Equal, round and reactive pupils present EOM: EOMs intact bilaterally Resp Effort & Inspection: normal respiratory effort Auscultation: clear to auscultation bilaterally Cardio Rate: regular rate Rhythm: regular rhythm Heart sounds: S1 normal heart sound present, S2 normal heart sound present, no gallops, no murmurs and no rubs Neuro Other: Normal strength in bilateral hands Negative Phalen and Tinel signs Normal sensation to light touch at fingertips bilaterally General: patient oriented x3 and gait normal Cranial nerves: Yes Equal, round and reactive pupils present Psych Affect: normal affect Coding Level of Care Code Est Pt Level 3 (70281) Diagnoses Numbness in both hands R20.0 Assessment & Plan Assessment & Plan (1) Numbness in both hands: Code(s): R20.0 - Anesthesia of skin Category: Medical Plan: 74-year-old male presents with ongoing episodes of bilateral hand numbness each morning. No neck or shoulder pain. He does have mild arthritis an fingers of each hand. He has not tried any medications for this. He does work with his hand and use many vibratory tools. Phalen and Tinel tests were negative Underlying lesion could be in neck though he has no neck pain. This could be an inflammatory process such as arthritis Less likely carpal tunnel as distribution is the entire hand and special tests above were negative. Will check x-ray of cervical spine and also bilateral hands. Will check inflammatory markers and B12 Will have him try to avoid using vibratory power tools for period of time to see if symptoms improve. Will have him try NSAID for few days to see if problem improves. Also having him avoid salt and sodium to decrease any swelling though he denies any swelling in feet or hands Lastly, referring him to Neurology to consider nerve conduction testing Orders: Orders XR hand LT min 3V Today R20.0 - Anesthesia of skin Vitamin B12 and Folate Today E53.8 - Deficiency of other specified B group vitamins, R20.0 - Anesthesia of skin Rheumatoid Factor Today R20.0 - Anesthesia of skin XR cervical spine 2V Today R20.0 - Anesthesia of skin XR hand RT min 3V Today R20.0 - Anesthesia of skin Erythrocyte Sedimentation Rate Today R20.0 - Anesthesia of skin CRP High Sensitivity Today R20.0 - Anesthesia of skin Referrals Neurology Referral R20.0 - Anesthesia of skin
[2025-07-06 08:33] VITALS: BP 116/62; PULSE 64; RESP 16; TEMP 36.4; O2SAT 98; BMI 22.9
== END 2025-07-06 09:07 | disposition home or self-care (01) ==
LOC: HO.HMCFM 08:27
PROVIDERS: PCP Family Medicine; Visit Provider Family Medicine
DX: R20.0 Anesthesia of skin (principal)

== ENCOUNTER 2025-07-06 08:26 | Outpatient (REF) | payer MEDICARE, SELFPAY ==
[2025-07-06 12:48] LABS: Folate 3.8 ng/mL (> or = 4.0); Vitamin B12 566 pg/mL (200-900)
[2025-07-06 13:15] LABS: Erythrocyte Sedimentation Rate 8 MM/HR (0-15)
== END 2025-07-06 08:27 | disposition home or self-care (01) ==
LOC: HO.WFDLDS 08:26
PROVIDERS: PCP Family Medicine; Visit Provider Family Medicine
DX: R20.0 Anesthesia of skin (principal); E53.8 Deficiency of other specified B group vitamins; R20.2 Paresthesia of skin
CPT/HCPCS: 36415; 82607; 82746; 85652; 86141; 86431; 99212